=== PATIENT | male | born 1940 | race Caucasian/White ===

== ENCOUNTER 2017-12-04 10:30 | Inpatient (IN) | payer OTHER, MEDICARE ==
[~2017-12-04] VITALS: Ht 182.9 cm; Wt 80.5 kg
[2017-12-04 12:00] VITALS: BP 159/71; PULSE 53; RESP 19; TEMP 97.6; O2SAT 100
[2017-12-04] MEDS ORDERED: NITR1SUB3 SL (14:50)
[2017-12-04] MEDS ORDERED: FOLI1TAB6 (14:50)
[2017-12-04] MEDS ORDERED: RANI150T PO (14:50)
[2017-12-04] MEDS ORDERED: METO50TA PO (14:50)
[2017-12-04] MEDS ORDERED: TERA10CA3 PO (14:50)
[2017-12-04] MEDS ORDERED: POME1CAP (14:50)
[2017-12-04] MEDS ORDERED: LISI40TA PO (14:50)
[2017-12-04] MEDS ORDERED: ASPI-183 PO (14:50)
[2017-12-04] MEDS ORDERED: NALOXONE HCL 0.4 MG/ML AMP IV PUSH PRN (15:00)
[2017-12-04] MEDS ORDERED: Post-op Orders (for Pharmacy) XX ONE (15:00)
[2017-12-04] MEDS ORDERED: SODIUM CHLORIDE 0.9% FLUSH 10 ML FLUSH IV FLUSH PRN (15:00)
[2017-12-04 16:00] VITALS: BP 141/65; PULSE 54; RESP 18; TEMP 97.4; O2SAT 100
[2017-12-04] MEDS: SODIUM CHLOR 0.9% 1000 ML INJ 1,000 ML IV SCH (17:11)
[2017-12-04] MEDS: PANTOPRAZOLE SOD 40 MG DELAYED RELEASE TAB PO SCH (17:11)
--- NOTE | 2017-12-04 17:12 | RADRPT ---
EXAM DATE/TIME: 12/04/2017 15:24 [facility] COMPARISON: No previous studies available for comparison. INDICATIONS : Evaluate for pneumonia, pneumothorax, or communicable disease. MEDICAL HISTORY : None. SURGICAL HISTORY : None. ENCOUNTER: Initial ACUITY: 1 day PAIN SCORE: 0/10 LOCATION: Bilateral chest FINDINGS: Mild elevation of the left hemidiaphragm. Minimal bibasilar interstitial and linear parenchymal opaci ty at the right lung base. Cardiomediastinal contours are within normal limits. Bony thorax is intact . CONCLUSION: 1. Minimal bibasilar scarring/atelectasis. 1. Saúl Casanova MD on December 04, 2017 at 17:00 Board Certified Radiologist. This report was verified electronically.
--- NOTE | 2017-12-04 17:54 | ECHRPT ---
Indication: PRE OP AORTO BIFEM CONCLUSIONS Mildly dilated left ventricle. Wall thickness is normal. The left ventricular systolic function is mildly reduced with an estimated ejection fraction in the range of 45- 50%. Trace mitral valve regurgitation. Trivial pulmonary valve regurgitation. BP: / HR: Rhythm: MEASUREMENTS (Male / Female) Normal Values Technical Quality: 2D ECHO LV Diastolic Diameter PLAX 5.0 cm 4.2 - 5.9 / 3.9 - 5.3 cm LV Systolic Diameter PLAX 4.1 cm IVS Diastolic Thickness 1.1 cm 0.6 - 1.0 / 0.6 - 0.9 cm LVPW Diastolic Thickness 0.7 cm 0.6 - 1.0 / 0.6 - 0.9 cm LV Relative Wall Thickness 0.4 RV Internal Dim ED PLAX 2.1 cm LA Systolic Diameter LX 3.5 cm 3.0 - 4.0 / 2.7 - 3.8 cm M-MODE Aortic Root Diameter MM 3.8 cm AV Cusp Separation MM 2.3 cm DOPPLER Mitral E Point Velocity 102.0 cm/s Mitral A Point Velocity 66.1 cm/s Mitral E to A Ratio 1.5 TR Peak Velocity 236.0 cm/s TR Peak Gradient 22.3 mmHg FINDINGS LEFT VENTRICLE Mildly dilated left ventricle. Wall thickness is normal. The left ventricular systolic function is mildly reduced with an estimated ejection fraction in the range of 45- 50%. Regional wall motion abnormalities. RIGHT VENTRICLE Normal right ventricular size and systolic function. LEFT ATRIUM The left atrial size is normal. RIGHT ATRIUM The right atrial size is normal. ATRIAL SEPTUM Normal atrial septal thickness without atrial level shunting by limited color doppler interrogation. AORTA The aortic root and proximal ascending aorta are normal in size on limited imaging. MITRAL VALVE Trace mitral valve regurgitation. AORTIC VALVE Trileaflet aortic valve. No aortic valve stenosis or regurgitation. TRICUSPID VALVE Structurally normal tricuspid valve. No tricuspid valve stenosis or regurgitation. PULMONARY VALVE Trivial pulmonary valve regurgitation. VESSELS The inferior vena cava is normal in size. PERICARDIUM No pericardial effusion. Aquiles Ayers MD, FACC, [facility] (Electronically Signed) Final Date:04 December 2017 17:53
--- NOTE | 2017-12-04 18:21 | MH ---
cc: Madi Anna MD DATE OF ADMISSION: 12/04/2017 HISTORY OF PRESENT ILLNESS: This 77-year-old pleasant gentleman was referred to my office. The patient has severe claudication and rest pain and was evaluated at [facility]. The patient at this point cannot walk more than about 30 feet and at that point has severe pain in both hips and both legs. He also has rest pain when hanging legs down. PAST MEDICAL HISTORY: Coronary artery disease, hypertension, hyperlipidemia, gastroesophageal reflux, osteoarthritis, benign prostatic hypertrophy. PAST SURGICAL HISTORY: The patient says he had some sort of a stent done and recent SPECT scan was negative. Myocardial infarction in 2002 with percutaneous angioplasty and stents in LAD and diagonal. MEDICATIONS: Include: 1. Atorvastatin. 2. Folic acid. 3. Lisinopril. 4. Metoprolol. 5. Zantac. 6. Terazosin. 7. Aspirin. PHYSICAL EXAMINATION: GENERAL: Shows pleasant 77-year-old gentleman in no acute distress. HEENT: Normocephalic. No trauma to the head. Pupils equal, reactive. Extraocular muscles intact. NECK: Supple. Bilateral carotid pulses and faint left-sided bruit. CHEST: Clear, bilateral breath sounds, decreased somewhat over both lung ramon consistent with some degree of chronic obstructive pulmonary disease. HEART: Regular rhythm. The patient has ictus cordis faint murmur consistent with some degree of mitral insufficiency. ABDOMEN: Soft. No rebound, no guarding, no masses. EXTREMITIES: The patient has very faint femoral pulses, barely palpable on the right and none on the left. They are both dopplerable. The popliteal pulses are weak and dopplerable and dorsalis pedis and posterior tibial are bilateral and weak and dopplerable. Feet are warm, but display severe dependent rubor and elevation pallor. No ulcerations noted. When hanging down, the patient has pain in both legs. NEUROLOGIC: The patient is intact. ASSESSMENT AND PLAN: The patient had several studies that were done at the [facility] recently. The patient has regadenoson pharmacologic stress test that apparently revealed a fixed defect, anterior wall of the left ventricle. The patient had no symptoms. Other than that was nondiagnostic, according to the cardiology. This patient has multiple problems. Severe peripheral vascular disease with ischemic pain at rest is associated with high-degree of limb loss. I have explained this to the patient. CTA with runoff reveals right-sided complete occlusion of the external iliac artery, severe stenosis of the common iliac artery. On the left side, the patient has occlusion of the common iliac artery and stenosis of the external iliac. Both groins shows severe stenosis of the common femoral arteries and both superficial femoral arteries are occluded distally with severe stenosis proximally with reconstitution of popliteal arteries. At this point, the patient will need aortobifemoral bypass with a possible distal bypass to follow depending on the intraoperative findings. I do not believe that any other procedure except maybe axillobifemoral bypass will be adequate. Considering the patient's age, I believe aortobifemoral bypass is the best option and considering his cardiac workup, I believe the same. The patient will be now admitted and have the surgery after basic workup. MD SAMIA Perez/KARENA , 05:39 PM , 06:20 PM
[2017-12-04 18:25] LABS: AUTOMATED NEUTROPHIL # 2.6 TH/MM3 (1.8-7.7); BASOPHIL % 0.9 % (0.0-2.0); EOSINOPHIL # 0.1 TH/MM3 (0-0.4); EOSINOPHIL % 1.8 % (0.0-4.0); HEMATOCRIT 38.8 % (39.0-51.0); HEMOGLOBIN 13.3 GM/DL (13.0-17.0); LYMPH % 28.1 % (9.0-44.0); LYMPHOCYTE # 1.4 TH/MM3 (1.0-4.8); MEAN CELL VOLUME 105.5 FL (80.0-100.0); MEAN CORPUSCULAR HEMOGLOBIN 36.1 PG (27.0-34.0); MEAN CORPUSCULAR HGB CONC 34.2 % (32.0-36.0); MEAN PLATELET VOLUME 9.5 FL (7.0-11.0); MONO % 16.8 % (0.0-8.0); MONOCYTE # 0.8 TH/MM3 (0-0.9); NEUT % 52.4 % (16.0-70.0); PLATELET COUNT 178 TH/MM3 (150-450); RED BLOOD COUNT 3.68 MIL/MM3 (4.50-5.90); RED CELL DISTRIBUTION WIDTH 12.8 % (11.6-17.2); WHITE BLOOD COUNT 4.9 TH/MM3 (4.0-11.0)
[2017-12-04 18:32] LABS: INTERNATIONAL NORMALIZED RATIO 1.1 RATIO; PROTHROMBIN TIME - PATIENT 11.2 SEC (9.8-11.6)
[2017-12-04 18:40] LABS: ALBUMIN 3.9 GM/DL (3.4-5.0); BICARBONATE 27.5 MEQ/L (21.0-32.0); CALCIUM 8.6 MG/DL (8.5-10.1); CREATININE 1.06 MG/DL (0.60-1.30); DIRECT BILIRUBIN ADULT 0.2 MG/DL (0.0-0.2)
[2017-12-04 18:42] LABS: INDIRECT BILIRUBIN 0.5 MG/DL (0.0-0.8); TOTAL BILIRUBIN ADULT 0.7 MG/DL (0.2-1.0); TOTAL PROTEIN 8.1 GM/DL (6.4-8.2)
[2017-12-04] MEDS ORDERED: IOHEXOL 350 MG/ML 10 ML VIAL (for RAD DIAG) IVCONTRAST ONE (20:25)
[2017-12-04 20:52] VITALS: BP 175/73; PULSE 69; RESP 18; TEMP 97.9; O2SAT 98
[2017-12-04] MEDS: METOPROLOL TARTRATE 50 MG TAB PO SCH (20:54)
[2017-12-04] MEDS: DOCUSATE SODIUM 100 MG CAP PO SCH (20:54)
[2017-12-04] MEDS: SODIUM CHLORIDE 0.9% FLUSH 10 ML FLUSH IV FLUSH SCH (20:55)
--- NOTE | 2017-12-04 21:51 | RADRPT ---
EXAM DATE/TIME: 12/04/2017 20:18 [facility] COMPARISON: No previous studies available for comparison. INDICATIONS : Left lower extremity occlusion. IV CONTRAST: 100 cc Omnipaque 350 (iohexol) IV RADIATION DOSE: 2.31 CTDIvol (mGy) MEDICAL HISTORY : Cardiovascular disease. Hypertension. SURGICAL HISTORY : None. ENCOUNTER: Initial ACUITY: 1 day PAIN SCALE: 0/10 LOCATION: Left leg TECHNIQUE: Volumetric scanning was performed using a multi-row detector CT scanner. The data was post processed with a variety of visualization algorithms including full volume maximum intensity pr ojection, multi-planar sliding thin slab reformation, curved planar reformation, and surface renderin g techniques. Using automated exposure control and adjustment of the mA and/or kV according to patie nt size, radiation dose was kept as low as reasonably achievable to obtain optimal diagnostic quality images. DICOM format image data is available electronically for review and comparison. FINDINGS: ABDOMINAL AORTA: Moderate atherosclerotic vascular calcifications are present in nondilated abdominal aorta. Calcified plaque is seen at the origin of the celiac and SMA. SMA stenosis is borderline si gnificant. Calcified plaque is seen at the origin of the left renal not felt to be significant. Vaughn nosis on the right renal is borderline significant. . RIGHT LEG: Extensive iliac and aortoiliac disease is present with a large amount of plaque at the origin of the right common iliac extending into the right common femoral a cross the entire l ength of the iliac this is probably significant. Large amount of calcific plaque is seen at the origin of the right common femoral and is scattered throughout a small SFA. The profunda disappears in the thigh. Large amount calcification is present in the tibial peroneal trunk calcified anterior tibial, pe roneal and posterior tibial vessels identified. Very little runoff to the foot from 8 to lateralize dorsalis pedis. The posterior tibial is the worst vessel in the calf. LEFT LEG: Similar aortoiliac disease is present at the origin of the left common il iac extending into the external and common femoral. Short segment occlusion is seen in the common f emoral with large inferior epigastric collaterals. Extensively calcified superficial femoral artery is present providing very poor runoff to the popliteal artery. The profunda is severely compromised by a large amount of plaque and is very small and diminutive. Large amount calcification is seen in the popliteal artery extending into the trifurcation The anterior tibial artery provides most of t he runoff to the foot . The peroneal artery and anterior tibial artery do not provide use of coronal to foot. ANCILLARY FINDINGS: Calcified pericardium is noted. Liver is small. Densely calcified mesenteric vessels are evident. There is no pancreatic mass. There is no renal mass. There is no adenopathy. Multiple diverticuli in the sigmoid colon without diverticulitis. CONCLUSION: Significant aortoiliac disease with inflow stenosis compromising inflow. Poor SFA runoff to the foot on the right. Short segment common femoral occlusion on the left with poor SFA runoff to the foot. Danny Holley MD FACR on December 04, 2017 at 21:36 Board Certified Radiologist. This report was verified electronically.
[2017-12-04] MEDS: TERAZOSIN HCL 5 MG CAP PO SCH (22:12)
[2017-12-05] VITALS: BP 122/60; PULSE 54; RESP 20; TEMP 97.8; O2SAT 99
[2017-12-05] MEDS: SODIUM CHLOR 0.9% 1000 ML INJ 1,000 ML IV SCH ×2 (04:08→14:57)
[2017-12-05 06:47] LABS: BASOPHIL % 0.9 % (0.0-2.0); EOSINOPHIL # 0.2 TH/MM3 (0-0.4); HEMATOCRIT 36.4 % (39.0-51.0); HEMOGLOBIN 12.8 GM/DL (13.0-17.0); LYMPH % 28.1 % (9.0-44.0); LYMPHOCYTE # 1.1 TH/MM3 (1.0-4.8); MEAN CELL VOLUME 103.5 FL (80.0-100.0); MEAN CORPUSCULAR HEMOGLOBIN 36.3 PG (27.0-34.0); MEAN CORPUSCULAR HGB CONC 35.1 % (32.0-36.0); MEAN PLATELET VOLUME 9.4 FL (7.0-11.0); MONO % 14.5 % (0.0-8.0); MONOCYTE # 0.6 TH/MM3 (0-0.9); NEUT % 52.5 % (16.0-70.0); PLATELET COUNT 151 TH/MM3 (150-450); RED BLOOD COUNT 3.52 MIL/MM3 (4.50-5.90); RED CELL DISTRIBUTION WIDTH 12.8 % (11.6-17.2); WHITE BLOOD COUNT 3.9 TH/MM3 (4.0-11.0)
[2017-12-05 06:53] LABS: INTERNATIONAL NORMALIZED RATIO 1.1 RATIO; PROTHROMBIN TIME - PATIENT 11.5 SEC (9.8-11.6)
[2017-12-05 07:07] LABS: ALBUMIN 3.2 GM/DL (3.4-5.0); BICARBONATE 24.9 MEQ/L (21.0-32.0); CALCIUM 8.2 MG/DL (8.5-10.1); CREATININE 0.95 MG/DL (0.60-1.30); DIRECT BILIRUBIN ADULT 0.2 MG/DL (0.0-0.2)
[2017-12-05 07:10] LABS: INDIRECT BILIRUBIN 0.5 MG/DL (0.0-0.8); TOTAL BILIRUBIN ADULT 0.7 MG/DL (0.2-1.0); TOTAL PROTEIN 6.9 GM/DL (6.4-8.2)
[2017-12-05 08:00] VITALS: BP 122/72; PULSE 63; RESP 17; TEMP 98.2; O2SAT 99
--- NOTE | 2017-12-05 08:39 | PD.CONS ---
HPI Service [facility] Consult Requested By Reason for Consult medical management [facility]: History of Present Illness patient is a 77 y/o male with history of CAD, hypertension, who's been complaining of claudication for a while. he says that now he can walk just less than a block and each time he has to rest a bit to get some relief from the leg pain.he was found to have PVD for which he's been admitted to the hospital and will undergo aortobifemoral bypass per vascular surgery. he denies any chest pain, sob at this time. he says that he's had some hoarseness that has been going on for a month but he says that he had full work-up including laryngoscopy which was normal. Review of Systems Constitutional: DENIES: Fever, Weight loss, Chills, Night Sweats Eyes: DENIES: Blurred vision, Diplopia, Vision loss, Double Vision Ears, nose, mouth, throat: DENIES: Tinnitus, Vertigo, Throat pain, Epistaxis Respiratory: DENIES: Apneas, Cough, Snoring, Wheezing, Hemoptysis, Sputum production, Shortness of breath Cardiovascular: DENIES: Chest pain, Palpitations, Syncope, Dyspnea on Exertion , PND, Lower Extremity Edema, Orthopnea, Claudication Gastrointestinal: DENIES: Abdominal pain, Black stools, Bloody stools, Constipation, Diarrhea, Nausea, Vomiting, Difficulty Swallowing, Anorexia Genitourinary: DENIES: Urinary frequency, Urgency, Hematuria, Dysuria Musculoskeletal: DENIES: Joint pain, Muscle aches, Stiffness, Joint Swelling Integumentary: DENIES: Rash Neurologic: DENIES: Abnormal gait, Headache, Localized weakness, Paresthesias, Seizures, Speech Problems, Tremor, Poor Balance Psychiatric: DENIES: Anxiety, Confusion, Mood changes, Depression, Hallucinations, Agitation, Suicidal Ideation, Homicidal Ideation, Delusions claudication/ hoarseness. Past Family Social History Allergies: Coded Allergies: No Known Allergies (Unverified , 12/04/17) Past Medical History CAD/ hypertension Past Surgical History foot surgery/vasectomy. Reported Medications aspirin/ lisinopril/ metoprolol. Active Ordered Medications Inpatient Medications Acetaminophen/ Hydrocodone Bitart (Alexander 5-325 Mg) 1 tab Q4H PRN PO PAIN SCALE 3 TO 5; Start 12/04/17 at 15:00 Aspirin (Aspirin) 325 mg DAILY PO ; Start 12/05/17 at 09:00 Docusate Sodium (Colace) 100 mg BID PO ; Start 12/04/17 at 21:00 Enoxaparin Sodium (Lovenox Inj) 40 mg Q24H SQ ; Start 12/04/17 at 15:00; Status UNV Lisinopril (Prinivil) 40 mg DAILY PO ; Start 12/05/17 at 09:00 Metoprolol Tartrate (Lopressor) 50 mg BID PO Last administered on 12/04/17at 20: 54; Start 12/04/17 at 21:00 Miscellaneous Information (Post-op Orders (for Pharmacy)) STAT ONCE XX ; Start 12/04/17 at 15:00; Stop 12/04/17 at 15:01; Status UNV Naloxone HCl (Narcan Inj) 0.4 mg UNSCH PRN IV PUSH SEE LABEL COMMENTS; Start at 15:00 Ondansetron HCl (Zofran Inj) 4 mg Q6H PRN IV PUSH NAUSEA OR VOMITING; Start 12/04/17 at 15:00 Pantoprazole Sodium (Protonix) 40 mg Q24H PO Last administered on 12/04/17at 17: 11; Start 12/04/17 at 15:00 Sodium Chloride (NS Flush) 2 ml BID IV FLUSH Last administered on 12/04/17at 20: 55; Start 12/04/17 at 21:00 Terazosin HCl (Hytrin) 20 mg HS PO Last administered on 12/04/17at 22:12; Start 12/04/17 at 21:00 Family History not significant. Social History quit smoking years ago- drinks occasionally. Physical Exam Vital Signs Vital Signs Date Time Temp Pulse Resp B/P (MAP) Pulse Ox O2 Delivery O2 Flow Rate FiO2 12/05/17 00:00 97.8 54 20 122/60 (80) 99 12/04/17 20:52 97.9 69 18 175/73 (107) 98 12/04/17 16:00 97.4 54 18 141/65 (90) 100 12/04/17 12:00 97.6 53 19 159/71 (100) 100 Physical Exam GENERAL: This is a well-nourished, well-developed patient, in no apparent distress. SKIN: No rashes, ecchymoses or lesions. Cool and dry. HEAD: Atraumatic. Normocephalic. No temporal or scalp tenderness. EYES: Pupils equal round and reactive. Extraocular motions intact. No scleral icterus. No injection or drainage. ENT: Nose without bleeding, purulent drainage or septal hematoma. Throat without erythema, tonsillar hypertrophy or exudate. Uvula midline. Airway patent. NECK: Trachea midline. No JVD or lymphadenopathy. Supple, nontender, no meningeal signs. CARDIOVASCULAR: Regular rate and rhythm without murmurs, gallops, or rubs. RESPIRATORY: Clear to auscultation. Breath sounds equal bilaterally. No wheezes , rales, or rhonchi. GASTROINTESTINAL: Abdomen soft, non-tender, nondistended. No hepato-splenomegaly , or palpable masses. No guarding. MUSCULOSKELETAL: Extremities without clubbing, cyanosis, or edema. No joint tenderness, effusion, or edema noted. No calf tenderness. Negative Homans sign bilaterally. NEUROLOGICAL: Awake and alert. Cranial nerves II through XII intact. Motor and sensory grossly within normal limits. Five out of 5 muscle strength in all muscle groups. Normal speech. Laboratory Laboratory Tests Test 12/04/17 17:35 12/05/17 05:35 White Blood Count 4.9 3.9 Red Blood Count 3.68 3.52 Hemoglobin 13.3 12.8 Hematocrit 38.8 36.4 Mean Corpuscular Volume 105.5 103.5 Mean Corpuscular Hemoglobin 36.1 36.3 Mean Corpuscular Hemoglobin Concent 34.2 35.1 Red Cell Distribution Width 12.8 12.8 Platelet Count 178 151 Mean Platelet Volume 9.5 9.4 Neutrophils (%) (Auto) 52.4 52.5 Lymphocytes (%) (Auto) 28.1 28.1 Monocytes (%) (Auto) 16.8 14.5 Eosinophils (%) (Auto) 1.8 4.0 Basophils (%) (Auto) 0.9 0.9 Neutrophils # (Auto) 2.6 2.0 Lymphocytes # (Auto) 1.4 1.1 Monocytes # (Auto) 0.8 0.6 Eosinophils # (Auto) 0.1 0.2 Basophils # (Auto) 0.0 0.0 CBC Comment DIFF FINAL DIFF FINAL Differential Comment Prothrombin Time 11.2 11.5 Prothromb Time International Ratio 1.1 1.1 Blood Urea Nitrogen 8 7 Creatinine 1.06 0.95 Random Glucose 98 86 Total Protein 8.1 6.9 Albumin 3.9 3.2 Calcium Level 8.6 8.2 Alkaline Phosphatase 98 84 Aspartate Amino Transf (AST/SGOT) 25 22 Alanine Aminotransferase (ALT/SGPT) 22 18 Total Bilirubin 0.7 0.7 Direct Bilirubin 0.2 0.2 Sodium Level 134 137 Potassium Level 3.9 3.8 Chloride Level 100 105 Carbon Dioxide Level 27.5 24.9 Anion Gap 7 7 Estimat Glomerular Filtration Rate 68 77 Indirect Bilirubin 0.5 0.5 Result Diagram: 12/05/17 0535 12/05/17 0535 Imaging Last Impressions Chest X-Ray 12/04/17 0000 Signed Impressions: Service Date/Time: Monday, December 04, 2017 15:24 - CONCLUSION: 1. Minimal bibasilar scarring/atelectasis. 1. Saúl Casanova MD Aorta w/Runoff CTA 12/04/17 0000 Signed Impressions: Service Date/Time: Monday, December 04, 2017 20:18 - CONCLUSION: Significant aortoiliac disease with inflow stenosis compromising inflow. Poor SFA runoff to the foot on the right. Short segment common femoral occlusion on the left with poor SFA runoff to the foot. Danny Holley MD FACR Assessment and Plan Assessment and Plan A/P - PVD CTA runoff ; Significant aortoiliac disease with inflow stenosis compromising inflow. Poor SFA runoff to the foot on the right. Short segment common femoral occlusion on the left with poor SFA runoff to the foot. plan for aortobifemoral bypass- per vascular surgery -CAD- s/p stent placement; continue aspirin and metoprolol/ echo with EF 45% -hypertension; resumed home meds -DVT prophylaxis with subq Lovenox. thank you for the consult. Discussed Condition With the patient. Kiah Alicia MD Dec 05, 2017 08:39
[2017-12-05] MEDS: DOCUSATE SODIUM 100 MG CAP PO SCH ×2 (09:00→21:00)
[2017-12-05] MEDS: SODIUM CHLORIDE 0.9% FLUSH 10 ML FLUSH IV FLUSH SCH ×2 (09:00→21:00)
[2017-12-05] MEDS: LISINOPRIL 20 MG TAB PO SCH (09:10)
[2017-12-05] MEDS: ASPIRIN 325 MG TAB PO SCH (09:11)
[2017-12-05] MEDS: METOPROLOL TARTRATE 50 MG TAB PO SCH ×2 (09:11→21:59)
[2017-12-05 12:00] VITALS: BP 132/62; PULSE 53; RESP 17; TEMP 97.6; O2SAT 99
--- NOTE | 2017-12-05 13:18 | PD.CAR.PN ---
CVT Progress Note Subjective/Hospital Course: 12/05/2017 As above noted in the H&P this patient has severe diffuse peripheral vascular disease with claudication at rest Patient has near total occlusion of common iliac arteries and then occlusion of the external iliac artery more distally with severe common femoral near occlusive disease and multilevel stenosis of both SFAs in the range of 90% Proximal popliteal arteries are equally diseased and trifurcations are stenosed in both legs Dominant vessel to left and right foot is anterior tibial artery and rest of the vessels are bits and pieces segmented throughout Patient needs aortobifemoral bypass and essentially bilateral femoral-popliteal bypass but his left leg is more symptomatic even at rest Patient will undergo aortobifemoral bypass and possibly left femoral-popliteal bypass tomorrow There is a small chance that aorta will be so calcified that it would be hard to enter. At that point we would convert to axillobifemoral bypass Discussed with patient at length the benefits and the risks of the procedure Objective: Vital Signs Date Time Temp Pulse Resp B/P (MAP) Pulse Ox O2 Delivery O2 Flow Rate FiO2 12/05/17 12:00 97.6 53 17 132/62 (85) 99 12/05/17 08:00 98.2 63 17 122/72 (89) 99 12/05/17 00:00 97.8 54 20 122/60 (80) 99 12/04/17 20:52 97.9 69 18 175/73 (107) 98 12/04/17 16:00 97.4 54 18 141/65 (90) 100 Labs: Laboratory Tests Test 12/05/17 05:35 White Blood Count 3.9 TH/MM3 (4.0-11.0) Red Blood Count 3.52 MIL/MM3 (4.50-5.90) Hemoglobin 12.8 GM/DL (13.0-17.0) Hematocrit 36.4 % (39.0-51.0) Mean Corpuscular Volume 103.5 FL (80.0-100.0) Mean Corpuscular Hemoglobin 36.3 PG (27.0-34.0) Mean Corpuscular Hemoglobin Concent 35.1 % (32.0-36.0) Red Cell Distribution Width 12.8 % (11.6-17.2) Platelet Count 151 TH/MM3 (150-450) Mean Platelet Volume 9.4 FL (7.0-11.0) Neutrophils (%) (Auto) 52.5 % (16.0-70.0) Lymphocytes (%) (Auto) 28.1 % (9.0-44.0) Monocytes (%) (Auto) 14.5 % (0.0-8.0) Eosinophils (%) (Auto) 4.0 % (0.0-4.0) Basophils (%) (Auto) 0.9 % (0.0-2.0) Neutrophils # (Auto) 2.0 TH/MM3 (1.8-7.7) Lymphocytes # (Auto) 1.1 TH/MM3 (1.0-4.8) Monocytes # (Auto) 0.6 TH/MM3 (0-0.9) Eosinophils # (Auto) 0.2 TH/MM3 (0-0.4) Basophils # (Auto) 0.0 TH/MM3 (0-0.2) CBC Comment DIFF FINAL Differential Comment Prothrombin Time 11.5 SEC (9.8-11.6) Prothromb Time International Ratio 1.1 RATIO Blood Urea Nitrogen 7 MG/DL (7-18) Creatinine 0.95 MG/DL (0.60-1.30) Random Glucose 86 MG/DL (74-106) Total Protein 6.9 GM/DL (6.4-8.2) Albumin 3.2 GM/DL (3.4-5.0) Calcium Level 8.2 MG/DL (8.5-10.1) Alkaline Phosphatase 84 U/L (45-117) Aspartate Amino Transf (AST/SGOT) 22 U/L (15-37) Alanine Aminotransferase (ALT/SGPT) 18 U/L (12-78) Total Bilirubin 0.7 MG/DL (0.2-1.0) Direct Bilirubin 0.2 MG/DL (0.0-0.2) Sodium Level 137 MEQ/L (136-145) Potassium Level 3.8 MEQ/L (3.5-5.1) Chloride Level 105 MEQ/L (98-107) Carbon Dioxide Level 24.9 MEQ/L (21.0-32.0) Anion Gap 7 MEQ/L (5-15) Estimat Glomerular Filtration Rate 77 ML/MIN (>89) Indirect Bilirubin 0.5 MG/DL (0.0-0.8) Result Diagram: 12/05/17 0535 12/05/17 0535 Madi Anna MD Dec 05, 2017 13:18
[2017-12-05] MEDS ORDERED: CEFAZOLIN INJ 2,000 MG in SODIUM CHLORIDE 0.9% INJ 100 ML IV SCH (13:30)
--- NOTE | 2017-12-05 13:40 | EKG ---
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
[2017-12-05] MEDS: PANTOPRAZOLE SOD 40 MG DELAYED RELEASE TAB PO SCH (14:57)
[2017-12-05] MEDS: ENOXAPARIN SODIUM 40 MG/0.4 ML SYRINGE SQ SCH (14:58)
[2017-12-05 16:00] VITALS: BP 132/45; PULSE 59; RESP 18; TEMP 97.9; O2SAT 100
[2017-12-05 20:00] VITALS: BP 149/72; PULSE 60; RESP 18; TEMP 97.7; O2SAT 98
[2017-12-05] MEDS: TERAZOSIN HCL 5 MG CAP PO SCH (21:59)
[2017-12-06] VITALS: BP 152/67; PULSE 69; RESP 18; O2SAT 97
[2017-12-06] MEDS: SODIUM CHLOR 0.9% 1000 ML INJ 1,000 ML IV SCH ×2 (03:08→19:45)
[2017-12-06] MEDS ORDERED: SODIUM CHLORID 0.9% 500 ML IV PRN (03:30)
[2017-12-06] MEDS ORDERED: POVIDONE IODINE 5% (ANTISEPSIS KIT) 4 APPLICATIONS EACH NARE PRN (03:30)
[2017-12-06] MEDS ORDERED: LACTATED RINGER'S 1000 ML IV PRN (03:30)
[2017-12-06] MEDS ORDERED: CHLORHEXIDINE GLUCONATE 2 % 1 PACK (2 CLOTHS) TOPICAL PRN (03:30)
[2017-12-06 04:00] VITALS: BP 140/65; PULSE 65; RESP 18; TEMP 97.7; O2SAT 97
[2017-12-06 08:00] VITALS: BP 148/63; PULSE 67; RESP 16; TEMP 98.2; O2SAT 97
[2017-12-06] MEDS ORDERED: PROTAMINE SULFATE 50 MG/5 ML VIAL ONE (08:15)
[2017-12-06] MEDS ORDERED: HEPARIN SODIUM - IV 10,000 UNITS/10 ML VIAL ONE (08:15)
[2017-12-06] MEDS ORDERED: HEPARIN SODIUM - SQ 10,000 UNITS/ML VIAL ONE ×3 (08:15→16:55)
[2017-12-06] MEDS ORDERED: BUPIVACAINE/EPINEPHRINE 0.25% 50 ML VIAL ONE (08:15)
[2017-12-06] MEDS ORDERED: THROMBIN (TOPICAL) 5,000 UNIT VIAL ONE (08:16)
[2017-12-06] MEDS ORDERED: GELFOAM SIZE 100 ONE (08:16)
[2017-12-06] MEDS ORDERED: ACETAMINOPHEN 1000 MG/100 ML 100 ML IV ONE (08:55)
[2017-12-06] MEDS ORDERED: MIDAZOLAM HCL 2 MG/2 ML VIAL ONE (08:55)
[2017-12-06] MEDS ORDERED: fentaNYL CITRATE 250 MCG/5 ML AMP ONE ×2 (08:56→14:01)
[2017-12-06] MEDS: SODIUM CHLORIDE 0.9% FLUSH 10 ML FLUSH IV FLUSH SCH ×2 (09:00→21:00)
[2017-12-06] MEDS: ASPIRIN 325 MG TAB PO SCH (09:00)
[2017-12-06] MEDS: DOCUSATE SODIUM 100 MG CAP PO SCH ×2 (09:00→21:00)
[2017-12-06] MEDS: METOPROLOL TARTRATE 50 MG TAB PO SCH ×2 (09:08→21:00)
[2017-12-06] MEDS: LISINOPRIL 20 MG TAB PO SCH (09:08)
--- NOTE | 2017-12-06 09:51 | HHI.PR ---
Subjective Remarks in no acute distress. looks comfortable. awaiting surgical intervention. no new complaints. Objective Vitals Vital Signs Date Time Temp Pulse Resp B/P (MAP) Pulse Ox O2 Delivery O2 Flow Rate FiO2 12/06/17 08:00 98.2 67 16 148/63 (91) 97 12/06/17 04:00 97.7 65 18 140/65 (90) 97 12/06/17 00:00 69 18 152/67 (95) 97 12/05/17 20:00 97.7 60 18 149/72 (97) 98 12/05/17 16:00 97.9 59 18 132/45 (74) 100 12/05/17 12:00 97.6 53 17 132/62 (85) 99 I/O 12/05/17 12/05/17 12/05/17 12/06/17 12/06/17 12/06/17 07:00 15:00 23:00 07:00 15:00 23:00 Intake Total 1000 ml 980 ml 960 ml 0 ml Balance 1000 ml 980 ml 960 ml 0 ml Intake Oral 960 ml 0 ml IV Total 1000 ml 980 ml # Voids 3 7 1 # Bowel Movements 7 0 Result Diagram: 12/05/17 0535 12/05/17 0535 Imaging Last Impressions Chest X-Ray 12/04/17 0000 Signed Impressions: Service Date/Time: Monday, December 04, 2017 15:24 - CONCLUSION: 1. Minimal bibasilar scarring/atelectasis. 1. Saúl Casanova MD Aorta w/Runoff CTA 12/04/17 0000 Signed Impressions: Service Date/Time: Monday, December 04, 2017 20:18 - CONCLUSION: Significant aortoiliac disease with inflow stenosis compromising inflow. Poor SFA runoff to the foot on the right. Short segment common femoral occlusion on the left with poor SFA runoff to the foot. Danny Holley MD FACR Objective Remarks GENERAL: This is a well-nourished, well-developed patient, in no apparent distress. CARDIOVASCULAR: Regular rate and regular rhythm without murmurs, gallops, or rubs. RESPIRATORY: Clear to auscultation. Breath sounds equal bilaterally. No wheezes , rales, or rhonchi. GASTROINTESTINAL: Abdomen soft, non-tender, nondistended. Normal, active bowel sounds MUSCULOSKELETAL: Extremities without clubbing, cyanosis, or edema. NEURO: Alert & Oriented x4 to person, place, time, situation. Moves all ext x4 Medications and IVs Inpatient Medications Acetaminophen/ Hydrocodone Bitart ([place] 5-325 Mg) 1 tab Q4H PRN PO PAIN SCALE 3 TO 5; Start 12/04/17 at 15:00 Aspirin (Aspirin) 325 mg DAILY PO Last administered on 12/05/17at 09:11; Start at 09:00 Cefazolin Sodium 2000 mg/Sodium Chloride 120 ml @ 240 mls/hr WARDROBE COORDINATOR IV ; Start 12/05/17 at 13:30; Stop 12/08/17 at 13:29 Chlorhexidine Gluconate (Chlorhexidine 2% Cloth) 3 pack WARDROBE COORDINATOR PRN TOPICAL SEE LABEL COMMENTS; Start 12/06/17 at 03:30; Stop 12/09/17 at 03:29 Docusate Sodium (Colace) 100 mg BID PO ; Start 12/04/17 at 21:00 Enoxaparin Sodium (Lovenox Inj) 40 mg Q24H SQ Last administered on 12/05/17at 14: 58; Start 12/05/17 at 13:00 Lactated Ringer's 1,000 ml @ 30 mls/hr Q24H PRN IV SEE LABEL COMMENTS; Start at 03:30; Stop 12/09/17 at 03:29 Lisinopril (Prinivil) 40 mg DAILY PO Last administered on 12/06/17at 09:08; Start 12/05/17 at 09:00 Metoprolol Tartrate (Lopressor) 50 mg BID PO Last administered on 12/06/17at 09: 08; Start 12/04/17 at 21:00 Miscellaneous Information (Post-op Orders (for Pharmacy)) STAT ONCE XX ; Start 12/04/17 at 15:00; Stop 12/05/17 at 12:32; Status DC Naloxone HCl (Narcan Inj) 0.4 mg UNSCH PRN IV PUSH SEE LABEL COMMENTS; Start at 15:00 Ondansetron HCl (Zofran Inj) 4 mg Q6H PRN IV PUSH NAUSEA OR VOMITING; Start 12/04/17 at 15:00 Pantoprazole Sodium (Protonix) 40 mg Q24H PO Last administered on 12/04/17at 17: 11; Start 12/04/17 at 15:00 Povidone Iodine (Betadine 5% Antisepsis Kit) 1 applic WARDROBE COORDINATOR PRN EACH NARE SEE LABEL COMMENTS; Start 12/06/17 at 03:30; Stop 12/09/17 at 03:29 Sodium Chloride 500 ml @ 30 mls/hr [id number] PRN IV SEE LABEL COMMENTS; Start 12/06/17 at 03:30; Stop 12/09/17 at 03:29 Sodium Chloride (NS Flush) 2 ml BID IV FLUSH Last administered on 12/04/17at 20: 55; Start 12/04/17 at 21:00 Terazosin HCl (Hytrin) 20 mg HS PO Last administered on 12/05/17at 21:59; Start 12/04/17 at 21:00 A/P Assessment and Plan A/P - PVD CTA runoff ; Significant aortoiliac disease with inflow stenosis compromising inflow. Poor SFA runoff to the foot on the right. Short segment common femoral occlusion on the left with poor SFA runoff to the foot. plan for aortobifemoral bypass today- per vascular surgery -CAD- s/p stent placement; continue aspirin and metoprolol/ echo with EF 45% -hypertension; resumed home meds -DVT prophylaxis with subq Lovenox. Discharge Planning for surgical intervention today. Kiah Alicia MD Dec 06, 2017 09:51
[2017-12-06] MEDS ORDERED: SODIUM CHLORIDE 0.9% 10 ML VIAL IV FLUSH ONE (12:00)
[2017-12-06] MEDS ORDERED: ePHEDrine/NS 25 MG/5 ML SYRINGE IV ONE (12:00)
[2017-12-06] MEDS ORDERED: LIDOCAINE HCL 1% PF 5 ML SYRINGE OTHER ONE (12:00)
[2017-12-06] MEDS ORDERED: NORMOSOL R INJ 4,000 ML IV ONE (12:00)
[2017-12-06] MEDS ORDERED: PROPOFOL 200 MG/20 ML AMP IV ONE (12:00)
[2017-12-06] MEDS ORDERED: ceFAZolin INJ 1,000 MG VIAL IV ONE (12:00)
[2017-12-06] MEDS ORDERED: VECURONIUM BROMIDE 20 MG VIAL IV ONE (12:00)
[2017-12-06] MEDS ORDERED: ONDANSETRON HCL 4 MG/2 ML VIAL IV ONE (12:00)
[2017-12-06] MEDS ORDERED: SODIUM CHLORID 0.9% 500 ML INJ 500 ML IV ONE (12:00)
[2017-12-06] MEDS ORDERED: PHENYLEPHRINE HCL 10 MG/ML VIAL IV ONE (12:00)
[2017-12-06] MEDS ORDERED: ROCURONIUM INJ 50 MG/5 ML SYRINGE IV PUSH ONE (12:00)
[2017-12-06] MEDS ORDERED: LACTATED RINGER'S 1000 ML INJ 2,000 ML IV ONE (12:00)
[2017-12-06] MEDS ORDERED: DEXAMETHASONE SOD PHOS 4 MG/ML VIAL IV ONE (12:00)
[2017-12-06] MEDS ORDERED: PHENYLEPH/NS 1000 MCG/10 ML SYR IV ONE (12:00)
[2017-12-06] MEDS: ENOXAPARIN SODIUM 40 MG/0.4 ML SYRINGE SQ SCH (13:00)
[2017-12-06] MEDS ORDERED: ceFAZolin INJ 1,000 MG VIAL ONE (16:32)
[2017-12-06 17:04] LABS: HEMATOCRIT 30.9 % (39.0-51.0); HEMOGLOBIN 10.6 GM/DL (13.0-17.0)
[2017-12-06] MEDS ORDERED: SUGAMMADEX SODIUM 200 MG/2 ML VIAL IV PUSH ONE (17:42)
[2017-12-06] MEDS ORDERED: PIPERACIL-TAZO 4.5 GM PREMIX 100 ML IV ONE (18:00)
[2017-12-06] MEDS ORDERED: VASOPRESSIN 20 UNITS/ML VIAL ONE (18:27)
--- NOTE | 2017-12-06 18:40 | RADRPT ---
EXAM DATE/TIME: 12/06/2017 19:07 [facility] COMPARISON: No previous studies available for comparison. INDICATIONS : Miss needle count. MEDICAL HISTORY : None. SURGICAL HISTORY : None. ENCOUNTER: Subsequent ACUITY: 2 days PAIN SCORE: Non-responsive. LOCATION: [place] FINDINGS: Supine view of the abdomen was performed. The abdominal bowel gas pattern is normal. No abnormal ma sses, calcifications, or organomegaly is seen. The osseous structures are unremarkable. CONCLUSION: Surgical clips, no radiopaque surgical clip or needle. Danny Holley MD FACR on December 06, 2017 at 18:37 Board Certified Radiologist. This report was verified electronically.
[2017-12-06] MEDS: PHENYLEPHRINE 40 MG in D5W 500 ML IV PRN (19:15)
[2017-12-06] MEDS ORDERED: PHENYLEPHRINE HCL 10 MG/ML VIAL ONE (19:26)
[2017-12-06] MEDS: LACTATED RINGER'S 1000 ML INJ 1,000 ML IV SCH (20:05)
--- NOTE | 2017-12-06 20:07 | RADRPT ---
EXAM DATE/TIME: 12/06/2017 20:40 [facility] COMPARISON: CHEST SINGLE AP, December 04, 2017, 15:24. INDICATIONS : Central line placement. MEDICAL HISTORY : None. SURGICAL HISTORY : None. ENCOUNTER: Initial ACUITY: 1 day PAIN SCORE: Non-responsive. LOCATION: Bilateral chest FINDINGS: Nasogastric tube midesophagus. Central line in the superior vena cava. Minimal parenchymal changes left base. CONCLUSION: Central line tip superior vena cava.. Danny Holley MD FACR on December 06, 2017 at 20:01 Board Certified Radiologist. This report was verified electronically.
[2017-12-06] MEDS ORDERED: SODIUM CHLORIDE 0.9% FLUSH 10 ML FLUSH IV FLUSH PRN (20:15)
[2017-12-06] MEDS ORDERED: DO NOT ADM ANY ANTICOAGULANT DRUGS PRN (20:15)
[2017-12-06] MEDS ORDERED: Post-op Orders (for Pharmacy) XX ONE (20:15)
[2017-12-06] MEDS ORDERED: NALOXONE HCL 0.4 MG/ML AMP IV PUSH PRN (20:15)
[2017-12-06] MEDS ORDERED: TERBUTALINE INJ 1 MG/ML AMP SQ PRN (20:30)
--- NOTE | 2017-12-06 20:54 | RADRPT ---
EXAM DATE/TIME: 12/06/2017 20:12 [facility] COMPARISON: CHEST SINGLE AP, December 04, 2017, 15:24. INDICATIONS : Central line placement. MEDICAL HISTORY : None. SURGICAL HISTORY : None. ENCOUNTER: Initial ACUITY: 2 days PAIN SCORE: 0/10 LOCATION: Bilateral chest FINDINGS: Line in good position. Nasogastric tube in esophagus. Pericardial calcifications on the right. Mil d complicated cardiomegaly. CONCLUSION: Mild compensated cardiomegaly Central line in good position. Nasogastric tube midesophagus Danny Holley MD FACR on December 06, 2017 at 20:50 Board Certified Radiologist. This report was verified electronically.
[2017-12-06] MEDS: PANTOPRAZOLE SODIUM 40 MG VIAL IV PUSH SCH (21:00)
[2017-12-06] MEDS: metroNIDAZOLE 500 MG INJ 100 ML IV SCH (21:00)
[2017-12-06] MEDS: TERAZOSIN HCL 5 MG CAP PO SCH (21:00)
[2017-12-06 22:58] VITALS: O2SAT 99
[2017-12-06] MEDS ORDERED: DILTIAZEM HCL 25 MG/5 ML VIAL ONE (22:59)
[2017-12-06 23:00] VITALS: BP_SYST 102; BP_SYST 106; BP_DIAS 45; BP_DIAS 54; PULSE 76; RESP 18; TEMP 98.5; O2SAT 100
[2017-12-07] VITALS (9 sets, daily range): BP systolic 97–147; BP diastolic 37–58; PULSE 72–114; RESP 16–20; TEMP 97.9–98.5; O2SAT 91–99
[2017-12-07] MEDS: LACTATED RINGER'S 1000 ML INJ 1,000 ML IV SCH ×4 (01:05→17:57)
[2017-12-07] MEDS: metroNIDAZOLE 500 MG INJ 100 ML IV SCH ×2 (04:36→12:00)
[2017-12-07 05:02] LABS: AUTOMATED NEUTROPHIL # 9.4 TH/MM3 (1.8-7.7); BASOPHIL % 0.3 % (0.0-2.0); HEMATOCRIT 26.5 % (39.0-51.0); HEMOGLOBIN 9.1 GM/DL (13.0-17.0); LYMPH % 4.4 % (9.0-44.0); LYMPHOCYTE # 0.5 TH/MM3 (1.0-4.8); MEAN CELL VOLUME 104.2 FL (80.0-100.0); MEAN CORPUSCULAR HEMOGLOBIN 35.8 PG (27.0-34.0); MEAN CORPUSCULAR HGB CONC 34.4 % (32.0-36.0); MEAN PLATELET VOLUME 9.6 FL (7.0-11.0); MONO % 7.9 % (0.0-8.0); MONOCYTE # 0.9 TH/MM3 (0-0.9); NEUT % 87.4 % (16.0-70.0); PLATELET COUNT 114 TH/MM3 (150-450); RED BLOOD COUNT 2.55 MIL/MM3 (4.50-5.90); RED CELL DISTRIBUTION WIDTH 12.9 % (11.6-17.2); WHITE BLOOD COUNT 10.8 TH/MM3 (4.0-11.0)
[2017-12-07 05:26] LABS: BICARBONATE 20.8 MEQ/L (21.0-32.0); CALCIUM 6.4 MG/DL (8.5-10.1)
[2017-12-07 05:30] LABS: INTERNATIONAL NORMALIZED RATIO 1.2 RATIO
[2017-12-07 05:40] LABS: CALCIUM-PROTEIN CORRECTED 7.7 MG/DL (8.5-10.1); TOTAL PROTEIN 4.5 GM/DL (6.4-8.2)
--- NOTE | 2017-12-07 06:16 | PD.CONS ---
[facility] Service Critical Care Medicine Consult Requested By Dr. Anna Reason for Consult Critical care management post op following aortobifemoral bypass [facility] of Present Illness 77 yo WM with PMH HTN, PAD who was experiencing rest claudication due to severe stenosis bilateral common femoral artery stenosis. He underwent aortobifemoral bypass and left femoral popliteal bypass by Dr. Anna. He had postoperative hypotension and was placed on aggressive IVF resuscitation and neosynephrine. Despite fluid resuscitation, nurse has not been able to wean neosynephrine below 60 mcg/min. He denies chest pain or SOB. Intraoperatively patient received 5300 crystalloid, EBL was 1200, urine output 650. Preoperative hemoglobin was 13.3. Hemoglobin is now 9.1 Review of Systems Constitutional: DENIES: Fever Endocrine: DENIES: Heat/cold intolerance Ears, nose, mouth, throat: COMPLAINS OF: Hoarseness (constant for several months. ) Respiratory: DENIES: Shortness of breath Cardiovascular: DENIES: Chest pain Gastrointestinal: DENIES: Abdominal pain, Nausea, Vomiting Integumentary: DENIES: Rash Neurologic: DENIES: Headache Psychiatric: DENIES: Confusion Past Family Social History Allergies: Coded Allergies: No Known Allergies (Unverified , 12/04/17) Past Medical History Coronary artery disease with prior myocardial infarction 2002 with stents Hypertension Hyperlipidemia BPH Peripheral arterial disease Past Surgical History Toe surgery Reported Medications Atorvastatin Folic acid Lisinopril Metoprolol Neck Giang in Aspirin Family History Patient denies significant medical history Social History Quit smoking "years ago". States he smoked a pack of cigarettes per day for 30 years States he occasionally has a drink in the evening Denies illicit drug use Physical Exam Vital Signs Vital Signs Date Time Temp Pulse Resp B/P (MAP) Pulse Ox O2 Delivery O2 Flow Rate FiO2 12/07/17 03:00 97.9 72 20 104/54 (71) 99 104/37 (59) 12/07/17 03:00 74 103/39 12/07/17 00:00 66 104/44 12/06/17 23:00 98.5 76 18 102/54 (70) 100 106/45 (65) 12/06/17 23:00 76 106/45 12/06/17 22:58 99 Nasal Cannula 3.00 12/06/17 22:30 66 20 103/55 (71) 100 Nasal Cannula 2 99/48 (65) 12/06/17 21:30 66 20 102/56 (71) 100 Nasal Cannula 2 99/48 (65) 12/06/17 21:15 68 20 90/54 (66) 100 Nasal Cannula 2 92/48 (63) 12/06/17 21:00 74 20 93/61 (72) 100 89/56 (67) 12/06/17 20:45 74 20 93/53 (66) 100 90/40 (57) 12/06/17 20:30 70 20 101/52 (68) 100 97/41 (59) 12/06/17 20:15 64 20 107/52 (70) 100 94/40 (58) 12/06/17 20:00 70 20 83/50 (61) 96 80/45 (57) 12/06/17 19:45 72 20 92/53 (66) 98 86/53 (64) 12/06/17 19:30 65 20 84/50 (61) 95 73/40 (51) 12/06/17 19:26 67 78/40 12/06/17 19:15 79 20 116/56 (76) 98 97/44 (61) 12/06/17 19:15 79 97/44 12/06/17 19:00 97.6 65 20 112/54 (73) 97 Nasal Cannula 4 105/50 (68) Automatic Cuff 12/06/17 08:00 98.2 67 16 148/63 (91) 97 Physical Exam GENERAL: Well-nourished, well-developed patient who is alert and interactive sitting up into the ICU bed on nasal cannula. SKIN: Warm and dry, well perfused. HEAD: Atraumatic. Normocephalic. EYES: Pupils equal and round. No scleral icterus. No injection or drainage. ENT: No nasal bleeding or discharge. Mucous membranes pink and moist. Patient' s voice is hoarse which she states is chronic following prior intubation. NECK: Trachea midline. No JVD. CARDIOVASCULAR: Regular rate and rhythm. No murmurs rubs or gallops. RESPIRATORY: No accessory muscle use. Clear to auscultation. Breath sounds equal bilaterally. On nasal cannula. GASTROINTESTINAL: Abdomen soft, non-tender, nondistended. Midline dressing is in place with slight blood staining. Dressing is in place and bilateral quadrants with no significant palpable hematoma and no blood staining. : Parikh in place with yellow urine output. MUSCULOSKELETAL: Extremities without clubbing, cyanosis, or edema. No obvious deformities. DP palpable bilaterally, feet are warm. GRANTS DIRECTOR dopplerable bilaterally. NEUROLOGICAL: Awake and alert. No obvious cranial nerve deficits. Motor grossly within normal limits.Normal speech. Laboratory Laboratory Tests Test 12/06/17 16:00 12/06/17 16:46 12/07/17 04:30 Blood Gas Puncture Site DRAWN IN OR Blood Gas Patient Temperature 98.6 Blood Gas HCO3 21 Blood Gas Base Excess -4.1 Blood Gas Oxygen Saturation 97 Arterial Blood pH 7.30 Arterial Blood Partial Pressure CO2 45 Arterial Blood Partial Pressure O2 256 Arterial Blood Oxygen Content 15.0 Arterial Blood Carboxyhemoglobin 0.9 Arterial Blood Methemoglobin 1.2 Blood Gas Hemoglobin 10.5 Oxygen Delivery Device OR Blood Gas Ventilator Setting OR Blood Gas Inspired Oxygen 60 Hemoglobin 10.6 9.1 Hematocrit 30.9 26.5 White Blood Count 10.8 Red Blood Count 2.55 Mean Corpuscular Volume 104.2 Mean Corpuscular Hemoglobin 35.8 Mean Corpuscular Hemoglobin Concent 34.4 Red Cell Distribution Width 12.9 Platelet Count 114 Mean Platelet Volume 9.6 Neutrophils (%) (Auto) 87.4 Lymphocytes (%) (Auto) 4.4 Monocytes (%) (Auto) 7.9 Eosinophils (%) (Auto) 0.0 Basophils (%) (Auto) 0.3 Neutrophils # (Auto) 9.4 Lymphocytes # (Auto) 0.5 Monocytes # (Auto) 0.9 Eosinophils # (Auto) 0.0 Basophils # (Auto) 0.0 CBC Comment DIFF FINAL Differential Comment Prothrombin Time 12.0 Prothromb Time International Ratio 1.2 Blood Urea Nitrogen 9 Creatinine 1.00 Random Glucose 145 Total Protein 4.5 Calcium Level 6.4 Sodium Level 141 Potassium Level 4.3 Chloride Level 110 Carbon Dioxide Level 20.8 Anion Gap 10 Estimat Glomerular Filtration Rate 73 Protein Corrected Calcium 7.7 Result Diagram: 12/07/1742912/07/17429 Assessment and Plan Problem List: (1) PAD (peripheral artery disease) ICD Code: I73.9 - Peripheral vascular disease, unspecified Status: Chronic (2) HTN (hypertension) ICD Code: I10 - Essential (primary) hypertension Status: Chronic (3) CAD S/P percutaneous coronary angioplasty ICD Code: I25.10 - Atherosclerotic heart disease of [place] coronary artery without angina pectoris; Z98.61 - Coronary angioplasty status Status: Chronic (4) HLD (hyperlipidemia) ICD Code: E78.5 - Hyperlipidemia, unspecified Status: Chronic (5) History of tobacco abuse ICD Code: Z87.891 - Personal history of nicotine dependence Status: Chronic (6) BPH (benign prostatic hyperplasia) ICD Code: N40.0 - Benign prostatic hyperplasia without lower urinary tract symptoms Status: Chronic (7) Hypocalcemia ICD Code: E83.51 - Hypocalcemia Status: Acute (8) Acute blood loss anemia ICD Code: D62 - Acute posthemorrhagic anemia Status: Acute (9) Claudication ICD Code: I73.9 - Peripheral vascular disease, unspecified Status: Chronic Permanent Comment: with acute rest pain Last Edited By: Junie Montiel on Dec 03:52 (10) S/P femoral-popliteal bypass surgery ICD Code: Z95.828 - Presence of other vascular implants and grafts Status: Acute (11) Postoperative hypotension ICD Code: I95.89 - Other hypotension Status: Acute Assessment and Plan NEURO: Lortab as needed for pain RESP: Prior history of tobacco abuse NC Wean as tolerated.Incentive spirometry. CV: Coronary artery disease with prior stents 2002 Hypertension Hyperlipidemia Peripheral arterial disease Rest claudication, now status post aortobifemoral bypass 12/[address] Anna. Postoperative hypotension - secondary to hypovolemia Patient did have significant intraoperative blood loss and now has received fluid resuscitation with 5300 intraoperatively and LR 200/hr overnight. No e/o abdominal compartment syndrome. He remains on neosynephrine. Echo 12/04 with EF 45-50%. Plan to perform bedside cardiac ultrasound to assist with evaluating volume status and consider transition to levophed if there is evidence of neosynephrine worsening afterload and perpetuating hypotension. Replace calcium as per below. Trend cardiac markers. Aspirin 325 mg by mouth daily Hold lisinopril 40 mg by mouth daily and metoprolol 50 mg by mouth twice a day due to hypotension. Hold terazosin 20 mg by mouth daily at bedtime GI: NG tube in place with diet advancement per surgery. FEN/RENAL: Hypocalcemia BPH Parikh in place. Urine output is adequate. Monitor intake and output. Monitor lites lites and replace as indicated. Replace calcium Hold Giang in as per above ID: Perioperative cefazolin and Flagyl per Dr. Anna. HEME: Acute blood loss anemia Monitor hemoglobin and transfuse as needed for hemoglobin less than 8 ENDO: Mild stress hyperglycemia. Monitor and initiate low-dose insulin sliding scale as indicated. PROPH: Lovenox 40 mg subcutaneous for DVT prophylaxis. Protonix for stress ulcer prophylaxis. ACCESS: Right IJ introducer and central venous line placed in OR 12/06/17 #[address] Anna, patient and bedside RN. Discussed with Dr. Alejandro who will followup patient during day shift 12/07. Level III consult Junie Montiel MD Dec 07, 2017 06:16
[2017-12-07] MEDS ORDERED: CALCIUM GLUCONATE INJ 3 GM in SODIUM CHLORIDE 0.9% INJ 100 ML IV ONE (09:00)
[2017-12-07] MEDS: DOCUSATE SODIUM 100 MG CAP PO SCH ×2 (09:10→21:22)
[2017-12-07] MEDS: ASPIRIN 325 MG TAB PO SCH (09:10)
[2017-12-07] MEDS: PHENYLEPHRINE 40 MG in D5W 500 ML IV PRN (09:12)
[2017-12-07 09:36] LABS: TROPONIN I 0.03 NG/ML (0.02-0.05)
[2017-12-07] MEDS ORDERED: ALBUMIN 5% INJ 500 ML IV ONE (11:00)
[2017-12-07] MEDS ORDERED: TERBUTALINE INJ 1 MG/ML AMP SQ PRN (11:15)
[2017-12-07] MEDS: SODIUM CHLORIDE 0.9% FLUSH 10 ML FLUSH IV FLUSH SCH ×2 (11:25→21:22)
[2017-12-07] MEDS: CLOPIDOGREL 75 MG TAB PO SCH (12:00)
[2017-12-07] MEDS: ENOXAPARIN SODIUM 40 MG/0.4 ML SYRINGE SQ SCH (12:00)
[2017-12-07] MEDS: NOREPINEPHRINE INJ 4 MG in SODIUM CHLOR 0.9% 250 ML INJ 246 ML IV PRN (12:58)
[2017-12-07] MEDS: ONDANSETRON HCL 4 MG/2 ML VIAL IV PUSH PRN ×2 (13:21→21:31)
[2017-12-07] MEDS: fentaNYL 25 MCG/HR PATCH T-DERMAL SCH (13:25)
[2017-12-07 14:14] LABS: TROPONIN I 0.02 NG/ML (0.02-0.05)
--- NOTE | 2017-12-07 14:55 | PD.CAR.PN ---
CVT Progress Note Subjective/Hospital Course: 12/05/2017 As above noted in the H&P this patient has severe diffuse peripheral vascular disease with claudication at rest Patient has near total occlusion of common iliac arteries and then occlusion of the external iliac artery more distally with severe common femoral near occlusive disease and multilevel stenosis of both SFAs in the range of 90% Proximal popliteal arteries are equally diseased and trifurcations are stenosed in both legs Dominant vessel to left and right foot is anterior tibial artery and rest of the vessels are bits and pieces segmented throughout Patient needs aortobifemoral bypass and essentially bilateral femoral-popliteal bypass but his left leg is more symptomatic even at rest Patient will undergo aortobifemoral bypass and possibly left femoral-popliteal bypass tomorrow There is a small chance that aorta will be so calcified that it would be hard to enter. At that point we would convert to axillobifemoral bypass Discussed with patient at length the benefits and the risks of the procedure 12/07/2017 Patient is status post aortobifemoral bypass and left femoral-popliteal bypass with endarterectomy of the aorta and external iliac/common femoral arteries Patient is extubated since yesterday awake alert and oriented Pain appears to be well controlled Hemodynamically patient is stable requiring small amount of Levophed Abdomen soft few bowel sounds incision is clean and dry Groins are clean dry patient has excellent distal dopplerable pulses in feet are warm We will continue IV hydration n.p.o. status except for medication and general support Would keep patient on bedrest for at least another day considering the extent of surgery his age and comorbidities Doing very well at this time Glove Wrapper help greatly appreciated Objective: Vital Signs Date Time Temp Pulse Resp B/P (MAP) Pulse Ox O2 Delivery O2 Flow Rate FiO2 12/07/17 12:58 99 114/45 12/07/17 11:00 99 Nasal Cannula 3.00 12/07/17 11:00 97.9 89 20 112/53 (72) 99 97/53 (68) 12/07/17 09:12 83 116/47 12/07/17 08:14 91 Nasal Cannula 3.00 12/07/17 07:00 99 Nasal Cannula 3.00 12/07/17 07:00 97.9 90 18 140/56 (84) 99 126/49 (74) 12/07/17 03:00 97.9 72 20 104/54 (71) 99 104/37 (59) 12/07/17 03:00 74 103/39 12/07/17 00:00 66 104/44 12/06/17 23:00 98.5 76 18 102/54 (70) 100 106/45 (65) 12/06/17 23:00 76 106/45 12/06/17 22:58 99 Nasal Cannula 3.00 12/06/17 22:30 66 20 103/55 (71) 100 Nasal Cannula 2 99/48 (65) 12/06/17 21:30 66 20 102/56 (71) 100 Nasal Cannula 2 99/48 (65) 12/06/17 21:15 68 20 90/54 (66) 100 Nasal Cannula 2 92/48 (63) 12/06/17 21:00 74 20 93/61 (72) 100 89/56 (67) 12/06/17 20:45 74 20 93/53 (66) 100 90/40 (57) 12/06/17 20:30 70 20 101/52 (68) 100 97/41 (59) 12/06/17 20:15 64 20 107/52 (70) 100 94/40 (58) 12/06/17 20:00 70 20 83/50 (61) 96 80/45 (57) 12/06/17 19:45 72 20 92/53 (66) 98 86/53 (64) 12/06/17 19:30 65 20 84/50 (61) 95 73/40 (51) 12/06/17 19:26 67 78/40 12/06/17 19:15 79 20 116/56 (76) 98 97/44 (61) 12/06/17 19:15 79 97/44 12/06/17 19:00 97.6 65 20 112/54 (73) 97 Nasal Cannula 4 105/50 (68) Automatic Cuff Labs: Laboratory Tests Test 12/07/17 04:30 12/07/17 08:32 12/07/17 13:30 White Blood Count 10.8 TH/MM3 (4.0-11.0) Red Blood Count 2.55 MIL/MM3 (4.50-5.90) Hemoglobin 9.1 GM/DL (13.0-17.0) Hematocrit 26.5 % (39.0-51.0) Mean Corpuscular Volume 104.2 FL (80.0-100.0) Mean Corpuscular Hemoglobin 35.8 PG (27.0-34.0) Mean Corpuscular Hemoglobin Concent 34.4 % (32.0-36.0) Red Cell Distribution Width 12.9 % (11.6-17.2) Platelet Count 114 TH/MM3 (150-450) Mean Platelet Volume 9.6 FL (7.0-11.0) Neutrophils (%) (Auto) 87.4 % (16.0-70.0) Lymphocytes (%) (Auto) 4.4 % (9.0-44.0) Monocytes (%) (Auto) 7.9 % (0.0-8.0) Eosinophils (%) (Auto) 0.0 % (0.0-4.0) Basophils (%) (Auto) 0.3 % (0.0-2.0) Neutrophils # (Auto) 9.4 TH/MM3 (1.8-7.7) Lymphocytes # (Auto) 0.5 TH/MM3 (1.0-4.8) Monocytes # (Auto) 0.9 TH/MM3 (0-0.9) Eosinophils # (Auto) 0.0 TH/MM3 (0-0.4) Basophils # (Auto) 0.0 TH/MM3 (0-0.2) CBC Comment DIFF FINAL Differential Comment Prothrombin Time 12.0 SEC (9.8-11.6) Prothromb Time International Ratio 1.2 RATIO Blood Urea Nitrogen 9 MG/DL (7-18) Creatinine 1.00 MG/DL (0.60-1.30) Random Glucose 145 MG/DL (74-106) Total Protein 4.5 GM/DL (6.4-8.2) Calcium Level 6.4 MG/DL (8.5-10.1) Sodium Level 141 MEQ/L (136-145) Potassium Level 4.3 MEQ/L (3.5-5.1) Chloride Level 110 MEQ/L (98-107) Carbon Dioxide Level 20.8 MEQ/L (21.0-32.0) Anion Gap 10 MEQ/L (5-15) Estimat Glomerular Filtration Rate 73 ML/MIN (>89) Protein Corrected Calcium 7.7 MG/DL (8.5-10.1) Total Creatine Kinase 149 U/L (39-308) 163 U/L (39-308) Creatine Kinase MB 3.2 NG/ML (0.5-3.6) 3.8 NG/ML (0.5-3.6) Troponin I 0.03 NG/ML (0.02-0.05) 0.02 NG/ML (0.02-0.05) Random Cortisol 17.0 MCG/DL Result Diagram: 12/07/17 0430 12/07/17 0430 Madi Anna MD Dec 07, 2017 14:55
--- NOTE | 2017-12-07 17:30 | EKG ---
Date Performed: 12/06/2017 Time Performed: 19:57:11 PTAGE: 77 years EKG: Sinus rhythm LOW QRS VOLTAGE IN EXTREMITY LEADS POSSIBLE RIGHT VENTRICULAR CONDUCTION DELAY LATERAL MYOCARDIAL IN FARCTION , PROBABLY OLD INFERIOR MYOCARDIAL INFARCTION , OF INDETERMINATE AGE WITH POSTERIOR EXTENSIO N Since the previous tracing, no significant change noted ABNORMAL ECG PREVIOUS TRACING : 12/04/2017 16.17 DOCTOR: Gene Cárdenas Interpretating Date/Time 12/07/2017 17:28:32
--- NOTE | 2017-12-07 17:43 | MP ---
cc: Madi Anna MD DATE OF OPERATION: 12/06/2017 DATE OF SURGERY: 12/06/2017 PREOPERATIVE DIAGNOSES: Aortoiliac occlusion, bilateral superficial femoral artery occlusions and ischemia of both legs, left more than right; coronary artery disease, congestive heart failure, chronic obstructive pulmonary disease and hypertension. POSTOPERATIVE DIAGNOSES: Aortoiliac occlusion, bilateral superficial femoral artery occlusions and ischemia of both legs, left more than right; coronary artery disease, congestive heart failure, chronic obstructive pulmonary disease and hypertension. PROCEDURE PERFORMED: Aortobifemoral bypass, aortic endarterectomy, bilateral external iliac and common femoral endarterectomy and left femoro-popliteal bypass with PTFE graft. SURGEON: Madi Anna MD ANESTHESIA: General. ESTIMATED BLOOD LOSS: About 1000 mL with Cell Saver. No transfusion of PRBCs, other than cell saved blood. DESCRIPTION OF PROCEDURE: The patient was prepped and draped in usual fashion. The right and left groins are opened. Common femoral, deep femoral and superficial femoral arteries are isolated and vessel loops placed around each. The patient has massively calcified vessels. They feel like lead pipes and there is barely any flow in many of these vessels, but obviously the patient is perfusing the legs. The abdomen is now opened through a midline incision and entered, explored in quadrants. The ascending colon, transverse and descending colon are normal. Sigmoid colon reveals diverticular disease, but no diverticulitis. Small bowel appears to be normal. The liver and spleen are intact. NG tube is in the stomach. Bookwalter retractor is now positioned and small bowel was swept into the right upper quadrant and the abdomen packed off. Incision was made over the peritoneum of the abdominal aorta just from the bifurcation up in the midline, carefully preserving the tissue around it and near it. Several 2-0 Vicryl stick ties were placed to control the oozing of blood as well as lymphatic drainage in the area, which is abundant. The incision was carried upward and at this point I had about 6 inches of the aorta freed up. The entire aorta feels like a rock, very firm and there is one area that has a little less calcifications and this one is chosen to apply the Root clamp on. This part of the aorta is dissected and freed up. The inferior mesenteric artery is visualized and preserved. The Root clamp was to be placed a little lower than the inferior mesenteric artery takeoff. The patient is now prepared by tunneling from the groins into the abdomen the tracts to which the limbs of the graft are going to go through. This is done very carefully with a finger tunneling and then under the cecum on the right side and on the sigmoid on the left side, carefully preserving the ureters and bringing the big goat killer clamp through the groin up and red rubber Robinsons are pulled through the tunnels and left in place to identify the tunnels easier later. The patient is now given 7000 units of heparin. A 14 mm bifurcated graft is now chosen and this one is cut to size under an oblique angle. The straight DeBakeys are now applied to the iliac arteries and then a Root clamp up on the aorta. Vessel is now opened longitudinally with Zarate scissors because of course of Pyle scissors are too fine for this. There is massive amount of atherosclerotic calcific plaque. Some of it is peeled off. There was bleeding noted from the posterior lumbar artery and this one is ligated with some 4-0 Prolene on an RB1 needle. Once everything is freed up, the aorta is endarterectomized in the medial plane using a Smackover dissector and a hemostat and all the calcific plaque removed in order to be even able to sew into this vessel. A graft is now brought into the abdomen and then anastomosis between the aorta and the bifurcated graft was created with 3-0 Prolene on the SH needle in a running stitch. When this was completed, the vascular clamps are removed from the iliac arteries and applied to the graft and then the Root clamp is released. There is one area that is still bleeding and this is controlled with some 4-0 Prolene and pledgets. The area is at the distal end of the anastomosis. This completes this part of the procedure. The limbs of the graft are now brought from the abdomen into the groins and then first the right groin is attended. The profunda clamp is applied and then the Satinsky to the distal external iliac artery. The vessels opened longitudinally with Pyle scissors. The entire vessel essentially is filled up with atherosclerotic material that is hard like a bone. This one is dissected free and removed. The right limb of the graft is now resected with a #11 blade alongside the forceps in an oblique fashion, then sewn on with running 5-0 Prolene, creating an end-to-side anastomosis. Blood flow is released in this leg and it is brisk. The left side is now attended. Same is repeated. The vessels are clamped. The graft is cut to size and then anastomosis was created after the external iliac and common femoral arteries are endarterectomized. Anastomosis is performed with 5-0 Prolene and blood flow reestablished. It is now noted that the right leg pinks up nicely, but in the left leg, there is a weak popliteal pulse and weak posterior tibial, but no dorsalis pedis pulse. This is consistent with preop findings and I was afraid that I would have to do a left fem-pop bypass and that came true. Therefore 8 mm PTFE graft is chosen. A median incision was made at the level at the knee and popliteal artery is isolated. The Weitlaners are placed to visualize the vessels. Proximally popliteal artery is firm; however, distally it is nice and soft. Vessel loops were placed around it and then the 8 mm PTFE is brought from proximal to distal using a Adri-Wick tunneling system. The graft is now cut under an oblique angle distally and then popliteal artery is opened longitudinally. A small profunda clamp is placed proximally. Distally, there is a nice backflow and dilators can be passed easily into the popliteal artery. Anastomosis was created with 5-0 Prolene on BV1 needle and then the clamp was removed from the popliteal artery and applied to the graft proximally. The graft is flushed with heparinized saline and then proximal anastomosis is created between the PTFE graft and a Hemashield aortobifemoral left limb. This was done also with 5-0 Prolene and then blood flow is completely reestablished. At this point, the left foot pinks up and dorsalis pedis and posterior tibial pulses become brisk. The area is irrigated with saline. Abdomen now attended. Meticulous hemostasis obtained in the abdomen and then peritoneum closed over the graft with interrupted 0 Vicryl stitches. At this point, was happy with the blood flow, as well with hemostasis, yet there is a number of bleeding needle hole sites and stitch sites and finally I used some BioGlue to control this. Abdomen is irrigated with copious amounts of saline and closed with #1 PDS loop and ander. The groins and left median knee incision are closed with 0 Vicryl and 4-0 Monocryl. At the end of procedure, the patient has excellent distal pulses. MD SAMIA Perez/KARENA , 02:44 PM , 05:42 PM LAURIE
[2017-12-07] MEDS: ACETAMINOPHEN/HYDROcodone 325 MG/5 MG TAB PO PRN ×2 (17:53→21:42)
[2017-12-07 18:50] LABS: HEMOGLOBIN 7.6 GM/DL (13.0-17.0)
[2017-12-07] MEDS ORDERED: SODIUM CHLOR 0.9% 250 ML INJ 250 ML IV ONE (20:15)
[2017-12-07 20:58] LABS: TROPONIN I 0.02 NG/ML (0.02-0.05)
[2017-12-07] MEDS: TERAZOSIN HCL 5 MG CAP PO SCH (21:21)
[2017-12-07] MEDS: PANTOPRAZOLE SODIUM 40 MG VIAL IV PUSH SCH (21:22)
[2017-12-08] VITALS (8 sets, daily range): BP systolic 89–149; BP diastolic 44–62; PULSE 101–121; RESP 12–20; TEMP 98.2–98.9; O2SAT 94–99
[2017-12-08] MEDS: LACTATED RINGER'S 1000 ML INJ 1,000 ML IV SCH ×3 (00:22→23:40)
[2017-12-08] MEDS: ACETAMINOPHEN/HYDROcodone 325 MG/5 MG TAB PO PRN ×2 (02:47→07:57)
[2017-12-08 04:45] LABS: HEMATOCRIT 24.8 % (39.0-51.0); HEMOGLOBIN 8.7 GM/DL (13.0-17.0); MEAN CELL VOLUME 101.9 FL (80.0-100.0); MEAN CORPUSCULAR HEMOGLOBIN 35.6 PG (27.0-34.0); MEAN CORPUSCULAR HGB CONC 34.9 % (32.0-36.0); PLATELET COUNT 91 TH/MM3 (150-450); RED BLOOD COUNT 2.44 MIL/MM3 (4.50-5.90); RED CELL DISTRIBUTION WIDTH 14.3 % (11.6-17.2); WHITE BLOOD COUNT 6.4 TH/MM3 (4.0-11.0)
[2017-12-08 05:14] LABS: BICARBONATE 25.3 MEQ/L (21.0-32.0); BLOOD UREA NITROGEN 8 MG/DL (7-18); CALCIUM 7.1 MG/DL (8.5-10.1); CHLORIDE 109 MEQ/L (98-107); CREATININE 0.66 MG/DL (0.60-1.30); GLOMERULAR FILTRATION RATE 118 ML/MIN (>89); GLUCOSE,RANDOM 111 MG/DL (74-106); SODIUM (NA) 140 MEQ/L (136-145)
[2017-12-08 05:27] LABS: CALCIUM-PROTEIN CORRECTED 8.5 MG/DL (8.5-10.1); TOTAL PROTEIN 4.5 GM/DL (6.4-8.2)
[2017-12-08 05:33] LABS: TROPONIN I 0.03 NG/ML (0.02-0.05)
[2017-12-08] MEDS ORDERED: HYDROmorphone HCL PF 2 MG/ML VIAL IV PRN ×2 (06:00)
[2017-12-08] MEDS: ASPIRIN 325 MG TAB PO SCH (07:57)
[2017-12-08] MEDS: DOCUSATE SODIUM 100 MG CAP PO SCH ×2 (07:57→21:22)
[2017-12-08] MEDS: CLOPIDOGREL 75 MG TAB PO SCH (07:58)
--- NOTE | 2017-12-08 07:59 | HHI.CCPN ---
Subjective Remarks/Hospital Course 77 yo WM with PMH HTN, PAD who was experiencing rest claudication due to severe stenosis bilateral common femoral artery stenosis. He underwent aortobifemoral bypass and left femoral popliteal bypass by Dr. Anna. He had postoperative hypotension and was placed on aggressive IVF resuscitation and neosynephrine. Despite fluid resuscitation, nurse has not been able to wean neosynephrine below 60 mcg/min. He denies chest pain or SOB. Intraoperatively patient received 5300 crystalloid, EBL was 1200, urine output 650. Preoperative hemoglobin was 13.3. Hemoglobin is now 9.1 Subjective 12/08: Remains on norepinephrine drip at 3 mcg/min. 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 NG tube remains in place with somewhat coffee-ground output. Remains on nasal cannula. Objective Vital Signs Date Time Temp Pulse Resp B/P (MAP) Pulse Ox O2 Delivery O2 Flow Rate FiO2 12/08/17 03:00 102 12/08/17 03:00 95 Nasal Cannula 3.00 12/08/17 03:00 98.2 16 121/58 (79) 107/49 (68) Intake and Output 12/08/17 12/08/17 12/09/17 08:00 16:00 00:00 Intake Total 2158 ml Output Total 1065 ml Balance 1093 ml Result Diagram: 12/08/17 0430 12/08/17 0430 Imaging Last Impressions Chest X-Ray 12/06/17 0000 Signed Impressions: Service Date/Time: Wednesday, December 06, 2017 20:12 - CONCLUSION: Mild compensated cardiomegaly Central line in good position. Nasogastric tube midesophagus Danny Holley MD FACR Abdomen X-Ray 12/06/17 0000 Signed Impressions: Service Date/Time: Wednesday, December 06, 2017 19:07 - CONCLUSION: Surgical clips, no radiopaque surgical clip or needle. Danny Holley MD FACR Aorta w/Runoff CTA 12/04/17 0000 Signed Impressions: Service Date/Time: Monday, December 04, 2017 20:18 - CONCLUSION: Significant aortoiliac disease with inflow stenosis compromising inflow. Poor SFA runoff to the foot on the right. Short segment common femoral occlusion on the left with poor SFA runoff to the foot. Danny Holley MD FACR Objective Remarks GENERAL: 77-year-old male currently resting in bed on nasal cannula in no acute distress SKIN: Warm and dry, well perfused. HEAD: Atraumatic. Normocephalic. EYES: Pupils equal and round. No scleral icterus. No injection or drainage. ENT: No nasal bleeding or discharge. Mucous membranes pink and moist. Patient' s voice is hoarse which she states is chronic following prior intubation. Nasogastrically in left nares NECK: Trachea midline. No JVD. CARDIOVASCULAR: Tachycardic, RR. S1, S3 no strip without murmur RESPIRATORY: No accessory muscle use. Clear to auscultation. Breath sounds equal bilaterally. GASTROINTESTINAL: Abdomen soft, non-tender, nondistended. Elicited some pain with palpation to epigastric region noted. Midline dressing is in place currently clean dry and intact per dressing is in place and bilateral quadrants with no significant palpable hematoma : Parikh in place with yellow urine output. No scrotal edema MUSCULOSKELETAL: Extremities without significant peripheral edema. No obvious deformities. PT dopplerable NEUROLOGICAL: Awake and alert. Voice is hoarse otherwise cranial nerves intact grossly. Strength appears equal symmetric. Normal sensation.. Urinary Catheter: Yes Assessment to: Continue Parikh insert reason: Prolonged Immobilization Vascular Central Line Catheter: Yes Assessment to: Continue Date of Insertion: Dec 06, 2017 Line: Central Venous Catheter Side: Right Location: Internal, Jugular A/P Assessment and Plan NEURO/PSYCH: Acetaminophen 650 mg p.o. every 6 hours as needed fever Hydrocodone/acetaminophen 5/325 1 tablet every 4 hours. Pain 1 through 5 Hydrocodone/acetaminophen 5/325 2 tablets every 4 hours as needed pain 6-10 Hydromorphone 0.5 mg IV every 4 hours as needed breakthrough pain Patient is currently on a fentanyl patch at 25 mcg every 72 hour RESP: Acute respiratory insufficiency History of COPD History of tobaccoism Nasal cannula to maintain saturations greater than equal to 92% Incentive spirometry while awake Chest x-ray revealed cardiomegaly, adequate positioning of right IJ cordis Albuterol/ipratropium aerosols every 6 hours with albuterol aerosols every 2 hours s as needed CV: Postop day #2 Aortobifemoral bypass, aortic endarterectomy, bilateral external iliac and common femoral endarterectomy and left femoral popliteal bypass with PTFE graft secondary to aortoiliac occlusion, bilateral superficial femoral artery occlusions and ischemia of both legs, left more than right; coronary artery disease, congestive heart failure, chronic obstructive pulmonary disease and hypertension. Coronary artery disease with prior stents 2002 Essential hypertension by history Hyperlipidemia Peripheral arterial disease Postoperative hypotension Sinus tachycardia Chronic systolic heart failure Patient did have significant intraoperative blood loss and now has received fluid resuscitation with 5300 intraoperatively 12/06 Currently on LR at 150 cc an hour per primary Echo 12/04 with ejection fraction 45-50% with LV dilatation. Slight diminished LV systolic function Recent stress myocardial stress test revealed fixed defect to the anterior wall of the left ventricle. Aspirin 325 mg by mouth daily and clopidogrel 75 mg daily will be continued Hold lisinopril 40 mg by mouth daily and metoprolol 50 mg by mouth twice a day due to hypotension. Hold terazosin 20 mg by mouth daily at bedtime for BPH with hypotension Holding atorvastatin unknown home dosage daily per primary GI: Gastroesophageal reflux disease Hypoalbuminemia NG tube in place with diet advancement per surgery. Currently n.p.o. Pantoprazole 40 mg IV daily for GI prophylaxis. Patient is on ranitidine 150 mg twice daily at home Docusate sodium 100 mg twice daily for bowel regimen Simethicone 80 mg every 6 hours as needed flatulence FEN/RENAL/: BPH History of vasectomy Maintain Parikh catheter Monitor urine output Accurate I's and O's Replace electrolytes as clinically indicated per ICU electrolyte protocol ID: Perioperative cefazolin and metronidazole per Dr. Anna. Monitor for infection HEME: Macrocytic anemia Thrombocytopenia Monitor CBC daily. Follow trend Does not meet transfusion threshold at this time ENDO: Mild stress hyperglycemia. Sliding-scale insulin with Novulin R with Accu-Cheks every 6 hours to maintain euglycemia Cortisol level was 17 MSK: Posture the right Bedrest per Dr. Anna Physical therapy evaluate and treat PROPH: Enoxaparin 40 mg subcutaneous for DVT prophylaxis. Pantoprazole for stress ulcer prophylaxis. ACCESS: Right IJ introducer and central venous line placed in OR 12/06/17 #3 Level 2 follow-up Truman Hall MD Dec 08, 2017 07:59
[2017-12-08] MEDS ORDERED: ACETAMINOPHEN 325 MG TAB PO PRN (08:00)
[2017-12-08] MEDS ORDERED: SIMETHICONE 80 MG CHEWABLE TAB CHEW PRN (08:00)
[2017-12-08] MEDS: SODIUM CHLORIDE 0.9% FLUSH 10 ML FLUSH IV FLUSH SCH ×2 (08:01→21:00)
[2017-12-08] MEDS ORDERED: SODIUM PHOSPHATE INJ 30 MMOL in SODIUM CHLOR 0.9% 250 ML INJ 240 ML IV PRN (08:15)
[2017-12-08] MEDS ORDERED: GLUCAGON 1 MG/ML VIAL OTHER PRN (08:15)
[2017-12-08] MEDS ORDERED: MAGNESIUM SULFATE INJ 4 GM in SODIUM CHLORIDE 0.9% INJ 92 ML IV PRN (08:15)
[2017-12-08] MEDS ORDERED: MAGNESIUM OXIDE 400 MG TAB PO PRN (08:15)
[2017-12-08] MEDS ORDERED: POTASSIUM CHLOR 20 MEQ PREMIX 100 ML IV PRN (08:15)
[2017-12-08] MEDS ORDERED: POTASSIUM PHOSPHATE MONOBASIC 500 MG TAB PO PRN (08:15)
[2017-12-08] MEDS ORDERED: DEXTROSE 50% IN WATER 50 ML VIAL(D50) IV PUSH PRN (08:15)
[2017-12-08] MEDS ORDERED: POTASSIUM CHLORIDE 25 MEQ EFFERVESCENT TAB PO PRN (08:15)
[2017-12-08] MEDS ORDERED: POTASSIUM CHLOR 40 MEQ PREMIX 100 ML IV PRN (08:15)
[2017-12-08] MEDS ORDERED: POTASSIUM PHOSPHATE INJ 30 MMOL in SODIUM CHLOR 0.9% 250 ML INJ 250 ML IV PRN (08:15)
[2017-12-08] MEDS ORDERED: RESP: ALBUTEROL 2.5 MG/3 ML NEB (PRN) NEB (08:15)
[2017-12-08] MEDS ORDERED: POTASSIUM PHOSPHATE MONOBASIC 500 MG TAB PO/TUBE PRN (08:15)
[2017-12-08] MEDS ORDERED: MAGNESIUM SULFATE INJ 2 GM in SODIUM CHLORIDE 0.9% INJ 96 ML IV PRN (08:15)
[2017-12-08] MEDS: HYDROmorphone HCL PF 2 MG/ML VIAL IV PUSH PRN ×2 (09:07→21:21)
[2017-12-08] MEDS: ENOXAPARIN SODIUM 40 MG/0.4 ML SYRINGE SQ SCH (09:08)
[2017-12-08] MEDS: RESP: ALBUTEROL 2.5 MG/IPRATROPIUM 0.5 MG NEB (SCH) NEB ×3 (09:17→20:11)
[2017-12-08] MEDS ORDERED: FUROSEMIDE 20 MG/2 ML VIAL IV PUSH ONE (10:45)
--- NOTE | 2017-12-08 10:52 | PD.CAR.PN ---
CVT Progress Note Subjective/Hospital Course: 12/05/2017 As above noted in the H&P this patient has severe diffuse peripheral vascular disease with claudication at rest Patient has near total occlusion of common iliac arteries and then occlusion of the external iliac artery more distally with severe common femoral near occlusive disease and multilevel stenosis of both SFAs in the range of 90% Proximal popliteal arteries are equally diseased and trifurcations are stenosed in both legs Dominant vessel to left and right foot is anterior tibial artery and rest of the vessels are bits and pieces segmented throughout Patient needs aortobifemoral bypass and essentially bilateral femoral-popliteal bypass but his left leg is more symptomatic even at rest Patient will undergo aortobifemoral bypass and possibly left femoral-popliteal bypass tomorrow There is a small chance that aorta will be so calcified that it would be hard to enter. At that point we would convert to axillobifemoral bypass Discussed with patient at length the benefits and the risks of the procedure 12/07/2017 Patient is status post aortobifemoral bypass and left femoral-popliteal bypass with endarterectomy of the aorta and external iliac/common femoral arteries Patient is extubated since yesterday awake alert and oriented Pain appears to be well controlled Hemodynamically patient is stable requiring small amount of Levophed Abdomen soft few bowel sounds incision is clean and dry Groins are clean dry patient has excellent distal dopplerable pulses in feet are warm We will continue IV hydration n.p.o. status except for medication and general support Would keep patient on bedrest for at least another day considering the extent of surgery his age and comorbidities Doing very well at this time Steeple Jack help greatly appreciated 12/08/2017 Patient doing very well this morning Awake alert and oriented Abdomen soft incision clean and dry, few bowel sounds Excellent distal pulses in both legs. Feet are warm well perfused good capillary refill Out of bed Patient at this point is fluid overloaded and being third day should start mobilizing third space. We will give Lasix to help along and decrease IV rate to maintenance All things equal patient will be able to leave the unit tomorrow Objective: Vital Signs Date Time Temp Pulse Resp B/P (MAP) Pulse Ox O2 Delivery O2 Flow Rate FiO2 12/08/17 09:19 95 Nasal Cannula 3.00 12/08/17 07:00 95 Nasal Cannula 3.00 12/08/17 07:00 116 12/08/17 07:00 98.8 116 12 135/62 (86) 95 111/48 (69) 12/08/17 03:00 102 12/08/17 03:00 95 Nasal Cannula 3.00 12/08/17 03:00 98.2 105 16 121/58 (79) 95 107/49 (68) 12/07/17 23:00 95 Nasal Cannula 3.00 12/07/17 23:00 98.2 100 16 112/51 (71) 95 107/45 (65) 12/07/17 23:00 102 12/07/17 21:45 98.0 97 18 116/45 95 12/07/17 21:17 97.9 101 16 136/48 97 12/07/17 19:00 97 Nasal Cannula 3.00 12/07/17 19:00 107 12/07/17 19:00 97.9 114 18 105/44 (64) 97 124/56 (78) 12/07/17 15:00 97 Nasal Cannula 3.00 12/07/17 15:00 101 12/07/17 15:00 98.5 101 20 147/58 (87) 97 111/45 (67) 12/07/17 12:58 99 114/45 12/07/17 11:00 89 12/07/17 11:00 99 Nasal Cannula 3.00 12/07/17 11:00 97.9 89 20 112/53 (72) 99 97/53 (68) Labs: Laboratory Tests Test 12/08/17 04:30 White Blood Count 6.4 TH/MM3 (4.0-11.0) Red Blood Count 2.44 MIL/MM3 (4.50-5.90) Hemoglobin 8.7 GM/DL (13.0-17.0) Hematocrit 24.8 % (39.0-51.0) Mean Corpuscular Volume 101.9 FL (80.0-100.0) Mean Corpuscular Hemoglobin 35.6 PG (27.0-34.0) Mean Corpuscular Hemoglobin Concent 34.9 % (32.0-36.0) Red Cell Distribution Width 14.3 % (11.6-17.2) Platelet Count 91 TH/MM3 (150-450) Mean Platelet Volume 9.0 FL (7.0-11.0) Blood Urea Nitrogen 8 MG/DL (7-18) Creatinine 0.66 MG/DL (0.60-1.30) Random Glucose 111 MG/DL (74-106) Total Protein 4.5 GM/DL (6.4-8.2) Calcium Level 7.1 MG/DL (8.5-10.1) Sodium Level 140 MEQ/L (136-145) Potassium Level 3.7 MEQ/L (3.5-5.1) Chloride Level 109 MEQ/L (98-107) Carbon Dioxide Level 25.3 MEQ/L (21.0-32.0) Anion Gap 6 MEQ/L (5-15) Estimat Glomerular Filtration Rate 118 ML/MIN (>89) Protein Corrected Calcium 8.5 MG/DL (8.5-10.1) Total Creatine Kinase 187 U/L (39-308) Creatine Kinase MB 3.0 NG/ML (0.5-3.6) Troponin I 0.03 NG/ML (0.02-0.05) Result Diagram: 12/08/17 0430 12/08/17 0430 Madi Anna MD Dec 08, 2017 10:52
[2017-12-08] MEDS: INSULIN NovoLIN REGULAR SUPPLEMENTAL SCALE SQ SCH ×2 (12:00→18:00)
[2017-12-08] MEDS: NOREPINEPHRINE INJ 4 MG in SODIUM CHLOR 0.9% 250 ML INJ 246 ML IV PRN (13:18)
[2017-12-08] MEDS: PANTOPRAZOLE SODIUM 40 MG VIAL IV PUSH SCH (21:22)
[2017-12-09] VITALS (13 sets, daily range): BP systolic 93–151; BP diastolic 45–81; PULSE 104–127; RESP 18–24; TEMP 98.4–99.1; O2SAT 93–99
[2017-12-09] MEDS: RESP: ALBUTEROL 2.5 MG/IPRATROPIUM 0.5 MG NEB (SCH) NEB ×4 (03:37→21:53)
[2017-12-09] MEDS: HYDROmorphone HCL PF 2 MG/ML VIAL IV PUSH PRN ×2 (04:09→21:21)
[2017-12-09] MEDS: ACETAMINOPHEN/HYDROcodone 325 MG/10 MG TAB PO PRN ×2 (04:16→11:10)
[2017-12-09 04:58] LABS: AUTOMATED NEUTROPHIL # 5.1 TH/MM3 (1.8-7.7); BASOPHIL % 0.4 % (0.0-2.0); EOSINOPHIL % 0.4 % (0.0-4.0); HEMATOCRIT 25.9 % (39.0-51.0); HEMOGLOBIN 8.9 GM/DL (13.0-17.0); LYMPH % 8.8 % (9.0-44.0); LYMPHOCYTE # 0.6 TH/MM3 (1.0-4.8); MEAN CELL VOLUME 103.2 FL (80.0-100.0); MEAN CORPUSCULAR HEMOGLOBIN 35.3 PG (27.0-34.0); MEAN CORPUSCULAR HGB CONC 34.2 % (32.0-36.0); MEAN PLATELET VOLUME 9.4 FL (7.0-11.0); MONO % 11.8 % (0.0-8.0); MONOCYTE # 0.8 TH/MM3 (0-0.9); NEUT % 78.6 % (16.0-70.0); PLATELET COUNT 95 TH/MM3 (150-450); RED BLOOD COUNT 2.51 MIL/MM3 (4.50-5.90); RED CELL DISTRIBUTION WIDTH 14.1 % (11.6-17.2); WHITE BLOOD COUNT 6.5 TH/MM3 (4.0-11.0)
--- NOTE | 2017-12-09 05:15 | RADRPT ---
EXAM DATE/TIME: 12/09/2017 04:17 [facility] COMPARISON: CHEST SINGLE AP, December 06, 2017, 20:40. INDICATIONS : Shortness of breath,possible pulmonary disease. MEDICAL HISTORY : None. SURGICAL HISTORY : None. ENCOUNTER: Subsequent ACUITY: 4 - 6 days PAIN SCORE: Non-responsive. LOCATION: Bilateral chest FINDINGS: A single view of the chest demonstrates bibasilar parenchymal densities. Right apical density likely scarring. Nasogastric tube removed. Right jugular central line stable in position. Heart mildly enlar ged. Osseous structures are intact. CONCLUSION: Slight worsening bibasilar densities. Tomer Short MD on December 09, 2017 at 5:12 Board Certified Radiologist. This report was verified electronically.
[2017-12-09 05:22] LABS: ALBUMIN 2.2 GM/DL (3.4-5.0); BICARBONATE 25.2 MEQ/L (21.0-32.0); CALCIUM 7.3 MG/DL (8.5-10.1); CALCIUM-PROTEIN CORRECTED 8.7 MG/DL (8.5-10.1); CREATININE 0.66 MG/DL (0.60-1.30); MAGNESIUM 1.7 MG/DL (1.5-2.5); PHOSPHORUS 1.8 MG/DL (2.5-4.9); TOTAL BILIRUBIN ADULT 0.7 MG/DL (0.2-1.0); TOTAL PROTEIN 4.7 GM/DL (6.4-8.2)
[2017-12-09] MEDS: INSULIN NovoLIN REGULAR SUPPLEMENTAL SCALE SQ SCH ×5 (06:00→20:45)
[2017-12-09 07:41] LABS: BANDS 12 % (0-6); LYMPHOCYTES 6 % (9-44); MONOCYTES 7 % (0-8); NEUTROPHIL # MANUAL DIFF 5.7 TH/MM3 (1.8-7.7); POLYS (SEG NEUTROPHILS) 75 % (16-70)
[2017-12-09] MEDS: SODIUM CHLORIDE 0.9% FLUSH 10 ML FLUSH IV FLUSH SCH ×2 (08:30→20:45)
[2017-12-09] MEDS: DOCUSATE SODIUM 100 MG CAP PO SCH ×3 (08:36→20:45)
[2017-12-09] MEDS: ASPIRIN 325 MG TAB PO SCH (08:36)
[2017-12-09] MEDS: CLOPIDOGREL 75 MG TAB PO SCH (08:36)
--- NOTE | 2017-12-09 08:41 | HHI.CCPN ---
Subjective Remarks/Hospital Course 77 yo WM with PMH HTN, PAD who was experiencing rest claudication due to severe stenosis bilateral common femoral artery stenosis. He underwent aortobifemoral bypass and left femoral popliteal bypass by Dr. Anna. He had postoperative hypotension and was placed on aggressive IVF resuscitation and neosynephrine. Despite fluid resuscitation, nurse has not been able to wean neosynephrine below 60 mcg/min. He denies chest pain or SOB. Intraoperatively patient received 5300 crystalloid, EBL was 1200, urine output 650. Preoperative hemoglobin was 13.3. Hemoglobin is now 9.1 12/08: Remains on norepinephrine drip at 3 mcg/min. Complaining of epigastric pain overnight/not chest pain or pressure per patient and received hydromorphone per overnight project safety manager. NG tube remains in place with somewhat coffee-ground output. Remains on nasal cannula. Subjective 12/09: Off all vasopressors. Afebrile. Pain is better controlled. Replacing potassium, phosphorus and magnesium this a.m. Continues with dopplerable pulses /extremities are warm. Objective Vital Signs Date Time Temp Pulse Resp B/P (MAP) Pulse Ox O2 Delivery O2 Flow Rate FiO2 12/09/17 07:00 123 12/09/17 07:00 99.1 18 109/56 (73) 99 93/45 (61) 12/09/17 07:00 Nasal Cannula 2.00 Intake and Output 12/09/17 12/09/17 12/10/17 08:00 16:00 00:00 Intake Total 687 ml Output Total 650 ml Balance 37 ml Result Diagram: 12/09/17 0430 12/09/17 0430 Imaging Last Impressions Chest X-Ray 12/09/17 0600 Signed Impressions: Service Date/Time: Saturday, December 09, 2017 04:17 - CONCLUSION: Slight worsening bibasilar densities. Tomer Short MD Abdomen X-Ray 12/06/17 0000 Signed Impressions: Service Date/Time: Wednesday, December 06, 2017 19:07 - CONCLUSION: Surgical clips, no radiopaque surgical clip or needle. Danny Holley MD FACR Aorta w/Runoff CTA 12/04/17 0000 Signed Impressions: Service Date/Time: Monday, December 04, 2017 20:18 - CONCLUSION: Significant aortoiliac disease with inflow stenosis compromising inflow. Poor SFA runoff to the foot on the right. Short segment common femoral occlusion on the left with poor SFA runoff to the foot. Danny Holley MD FACR Objective Remarks GENERAL: 77-year-old male currently resting in bed on nasal cannula in no acute distress SKIN: Warm and dry, well perfused. HEAD: Atraumatic. Normocephalic. EYES: Pupils equal and round. No scleral icterus. No injection or drainage. ENT: No nasal bleeding or discharge. Mucous membranes pink and moist. Patient' s voice is hoarse which she states is chronic following prior intubation. Nasogastrically in left nares NECK: Trachea midline. No JVD. CARDIOVASCULAR: Tachycardic, RR. S1, S3 no strip without murmur RESPIRATORY: No accessory muscle use. Clear to auscultation. Breath sounds equal bilaterally. GASTROINTESTINAL: Abdomen soft, non-tender, nondistended. Elicited some pain with palpation to epigastric region noted. Midline dressing is in place currently clean dry and intact per dressing is in place and bilateral quadrants with no significant palpable hematoma : Parikh in place with yellow urine output. No scrotal edema MUSCULOSKELETAL: Extremities without significant peripheral edema. No obvious deformities. PT dopplerable NEUROLOGICAL: Awake and alert. Voice is hoarse otherwise cranial nerves intact grossly. Strength appears equal symmetric. Normal sensation.. Urinary Catheter: No Assessment to: Continue Vascular Central Line Catheter: Yes Assessment to: Continue Date of Insertion: Dec 06, 2017 Line: Central Venous Catheter Side: Right Location: Internal, Jugular A/P Assessment and Plan NEURO/PSYCH: Acetaminophen 650 mg p.o. every 6 hours as needed fever Hydrocodone/acetaminophen 5/325 1 tablet every 4 hours. Pain 1 through 5 Hydrocodone/acetaminophen 10/325 1 tablet every 4 hours as needed pain 6-10 Hydromorphone 0.5 mg IV every 4 hours as needed breakthrough pain Patient is currently on a fentanyl patch at 25 mcg every 72 hour RESP: Acute respiratory insufficiency History of COPD History of tobaccoism Nasal cannula to maintain saturations greater than equal to 92% Incentive spirometry while awake Chest x-ray revealed cardiomegaly, adequate positioning of right IJ cordis Albuterol/ipratropium aerosols every 6 hours with albuterol aerosols every 2 hours s as needed CV: Postop day #3 Aortobifemoral bypass, aortic endarterectomy, bilateral external iliac and common femoral endarterectomy and left femoral popliteal bypass with PTFE graft secondary to aortoiliac occlusion, bilateral superficial femoral artery occlusions and ischemia of both legs, left more than right; coronary artery disease, congestive heart failure, chronic obstructive pulmonary disease and hypertension. Coronary artery disease with prior stents 2002 Essential hypertension by history Hyperlipidemia Peripheral arterial disease Postoperative hypotension Sinus tachycardia Chronic systolic heart failure Patient did have significant intraoperative blood loss and now has received fluid resuscitation with 5300 intraoperatively 12/06 Currently on LR at 150 cc an hour per primary Echo 12/04 with ejection fraction 45-50% with LV dilatation. Slight diminished LV systolic function Recent stress myocardial stress test revealed fixed defect to the anterior wall of the left ventricle. Aspirin 325 mg by mouth daily and clopidogrel 75 mg daily will be continued Hold lisinopril 40 mg by mouth daily and metoprolol 50 mg by mouth twice a day due to hypotension. Hold terazosin 20 mg by mouth daily at bedtime for BPH with hypotension Holding atorvastatin unknown home dosage daily per primary GI: Gastroesophageal reflux disease Hypoalbuminemia NG tube in place with diet advancement per surgery. Currently n.p.o. Pantoprazole 40 mg IV daily for GI prophylaxis. Patient is on ranitidine 150 mg twice daily at home Docusate sodium 100 mg twice daily for bowel regimen with senna 8.8 mg twice daily Simethicone 80 mg every 6 hours as needed flatulence FEN/RENAL/: BPH History of vasectomy Maintain Parikh catheter Monitor urine output Accurate I's and O's Replace electrolytes as clinically indicated per ICU electrolyte protocol ID: Perioperative cefazolin and metronidazole per Dr. Anna has been completed. Monitor for infection HEME: Macrocytic anemia Thrombocytopenia Monitor CBC daily. Follow trend Does not meet transfusion threshold at this time ENDO: Mild stress hyperglycemia. Sliding-scale insulin with Novulin R with Accu-Cheks every 6 hours to maintain euglycemia Cortisol level was 17 MSK: Bedrest per Dr. Anna Physical therapy evaluate and treat PROPH: Enoxaparin 40 mg subcutaneous for DVT prophylaxis. Pantoprazole for stress ulcer prophylaxis. ACCESS: Right IJ introducer and central venous line placed in OR 12/06/17 #4 Level 2 follow-up Truman Hall MD Dec 09, 2017 08:41
[2017-12-09] MEDS ORDERED: POTASSIUM PHOSPHATE INJ 30 MMOL in SODIUM CHLOR 0.9% 250 ML INJ 250 ML IV ONE (09:00)
[2017-12-09] MEDS: MAGNESIUM SULFATE 1 GM PREMIX 100 ML IV SCH ×2 (09:11→09:58)
[2017-12-09] MEDS: SENNOSIDES SYRUP 8.8 MG/5 ML CUP PO SCH ×2 (09:11→20:39)
[2017-12-09 13:10] LABS: MAGNESIUM 2.3 MG/DL (1.5-2.5); PHOSPHORUS 3.3 MG/DL (2.5-4.9)
[2017-12-09] MEDS: ENOXAPARIN SODIUM 40 MG/0.4 ML SYRINGE SQ SCH (13:39)
[2017-12-09] MEDS ORDERED: FUROSEMIDE 20 MG/2 ML VIAL IV PUSH ONE (14:15)
--- NOTE | 2017-12-09 15:14 | PD.CAR.PN ---
CVT Progress Note Subjective/Hospital Course: 12/05/2017 As above noted in the H&P this patient has severe diffuse peripheral vascular disease with claudication at rest Patient has near total occlusion of common iliac arteries and then occlusion of the external iliac artery more distally with severe common femoral near occlusive disease and multilevel stenosis of both SFAs in the range of 90% Proximal popliteal arteries are equally diseased and trifurcations are stenosed in both legs Dominant vessel to left and right foot is anterior tibial artery and rest of the vessels are bits and pieces segmented throughout Patient needs aortobifemoral bypass and essentially bilateral femoral-popliteal bypass but his left leg is more symptomatic even at rest Patient will undergo aortobifemoral bypass and possibly left femoral-popliteal bypass tomorrow There is a small chance that aorta will be so calcified that it would be hard to enter. At that point we would convert to axillobifemoral bypass Discussed with patient at length the benefits and the risks of the procedure 12/07/2017 Patient is status post aortobifemoral bypass and left femoral-popliteal bypass with endarterectomy of the aorta and external iliac/common femoral arteries Patient is extubated since yesterday awake alert and oriented Pain appears to be well controlled Hemodynamically patient is stable requiring small amount of Levophed Abdomen soft few bowel sounds incision is clean and dry Groins are clean dry patient has excellent distal dopplerable pulses in feet are warm We will continue IV hydration n.p.o. status except for medication and general support Would keep patient on bedrest for at least another day considering the extent of surgery his age and comorbidities Doing very well at this time Trucker help greatly appreciated 12/08/2017 Patient doing very well this morning Awake alert and oriented Abdomen soft incision clean and dry, few bowel sounds Excellent distal pulses in both legs. Feet are warm well perfused good capillary refill Out of bed Patient at this point is fluid overloaded and being third day should start mobilizing third space. We will give Lasix to help along and decrease IV rate to maintenance All things equal patient will be able to leave the unit tomorrow 12/09/2017 Patient doing very well Diuresis fair amount of urine and decreased in third space with some volume extracellular contraction Neurologically remains intact Abdomen soft incision clean and dry Bilateral femoral pulses palpable bilateral popliteal by Doppler Ray pedis posterior tibial by Doppler Feet are nice and warm and patient is well-perfused as opposed to before surgery Still remains somewhat hypervolemic but is gradually going to mobilize Plan Out of bed and ambulate Aggressive physical and occupational therapy Transfer to floor Remove arterial line and central line and dismantle the patient of unnecessary equipment We will start on clear liquids Objective: Vital Signs Date Time Temp Pulse Resp B/P (MAP) Pulse Ox O2 Delivery O2 Flow Rate FiO2 12/09/17 12:17 18 12/09/17 12:15 98.6 127 18 124/65 (84) 96 110/53 (72) 12/09/17 12:00 94 Nasal Cannula 2.00 12/09/17 11:59 121 12/09/17 09:06 96 21 12/09/17 07:00 123 12/09/17 07:00 99.1 117 18 109/56 (73) 99 93/45 (61) 12/09/17 07:00 99 Nasal Cannula 2.00 12/09/17 04:39 20 12/09/17 03:00 112 12/09/17 03:00 98 Nasal Cannula 2.00 12/09/17 03:00 98.8 112 20 133/57 (82) 98 151/81 (104) 12/08/17 23:00 95 Nasal Cannula 3.00 12/08/17 23:00 113 12/08/17 23:00 98.9 113 20 128/54 (78) 95 109/44 (65) 12/08/17 20:13 96 Nasal Cannula 3.00 12/08/17 19:00 94 Nasal Cannula 3.00 12/08/17 19:00 98.2 121 20 149/59 (89) 94 141/49 (79) 12/08/17 19:00 121 Labs: Laboratory Tests Test 12/09/17 04:30 12/09/17 12:27 White Blood Count 6.5 TH/MM3 (4.0-11.0) Red Blood Count 2.51 MIL/MM3 (4.50-5.90) Hemoglobin 8.9 GM/DL (13.0-17.0) Hematocrit 25.9 % (39.0-51.0) Mean Corpuscular Volume 103.2 FL (80.0-100.0) Mean Corpuscular Hemoglobin 35.3 PG (27.0-34.0) Mean Corpuscular Hemoglobin Concent 34.2 % (32.0-36.0) Red Cell Distribution Width 14.1 % (11.6-17.2) Platelet Count 95 TH/MM3 (150-450) Mean Platelet Volume 9.4 FL (7.0-11.0) Neutrophils (%) (Auto) 78.6 % (16.0-70.0) Lymphocytes (%) (Auto) 8.8 % (9.0-44.0) Monocytes (%) (Auto) 11.8 % (0.0-8.0) Eosinophils (%) (Auto) 0.4 % (0.0-4.0) Basophils (%) (Auto) 0.4 % (0.0-2.0) Neutrophils # (Auto) 5.1 TH/MM3 (1.8-7.7) Lymphocytes # (Auto) 0.6 TH/MM3 (1.0-4.8) Monocytes # (Auto) 0.8 TH/MM3 (0-0.9) Eosinophils # (Auto) 0.0 TH/MM3 (0-0.4) Basophils # (Auto) 0.0 TH/MM3 (0-0.2) CBC Comment AUTO DIFF Differential Total Cells Counted 100 Neutrophils % (Manual) 75 % (16-70) Band Neutrophils % 12 % (0-6) Lymphocytes % 6 % (9-44) Monocytes % 7 % (0-8) Neutrophils # (Manual) 5.7 TH/MM3 (1.8-7.7) Differential Comment FINAL DIFF MANUAL Platelet Estimate LOW (NORMAL) Platelet Morphology Comment NORMAL (NORMAL) Blood Urea Nitrogen 8 MG/DL (7-18) Creatinine 0.66 MG/DL (0.60-1.30) Random Glucose 113 MG/DL (74-106) Total Protein 4.7 GM/DL (6.4-8.2) Albumin 2.2 GM/DL (3.4-5.0) Calcium Level 7.3 MG/DL (8.5-10.1) Phosphorus Level 1.8 MG/DL (2.5-4.9) 3.3 MG/DL (2.5-4.9) Magnesium Level 1.7 MG/DL (1.5-2.5) 2.3 MG/DL (1.5-2.5) Alkaline Phosphatase 42 U/L (45-117) Aspartate Amino Transf (AST/SGOT) 18 U/L (15-37) Alanine Aminotransferase (ALT/SGPT) 10 U/L (12-78) Total Bilirubin 0.7 MG/DL (0.2-1.0) Sodium Level 141 MEQ/L (136-145) Potassium Level 3.4 MEQ/L (3.5-5.1) Chloride Level 106 MEQ/L (98-107) Carbon Dioxide Level 25.2 MEQ/L (21.0-32.0) Anion Gap 10 MEQ/L (5-15) Estimat Glomerular Filtration Rate 118 ML/MIN (>89) Protein Corrected Calcium 8.7 MG/DL (8.5-10.1) Result Diagram: 12/09/17 0430 12/09/17 0430 Madi Anna MD Dec 09, 2017 15:14
[2017-12-09] MEDS ORDERED: LACTULOSE SYRUP 20 GM/30 ML CUP PO ONE (15:15)
[2017-12-09] MEDS: LACTATED RINGER'S 1000 ML INJ 1,000 ML IV SCH (15:34)
[2017-12-09] MEDS: ONDANSETRON HCL 4 MG/2 ML VIAL IV PUSH PRN (19:06)
[2017-12-09] MEDS: PANTOPRAZOLE SODIUM 40 MG VIAL IV PUSH SCH (20:44)
[2017-12-10] VITALS (25 sets, daily range): BP systolic 96–147; BP diastolic 54–70; PULSE 10–126; RESP 16–20; TEMP 98.2–100.2; O2SAT 93–96
[2017-12-10] MEDS: ACETAMINOPHEN/HYDROcodone 325 MG/10 MG TAB PO PRN ×2 (00:10→10:09)
[2017-12-10] MEDS: ONDANSETRON HCL 4 MG/2 ML VIAL IV PUSH PRN ×3 (00:35→17:15)
[2017-12-10] MEDS: RESP: ALBUTEROL 2.5 MG/IPRATROPIUM 0.5 MG NEB (SCH) NEB ×4 (03:23→21:00)
[2017-12-10 04:54] LABS: HEMATOCRIT 25.3 % (39.0-51.0); HEMOGLOBIN 8.9 GM/DL (13.0-17.0); MEAN CELL VOLUME 102.8 FL (80.0-100.0); MEAN CORPUSCULAR HEMOGLOBIN 36.2 PG (27.0-34.0); MEAN CORPUSCULAR HGB CONC 35.2 % (32.0-36.0); MEAN PLATELET VOLUME 9.3 FL (7.0-11.0); PLATELET COUNT 109 TH/MM3 (150-450); RED BLOOD COUNT 2.46 MIL/MM3 (4.50-5.90); RED CELL DISTRIBUTION WIDTH 13.7 % (11.6-17.2); WHITE BLOOD COUNT 8.9 TH/MM3 (4.0-11.0)
[2017-12-10 05:20] LABS: BICARBONATE 24.3 MEQ/L (21.0-32.0); CALCIUM 7.4 MG/DL (8.5-10.1); CREATININE 0.85 MG/DL (0.60-1.30)
[2017-12-10 05:33] LABS: CALCIUM-PROTEIN CORRECTED 8.6 MG/DL (8.5-10.1)
[2017-12-10] MEDS: INSULIN NovoLIN REGULAR SUPPLEMENTAL SCALE SQ SCH ×4 (08:00→21:00)
[2017-12-10] MEDS: DOCUSATE SODIUM 100 MG CAP PO SCH ×4 (09:00→22:25)
[2017-12-10] MEDS: SODIUM CHLORIDE 0.9% FLUSH 10 ML FLUSH IV FLUSH SCH ×2 (09:00→21:00)
[2017-12-10] MEDS: SENNOSIDES SYRUP 8.8 MG/5 ML CUP PO SCH ×2 (09:00→22:26)
[2017-12-10] MEDS: CLOPIDOGREL 75 MG TAB PO SCH (10:08)
[2017-12-10] MEDS: ASPIRIN 325 MG TAB PO SCH (10:09)
[2017-12-10] MEDS: SODIUM CHLOR 0.9% 1000 ML INJ 1,000 ML IV SCH ×2 (10:45→22:29)
--- NOTE | 2017-12-10 10:49 | PD.CAR.PN ---
CVT Progress Note Subjective/Hospital Course: 12/05/2017 As above noted in the H&P this patient has severe diffuse peripheral vascular disease with claudication at rest Patient has near total occlusion of common iliac arteries and then occlusion of the external iliac artery more distally with severe common femoral near occlusive disease and multilevel stenosis of both SFAs in the range of 90% Proximal popliteal arteries are equally diseased and trifurcations are stenosed in both legs Dominant vessel to left and right foot is anterior tibial artery and rest of the vessels are bits and pieces segmented throughout Patient needs aortobifemoral bypass and essentially bilateral femoral-popliteal bypass but his left leg is more symptomatic even at rest Patient will undergo aortobifemoral bypass and possibly left femoral-popliteal bypass tomorrow There is a small chance that aorta will be so calcified that it would be hard to enter. At that point we would convert to axillobifemoral bypass Discussed with patient at length the benefits and the risks of the procedure 12/07/2017 Patient is status post aortobifemoral bypass and left femoral-popliteal bypass with endarterectomy of the aorta and external iliac/common femoral arteries Patient is extubated since yesterday awake alert and oriented Pain appears to be well controlled Hemodynamically patient is stable requiring small amount of Levophed Abdomen soft few bowel sounds incision is clean and dry Groins are clean dry patient has excellent distal dopplerable pulses in feet are warm We will continue IV hydration n.p.o. status except for medication and general support Would keep patient on bedrest for at least another day considering the extent of surgery his age and comorbidities Doing very well at this time Project Management It Specialist help greatly appreciated 12/08/2017 Patient doing very well this morning Awake alert and oriented Abdomen soft incision clean and dry, few bowel sounds Excellent distal pulses in both legs. Feet are warm well perfused good capillary refill Out of bed Patient at this point is fluid overloaded and being third day should start mobilizing third space. We will give Lasix to help along and decrease IV rate to maintenance All things equal patient will be able to leave the unit tomorrow 12/09/2017 Patient doing very well Diuresis fair amount of urine and decreased in third space with some volume extracellular contraction Neurologically remains intact Abdomen soft incision clean and dry Bilateral femoral pulses palpable bilateral popliteal by Doppler Ray pedis posterior tibial by Doppler Feet are nice and warm and patient is well-perfused as opposed to before surgery Still remains somewhat hypervolemic but is gradually going to mobilize Plan Out of bed and ambulate Aggressive physical and occupational therapy Transfer to floor Remove arterial line and central line and dismantle the patient of unnecessary equipment We will start on clear liquids 12/10/2017 Patient doing well at this time Incision abdomen clean and dry Groin incisions clean and dry excellent bilateral perfusion Abdomen soft some hypoactive bowel sounds still persistent partial ileus Remains on clear liquids and will not advance until patient passes gas and has bowel movement Somewhat nauseous Plan Out of bed patient needs to ambulate more actively Adequate change in pain control Urology consult patient has significant swelling of the scrotum and penile skin obviously to do the dependent portion but this may be interfering with the removal of the Parikh catheter Rehab referral patient will transfer to [facility] as soon as diet is advanced and patient is well Objective: Vital Signs Date Time Temp Pulse Resp B/P (MAP) Pulse Ox O2 Delivery O2 Flow Rate FiO2 12/10/17 08:56 95 21 12/10/17 07:45 94 Nasal Cannula 2.00 12/10/17 07:45 102 12/10/17 07:45 98.8 113 20 102/70 (81) 94 12/10/17 06:00 109 12/10/17 05:00 102 12/10/17 04:00 94 Nasal Cannula 2.00 12/10/17 04:00 100.2 110 18 99/54 (69) 94 12/10/17 04:00 112 12/10/17 03:00 108 12/10/17 02:00 110 12/10/17 01:00 108 12/10/17 00:00 99.2 111 20 96/59 (71) 96 12/10/17 00:00 107 12/10/17 00:00 96 Nasal Cannula 2.00 12/09/17 23:00 112 12/09/17 22:00 112 12/09/17 21:53 96 Nasal Cannula 2.00 12/09/17 21:00 108 12/09/17 20:00 93 Nasal Cannula 2.00 12/09/17 20:00 98.8 112 24 131/61 (84) 93 12/09/17 20:00 112 12/09/17 19:00 104 12/09/17 16:11 118 12/09/17 15:49 93 Room Air 12/09/17 15:47 98.4 118 18 123/63 (83) 93 Arterial Line 12/09/17 12:17 18 12/09/17 12:15 98.6 127 18 124/65 (84) 96 110/53 (72) 12/09/17 12:00 94 Nasal Cannula 2.00 12/09/17 11:59 121 Labs: Laboratory Tests Test 12/10/17 03:50 White Blood Count 8.9 TH/MM3 (4.0-11.0) Red Blood Count 2.46 MIL/MM3 (4.50-5.90) Hemoglobin 8.9 GM/DL (13.0-17.0) Hematocrit 25.3 % (39.0-51.0) Mean Corpuscular Volume 102.8 FL (80.0-100.0) Mean Corpuscular Hemoglobin 36.2 PG (27.0-34.0) Mean Corpuscular Hemoglobin Concent 35.2 % (32.0-36.0) Red Cell Distribution Width 13.7 % (11.6-17.2) Platelet Count 109 TH/MM3 (150-450) Mean Platelet Volume 9.3 FL (7.0-11.0) Blood Urea Nitrogen 13 MG/DL (7-18) Creatinine 0.85 MG/DL (0.60-1.30) Random Glucose 98 MG/DL (74-106) Total Protein 5.0 GM/DL (6.4-8.2) Calcium Level 7.4 MG/DL (8.5-10.1) Sodium Level 139 MEQ/L (136-145) Potassium Level 4.0 MEQ/L (3.5-5.1) Chloride Level 107 MEQ/L (98-107) Carbon Dioxide Level 24.3 MEQ/L (21.0-32.0) Anion Gap 8 MEQ/L (5-15) Estimat Glomerular Filtration Rate 88 ML/MIN (>89) Protein Corrected Calcium 8.6 MG/DL (8.5-10.1) Result Diagram: 12/10/17 0350 12/10/17 0350 Madi Anna MD Dec 10, 2017 10:49
[2017-12-10] MEDS: HYDROmorphone HCL PF 2 MG/ML VIAL IV PUSH PRN (10:51)
[2017-12-10] MEDS: BISACODYL 10 MG SUPP RECTAL SCH (11:56)
[2017-12-10] MEDS: fentaNYL 25 MCG/HR PATCH T-DERMAL SCH (12:02)
[2017-12-10] MEDS: ENOXAPARIN SODIUM 40 MG/0.4 ML SYRINGE SQ SCH (12:04)
--- NOTE | 2017-12-10 15:13 | PD.CONS ---
[facility] Service Urology Consult Requested By Dr. Anna Reason for Consult Penile edema Primary Care Physician [facility] Diagnosis: History of Present Illness Consulted to evaluate this 77-year-old gentleman with history BPH for penile edema. Patient is postop day #4 from undergoing a aorto bifemoral bypass as well as a left-sided femoral popliteal bypass procedure. During his convalescence from the surgery he was noted to have edema of the genitalia thus prompting a urologic evaluation. Patient denies having problems with edema of the genitalia in the past. He reports no problems urinating prior to his present hospitalization. He does have a history of BPH being managed with alpha blockers. Current laboratory studies demonstrate normal BUN and creatinine levels and hypo-albuminemia. Review of Systems Constitutional: DENIES: Fever, Chills Genitourinary: COMPLAINS OF: Testicular Swelling, DENIES: Hematuria, Dysuria, Testicular Pain Musculoskeletal: DENIES: Back pain Except as stated in HPI: all other systems reviewed are Neg Past Family Social History Past Medical History Coronary artery disease Hyperlipidemia BPH Hypertension GERD Osteoarthritis Past Surgical History Status post recent vascular surgery during present admission as outlined above Status post placement of cardiac stents Reported Medications Refer to EMR Allergies: Coded Allergies: No Known Allergies (Unverified , 12/04/17) Active Ordered Medications Refer to EMR Family History Reviewed and noncontributory Social History Refer to EMR Physical Exam Vital Signs Date Time Temp Pulse Resp B/P (MAP) Pulse Ox O2 Delivery O2 Flow Rate FiO2 12/10/17 13:00 110 12/10/17 12:00 110 12/10/17 11:00 100 12/10/17 11:00 98.2 109 20 126/60 (82) 96 12/10/17 11:00 96 Nasal Cannula 2.00 12/10/17 10:00 126 12/10/17 09:00 100 12/10/17 08:56 95 21 12/10/17 08:00 114 12/10/17 07:45 94 Nasal Cannula 2.00 12/10/17 07:45 102 12/10/17 07:45 98.8 113 20 102/70 (81) 94 12/10/17 06:00 109 12/10/17 05:00 102 12/10/17 04:00 94 Nasal Cannula 2.00 12/10/17 04:00 100.2 110 18 99/54 (69) 94 12/10/17 04:00 112 12/10/17 03:00 108 12/10/17 02:00 110 12/10/17 01:00 108 12/10/17 00:00 99.2 111 20 96/59 (71) 96 12/10/17 00:00 107 12/10/17 00:00 96 Nasal Cannula 2.00 12/09/17 23:00 112 12/09/17 22:00 112 12/09/17 21:53 96 Nasal Cannula 2.00 12/09/17 21:00 108 12/09/17 20:00 93 Nasal Cannula 2.00 12/09/17 20:00 98.8 112 24 131/61 (84) 93 12/09/17 20:00 112 12/09/17 19:00 104 12/09/17 16:11 118 12/09/17 15:49 93 Room Air 12/09/17 15:47 98.4 118 18 123/63 (83) 93 Arterial Line Physical Exam GENERAL: This is a well-nourished, well-developed patient, in no apparent distress. SKIN: No rashes, ecchymoses or lesions. Cool and dry. HEAD: Atraumatic. Normocephalic. No temporal or scalp tenderness. EYES: Pupils equal round and reactive. Extraocular motions intact. No scleral icterus. No injection or drainage. ENT: Nose without bleeding, purulent drainage or septal hematoma. Throat without erythema, tonsillar hypertrophy or exudate. Uvula midline. Airway patent. NECK: Trachea midline. No JVD or lymphadenopathy. Supple, nontender, no meningeal signs. GASTROINTESTINAL: Abdomen soft, non-tender, nondistended. No hepato-splenomegaly , or palpable masses. No guarding. GENITOURINARY: Marketed edema noted to penis and scrotal wall. MUSCULOSKELETAL: Bilateral lower extremity pitting edema NEUROLOGICAL: Awake and alert. Cranial nerves II through XII intact. Motor and sensory grossly within normal limits. Five out of 5 muscle strength in all muscle groups. Normal speech. Lab results reviewed: Yes Laboratory Tests Test 12/10/17 03:50 White Blood Count 8.9 Red Blood Count 2.46 Hemoglobin 8.9 Hematocrit 25.3 Mean Corpuscular Volume 102.8 Mean Corpuscular Hemoglobin 36.2 Mean Corpuscular Hemoglobin Concent 35.2 Red Cell Distribution Width 13.7 Platelet Count 109 Mean Platelet Volume 9.3 Blood Urea Nitrogen 13 Creatinine 0.85 Random Glucose 98 Total Protein 5.0 Calcium Level 7.4 Sodium Level 139 Potassium Level 4.0 Chloride Level 107 Carbon Dioxide Level 24.3 Anion Gap 8 Estimat Glomerular Filtration Rate 88 Protein Corrected Calcium 8.6 Result Diagram: 12/10/17 0350 12/10/17 0350 Imaging Last Impressions Chest X-Ray 12/09/17 0600 Signed Impressions: Service Date/Time: Saturday, December 09, 2017 04:17 - CONCLUSION: Slight worsening bibasilar densities. Tomer Short MD Abdomen X-Ray 12/06/17 0000 Signed Impressions: Service Date/Time: Wednesday, December 06, 2017 19:07 - CONCLUSION: Surgical clips, no radiopaque surgical clip or needle. Danny Holley MD FACR Aorta w/Runoff CTA 12/04/17 0000 Signed Impressions: Service Date/Time: Monday, December 04, 2017 20:18 - CONCLUSION: Significant aortoiliac disease with inflow stenosis compromising inflow. Poor SFA runoff to the foot on the right. Short segment common femoral occlusion on the left with poor SFA runoff to the foot. Danny Holley MD FACR Assessment and Plan Assessment and Plan Urologic impression: Edema of the genitalia secondary to a generalized process. Recommendations: 1. Scrotal elevation 2. Treat underlying causes of the generalized edema including hypoalbuminemia 3. Nothing further to add at this time. Jose Reyes MD Dec 10, 2017 15:13
[2017-12-10] MEDS: oxyCODONE/ACETAMINOPHEN 5 MG/325 MG TAB PO PRN (19:26)
[2017-12-10] MEDS: PANTOPRAZOLE SODIUM 40 MG VIAL IV PUSH SCH (22:27)
[2017-12-11] VITALS (31 sets, daily range): BP systolic 131–154; BP diastolic 60–76; PULSE 96–127; RESP 16–22; TEMP 97.3–99.3; O2SAT 92–98
[2017-12-11] MEDS: RESP: ALBUTEROL 2.5 MG/IPRATROPIUM 0.5 MG NEB (SCH) NEB ×4 (03:05→20:20)
[2017-12-11 04:55] LABS: HEMATOCRIT 23.2 % (39.0-51.0); HEMOGLOBIN 7.9 GM/DL (13.0-17.0); MEAN CELL VOLUME 103.5 FL (80.0-100.0); MEAN CORPUSCULAR HEMOGLOBIN 35.4 PG (27.0-34.0); MEAN CORPUSCULAR HGB CONC 34.2 % (32.0-36.0); PLATELET COUNT 137 TH/MM3 (150-450); RED BLOOD COUNT 2.24 MIL/MM3 (4.50-5.90); RED CELL DISTRIBUTION WIDTH 13.8 % (11.6-17.2); WHITE BLOOD COUNT 6.8 TH/MM3 (4.0-11.0)
[2017-12-11 05:17] LABS: BICARBONATE 25.5 MEQ/L (21.0-32.0); CALCIUM 7.5 MG/DL (8.5-10.1); CREATININE 0.82 MG/DL (0.60-1.30)
[2017-12-11] MEDS: SENNOSIDES SYRUP 8.8 MG/5 ML CUP PO SCH ×2 (09:52→21:39)
[2017-12-11] MEDS: CLOPIDOGREL 75 MG TAB PO SCH (09:53)
[2017-12-11] MEDS: ASPIRIN 325 MG TAB PO SCH (09:53)
[2017-12-11] MEDS: oxyCODONE/ACETAMINOPHEN 5 MG/325 MG TAB PO PRN (09:53)
[2017-12-11] MEDS: DOCUSATE SODIUM 100 MG CAP PO SCH ×3 (09:53→21:00)
[2017-12-11] MEDS: SODIUM CHLORIDE 0.9% FLUSH 10 ML FLUSH IV FLUSH SCH ×2 (09:54→21:38)
--- NOTE | 2017-12-11 10:28 | PD.CAR.PN ---
CVT Progress Note Subjective/Hospital Course: 12/05/2017 As above noted in the H&P this patient has severe diffuse peripheral vascular disease with claudication at rest Patient has near total occlusion of common iliac arteries and then occlusion of the external iliac artery more distally with severe common femoral near occlusive disease and multilevel stenosis of both SFAs in the range of 90% Proximal popliteal arteries are equally diseased and trifurcations are stenosed in both legs Dominant vessel to left and right foot is anterior tibial artery and rest of the vessels are bits and pieces segmented throughout Patient needs aortobifemoral bypass and essentially bilateral femoral-popliteal bypass but his left leg is more symptomatic even at rest Patient will undergo aortobifemoral bypass and possibly left femoral-popliteal bypass tomorrow There is a small chance that aorta will be so calcified that it would be hard to enter. At that point we would convert to axillobifemoral bypass Discussed with patient at length the benefits and the risks of the procedure 12/07/2017 Patient is status post aortobifemoral bypass and left femoral-popliteal bypass with endarterectomy of the aorta and external iliac/common femoral arteries Patient is extubated since yesterday awake alert and oriented Pain appears to be well controlled Hemodynamically patient is stable requiring small amount of Levophed Abdomen soft few bowel sounds incision is clean and dry Groins are clean dry patient has excellent distal dopplerable pulses in feet are warm We will continue IV hydration n.p.o. 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 Feet are warm well perfused good capillary refill Out of bed Patient at this point is fluid overloaded and being third day should start mobilizing third space. We will give Lasix to help along and decrease IV rate to maintenance All things equal patient will be able to leave the unit tomorrow 12/09/2017 Patient doing very well Diuresis fair amount of urine and decreased in third space with some volume extracellular contraction Neurologically remains intact Abdomen soft incision clean and dry Bilateral femoral pulses palpable bilateral popliteal by Doppler Ray pedis posterior tibial by Doppler Feet are nice and warm and patient is well-perfused as opposed to before surgery Still remains somewhat hypervolemic but is gradually going to mobilize Plan Out of bed and ambulate Aggressive physical and occupational therapy Transfer to floor Remove arterial line and central line and dismantle the patient of unnecessary equipment We will start on clear liquids 12/10/2017 Patient doing well at this time Incision abdomen clean and dry Groin incisions clean and dry excellent bilateral perfusion Abdomen soft some hypoactive bowel sounds still persistent partial ileus Remains on clear liquids and will not advance until patient passes gas and has bowel movement Somewhat nauseous Plan Out of bed patient needs to ambulate more actively Adequate change in pain control Urology consult patient has significant swelling of the scrotum and penile skin obviously to do the dependent portion but this may be interfering with the removal of the Parikh catheter Rehab [facility] as soon as diet is advanced and patient is well 12/11/2017 Patient doing okay at this time Abdominal groin and leg incisions clean and dry Great pulse in the left femoropopliteal graft and bilateral palpable femoral pulses Bilateral good breath sounds with some crackles over the bases Abdomen is distended and patient has persistent ileus which is not uncommon after large retroperitoneal surgery of the sorts We will reinsert NG tube the patient decompresses for if he throws up he will aspirate and then will have much bigger problem on her hands Medication can still be given through the tube Hemoglobin 7.9, in face of coronary disease will transfuse 1 unit PRBC Patient needs to ambulate and be up and around Patient is probably somewhat fluid overloaded at this point based on clinical indices, generalized edema and lung exam with some crackles over the bases. On the other hand it is very hard to tell from the intake output summaries for these are completely incorrect and unreliable Objective: Vital Signs Date Time Temp Pulse Resp B/P (MAP) Pulse Ox O2 Delivery O2 Flow Rate FiO2 12/11/17 06:00 107 12/11/17 05:00 109 12/11/17 04:00 107 12/11/17 04:00 97.3 107 20 134/63 (86) 92 12/11/17 03:00 93 Room Air 21 12/11/17 03:00 99 12/11/17 02:00 96 12/11/17 01:00 100 12/11/17 00:00 100 12/10/17 23:00 106 12/10/17 23:00 98.9 108 20 122/58 (79) 94 12/10/17 23:00 93 Room Air 21 12/10/17 22:00 114 12/10/17 21:01 93 21 12/10/17 20:00 114 12/10/17 19:00 93 Room Air 21 12/10/17 19:00 116 12/10/17 19:00 98.5 115 20 147/67 (93) 95 12/10/17 18:00 108 12/10/17 17:00 109 12/10/17 16:00 112 12/10/17 15:00 96 Nasal Cannula 2.00 12/10/17 15:00 110 12/10/17 15:00 98.3 111 16 141/64 (89) 95 12/10/17 14:00 109 12/10/17 13:00 110 12/10/17 12:00 110 12/10/17 11:00 100 12/10/17 11:00 98.2 109 20 126/60 (82) 96 12/10/17 11:00 96 Nasal Cannula 2.00 Labs: Laboratory Tests Test 12/11/17 03:19 White Blood Count 6.8 TH/MM3 (4.0-11.0) Red Blood Count 2.24 MIL/MM3 (4.50-5.90) Hemoglobin 7.9 GM/DL (13.0-17.0) Hematocrit 23.2 % (39.0-51.0) Mean Corpuscular Volume 103.5 FL (80.0-100.0) Mean Corpuscular Hemoglobin 35.4 PG (27.0-34.0) Mean Corpuscular Hemoglobin Concent 34.2 % (32.0-36.0) Red Cell Distribution Width 13.8 % (11.6-17.2) Platelet Count 137 TH/MM3 (150-450) Mean Platelet Volume 9.0 FL (7.0-11.0) Blood Urea Nitrogen 18 MG/DL (7-18) Creatinine 0.82 MG/DL (0.60-1.30) Random Glucose 100 MG/DL (74-106) Calcium Level 7.5 MG/DL (8.5-10.1) Sodium Level 140 MEQ/L (136-145) Potassium Level 3.6 MEQ/L (3.5-5.1) Chloride Level 107 MEQ/L (98-107) Carbon Dioxide Level 25.5 MEQ/L (21.0-32.0) Anion Gap 8 MEQ/L (5-15) Estimat Glomerular Filtration Rate 92 ML/MIN (>89) Result Diagram: 12/11/179 12/11/17 0319 Madi Anna MD Dec 11, 2017 10:28
[2017-12-11] MEDS: INSULIN NovoLIN REGULAR SUPPLEMENTAL SCALE SQ SCH ×2 (12:00→21:00)
[2017-12-11] MEDS: ENOXAPARIN SODIUM 40 MG/0.4 ML SYRINGE SQ SCH (12:33)
[2017-12-11] MEDS: FUROSEMIDE 20 MG/2 ML VIAL IV PUSH SCH (12:38)
[2017-12-11] MEDS: HYDROmorphone HCL PF 2 MG/ML VIAL IV PUSH PRN (18:10)
[2017-12-11] MEDS: SODIUM CHLOR 0.9% 1000 ML INJ 1,000 ML IV SCH (21:38)
[2017-12-11] MEDS: PANTOPRAZOLE SODIUM 40 MG VIAL IV PUSH SCH (21:39)
[2017-12-12] VITALS (26 sets, daily range): BP systolic 138–171; BP diastolic 67–98; PULSE 96–125; RESP 19–24; TEMP 97.5–99.6; O2SAT 94–97
[2017-12-12] MEDS: RESP: ALBUTEROL 2.5 MG/IPRATROPIUM 0.5 MG NEB (SCH) NEB ×2 (03:40→08:42)
[2017-12-12] MEDS: HYDROmorphone HCL PF 2 MG/ML VIAL IV PUSH PRN ×2 (04:43→10:09)
[2017-12-12 06:05] LABS: HEMATOCRIT 27.7 % (39.0-51.0); HEMOGLOBIN 9.6 GM/DL (13.0-17.0); MEAN CELL VOLUME 99.5 FL (80.0-100.0); MEAN CORPUSCULAR HEMOGLOBIN 34.4 PG (27.0-34.0); MEAN CORPUSCULAR HGB CONC 34.6 % (32.0-36.0); MEAN PLATELET VOLUME 8.5 FL (7.0-11.0); PLATELET COUNT 174 TH/MM3 (150-450); RED BLOOD COUNT 2.79 MIL/MM3 (4.50-5.90); WHITE BLOOD COUNT 8.3 TH/MM3 (4.0-11.0)
[2017-12-12] MEDS: SODIUM CHLOR 0.9% 1000 ML INJ 1,000 ML IV SCH ×2 (06:34→22:44)
[2017-12-12 06:35] LABS: BICARBONATE 23.5 MEQ/L (21.0-32.0); CALCIUM 7.7 MG/DL (8.5-10.1); CREATININE 0.76 MG/DL (0.60-1.30)
[2017-12-12] MEDS: DOCUSATE SODIUM 100 MG CAP PO SCH ×4 (08:26→22:29)
[2017-12-12] MEDS: FUROSEMIDE 20 MG/2 ML VIAL IV PUSH SCH (08:26)
[2017-12-12] MEDS: SENNOSIDES SYRUP 8.8 MG/5 ML CUP PO SCH ×2 (08:26→22:30)
[2017-12-12] MEDS: SODIUM CHLORIDE 0.9% FLUSH 10 ML FLUSH IV FLUSH SCH ×2 (08:27→22:29)
[2017-12-12] MEDS: CLOPIDOGREL 75 MG TAB PO SCH (08:27)
[2017-12-12] MEDS: ASPIRIN 325 MG TAB PO SCH (08:27)
[2017-12-12] MEDS: fentaNYL 25 MCG/HR PATCH T-DERMAL SCH (12:59)
[2017-12-12] MEDS: ENOXAPARIN SODIUM 40 MG/0.4 ML SYRINGE SQ SCH (13:00)
[2017-12-12] MEDS: REMOVE OLD PATCH T-DERMAL SCH (13:00)
--- NOTE | 2017-12-12 13:28 | PD.CAR.PN ---
CVT Progress Note Subjective/Hospital Course: 12/05/2017 As above noted in the H&P this patient has severe diffuse peripheral vascular disease with claudication at rest Patient has near total occlusion of common iliac arteries and then occlusion of the external iliac artery more distally with severe common femoral near occlusive disease and multilevel stenosis of both SFAs in the range of 90% Proximal popliteal arteries are equally diseased and trifurcations are stenosed in both legs Dominant vessel to left and right foot is anterior tibial artery and rest of the vessels are bits and pieces segmented throughout Patient needs aortobifemoral bypass and essentially bilateral femoral-popliteal bypass but his left leg is more symptomatic even at rest Patient will undergo aortobifemoral bypass and possibly left femoral-popliteal bypass tomorrow There is a small chance that aorta will be so calcified that it would be hard to enter. At that point we would convert to axillobifemoral bypass Discussed with patient at length the benefits and the risks of the procedure 12/07/2017 Patient is status post aortobifemoral bypass and left femoral-popliteal bypass with endarterectomy of the aorta and external iliac/common femoral arteries Patient is extubated since yesterday awake alert and oriented Pain appears to be well controlled Hemodynamically patient is stable requiring small amount of Levophed Abdomen soft few bowel sounds incision is clean and dry Groins are clean dry patient has excellent distal dopplerable pulses in feet are warm We will continue IV hydration n.p.o. 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 Feet are warm well perfused good capillary refill Out of bed Patient at this point is fluid overloaded and being third day should start mobilizing third space. We will give Lasix to help along and decrease IV rate to maintenance All things equal patient will be able to leave the unit tomorrow 12/09/2017 Patient doing very well Diuresis fair amount of urine and decreased in third space with some volume extracellular contraction Neurologically remains intact Abdomen soft incision clean and dry Bilateral femoral pulses palpable bilateral popliteal by Doppler Ray pedis posterior tibial by Doppler Feet are nice and warm and patient is well-perfused as opposed to before surgery Still remains somewhat hypervolemic but is gradually going to mobilize Plan Out of bed and ambulate Aggressive physical and occupational therapy Transfer to floor Remove arterial line and central line and dismantle the patient of unnecessary equipment We will start on clear liquids 12/10/2017 Patient doing well at this time Incision abdomen clean and dry Groin incisions clean and dry excellent bilateral perfusion Abdomen soft some hypoactive bowel sounds still persistent partial ileus Remains on clear liquids and will not advance until patient passes gas and has bowel movement Somewhat nauseous Plan Out of bed patient needs to ambulate more actively Adequate change in pain control Urology consult patient has significant swelling of the scrotum and penile skin obviously to do the dependent portion but this may be interfering with the removal of the Parikh catheter [facility]hab [facility] as diet is advanced and patient is well 12/11/2017 Patient doing okay at this time Abdominal groin and leg incisions clean and dry Great pulse in the left femoropopliteal graft and bilateral palpable femoral pulses Bilateral good breath sounds with some crackles over the bases Abdomen is distended and patient has persistent ileus which is not uncommon after large retroperitoneal surgery of the sorts We will reinsert NG tube the patient decompresses for if he throws up he will aspirate and then will have much bigger problem on her hands Medication can still be given through the tube Hemoglobin 7.9, in face of coronary disease will transfuse 1 unit PRBC Patient needs to ambulate and be up and around Patient is probably somewhat fluid overloaded at this point based on clinical indices, generalized edema and lung exam with some crackles over the bases. On the other hand it is very hard to tell from the intake output summaries for these are completely incorrect and unreliable 12/12/2017 Patient doing better this morning Incisions are clean and dry Excellent distal pulses Patient still has some degree of generalized edema. Abdomen is soft hypoactive bowel sounds somewhat tender on palpation but patient is more complaining by the NG tube and is extremely anxious Persistent postoperative ileus although bowel movement yesterday Had to place an NG tube which drained about a liter over the last 24 hours of green succus entericus We will leave the NG tube until ileus resolves With retroperitoneal surgery ileus is common and only time will fix it Decrease IV rate and place on daily Lasix Objective: Vital Signs Date Time Temp Pulse Resp B/P (MAP) Pulse Ox O2 Delivery O2 Flow Rate FiO2 12/12/17 13:00 115 12/12/17 12:00 109 12/12/17 11:00 103 12/12/17 11:00 99.0 113 20 153/98 (116) 94 12/12/17 10:00 107 12/12/17 09:00 108 12/12/17 08:42 97 21 12/12/17 08:00 104 12/12/17 07:00 97 12/12/17 07:00 98.6 102 19 156/72 (100) 95 12/12/17 06:00 125 12/12/17 05:00 114 12/12/17 04:00 99.1 102 24 138/67 (90) 94 12/12/17 04:00 102 12/12/17 03:00 106 12/12/17 02:00 104 12/12/17 01:00 106 12/12/17 00:00 108 12/12/17 00:00 98.2 108 22 150/68 (95) 96 12/11/17 23:00 110 12/11/17 22:00 120 12/11/17 21:00 114 12/11/17 20:24 97 21 12/11/17 20:00 98.6 120 20 154/72 (99) 93 12/11/17 20:00 120 12/11/17 19:00 114 12/11/17 18:00 121 12/11/17 17:00 114 12/11/17 16:01 127 12/11/17 15:29 99.3 115 20 148/76 96 12/11/17 15:15 99.3 111 22 148/76 (100) 96 12/11/17 15:15 96 Room Air 12/11/17 15:15 110 12/11/17 14:57 98.7 113 20 133/64 95 12/11/17 14:30 99.1 119 22 142/66 98 12/11/17 14:15 99.0 108 16 138/64 97 12/11/17 14:00 118 12/11/17 13:55 98.8 112 20 136/63 95 Labs: Laboratory Tests Test 12/12/17 05:17 White Blood Count 8.3 TH/MM3 (4.0-11.0) Red Blood Count 2.79 MIL/MM3 (4.50-5.90) Hemoglobin 9.6 GM/DL (13.0-17.0) Hematocrit 27.7 % (39.0-51.0) Mean Corpuscular Volume 99.5 FL (80.0-100.0) Mean Corpuscular Hemoglobin 34.4 PG (27.0-34.0) Mean Corpuscular Hemoglobin Concent 34.6 % (32.0-36.0) Red Cell Distribution Width 17.0 % (11.6-17.2) Platelet Count 174 TH/MM3 (150-450) Mean Platelet Volume 8.5 FL (7.0-11.0) Blood Urea Nitrogen 17 MG/DL (7-18) Creatinine 0.76 MG/DL (0.60-1.30) Random Glucose 88 MG/DL (74-106) Calcium Level 7.7 MG/DL (8.5-10.1) Sodium Level 142 MEQ/L (136-145) Potassium Level 3.3 MEQ/L (3.5-5.1) Chloride Level 108 MEQ/L (98-107) Carbon Dioxide Level 23.5 MEQ/L (21.0-32.0) Anion Gap 11 MEQ/L (5-15) Estimat Glomerular Filtration Rate 100 ML/MIN (>89) Result Diagram: 12/12/17 0517 12/12/17 0517 Madi Anna MD Dec 12, 2017 13:28
[2017-12-12] MEDS: ALPRAZolam 0.5 MG TAB PO SCH ×2 (14:26→22:30)
[2017-12-12] MEDS ORDERED: MENTHOL LOZENGE BUCCAL PRN (15:30)
--- NOTE | 2017-12-12 17:11 | RADRPT ---
EXAM DATE/TIME: 12/12/2017 15:46 [place] COMPARISON: ABDOMEN KUB ONLY, December 06, 2017, 19:07. INDICATIONS : Ileus post aaa MEDICAL HISTORY : Cardiovascular disease. Hypertension SURGICAL HISTORY : None. ENCOUNTER: Initial ACUITY: 4 - 6 days PAIN SCORE: 0/10 LOCATION: Bilateral abdomen FINDINGS: Multiple air-filled minimally dilated loops of small bowel and colon are noted suggesting possible po stoperative ileus. Clinical correlation is recommended. A nasogastric has its tip in the stomach. Deg enerative changes and scoliosis of the thoracolumbar spine are noted. CONCLUSION: Multiple air-filled minimally dilated loops of small bowel and colon are noted suggesting possible po stoperative ileus. Clinical correlation is recommended. Carlos Bell MD on December 12, 2017 at 17:07 Board Certified Radiologist. This report was verified electronically.
[2017-12-12] MEDS: PANTOPRAZOLE SODIUM 40 MG VIAL IV PUSH SCH (22:29)
[2017-12-12] MEDS: oxyCODONE/ACETAMINOPHEN 5 MG/325 MG TAB PO PRN (22:30)
[2017-12-13] VITALS (25 sets, daily range): BP systolic 125–155; BP diastolic 65–76; PULSE 96–116; RESP 18–22; TEMP 97.6–98.9; O2SAT 95–99
[2017-12-13 05:25] LABS: HEMOGLOBIN 10.5 GM/DL (13.0-17.0); MEAN CELL VOLUME 98.6 FL (80.0-100.0); MEAN CORPUSCULAR HEMOGLOBIN 33.5 PG (27.0-34.0); MEAN CORPUSCULAR HGB CONC 33.9 % (32.0-36.0); MEAN PLATELET VOLUME 8.3 FL (7.0-11.0); PLATELET COUNT 230 TH/MM3 (150-450); RED BLOOD COUNT 3.14 MIL/MM3 (4.50-5.90); RED CELL DISTRIBUTION WIDTH 16.8 % (11.6-17.2); WHITE BLOOD COUNT 7.2 TH/MM3 (4.0-11.0)
[2017-12-13 05:49] LABS: BICARBONATE 24.7 MEQ/L (21.0-32.0); CALCIUM 8.1 MG/DL (8.5-10.1); CREATININE 0.78 MG/DL (0.60-1.30)
[2017-12-13] MEDS: ALPRAZolam 0.5 MG TAB PO SCH ×3 (05:54→21:11)
[2017-12-13] MEDS: oxyCODONE/ACETAMINOPHEN 5 MG/325 MG TAB PO PRN ×2 (05:54→21:11)
--- NOTE | 2017-12-13 12:09 | PD.CAR.PN ---
CVT Progress Note Subjective/Hospital Course: 12/05/2017 As above noted in the H&P this patient has severe diffuse peripheral vascular disease with claudication at rest Patient has near total occlusion of common iliac arteries and then occlusion of the external iliac artery more distally with severe common femoral near occlusive disease and multilevel stenosis of both SFAs in the range of 90% Proximal popliteal arteries are equally diseased and trifurcations are stenosed in both legs Dominant vessel to left and right foot is anterior tibial artery and rest of the vessels are bits and pieces segmented throughout Patient needs aortobifemoral bypass and essentially bilateral femoral-popliteal bypass but his left leg is more symptomatic even at rest Patient will undergo aortobifemoral bypass and possibly left femoral-popliteal bypass tomorrow There is a small chance that aorta will be so calcified that it would be hard to enter. At that point we would convert to axillobifemoral bypass Discussed with patient at length the benefits and the risks of the procedure 12/07/2017 Patient is status post aortobifemoral bypass and left femoral-popliteal bypass with endarterectomy of the aorta and external iliac/common femoral arteries Patient is extubated since yesterday awake alert and oriented Pain appears to be well controlled Hemodynamically patient is stable requiring small amount of Levophed Abdomen soft few bowel sounds incision is clean and dry Groins are clean dry patient has excellent distal dopplerable pulses in feet are warm We will continue IV hydration n.p.o. 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 Feet are warm well perfused good capillary refill Out of bed Patient at this point is fluid overloaded and being third day should start mobilizing third space. We will give Lasix to help along and decrease IV rate to maintenance All things equal patient will be able to leave the unit tomorrow 12/09/2017 Patient doing very well Diuresis fair amount of urine and decreased in third space with some volume extracellular contraction Neurologically remains intact Abdomen soft incision clean and dry Bilateral femoral pulses palpable bilateral popliteal by Doppler Ray pedis posterior tibial by Doppler Feet are nice and warm and patient is well-perfused as opposed to before surgery Still remains somewhat hypervolemic but is gradually going to mobilize Plan Out of bed and ambulate Aggressive physical and occupational therapy Transfer to floor Remove arterial line and central line and dismantle the patient of unnecessary equipment We will start on clear liquids 12/10/2017 Patient doing well at this time Incision abdomen clean and dry Groin incisions clean and dry excellent bilateral perfusion Abdomen soft some hypoactive bowel sounds still persistent partial ileus Remains on clear liquids and will not advance until patient passes gas and has bowel movement Somewhat nauseous Plan Out of bed patient needs to ambulate more actively Adequate change in pain control Urology consult patient has significant swelling of the scrotum and penile skin obviously to do the dependent portion but this may be interfering with the removal of the Parikh catheter [facility]hab [facility] as diet is advanced and patient is well 12/11/2017 Patient doing okay at this time Abdominal groin and leg incisions clean and dry Great pulse in the left femoropopliteal graft and bilateral palpable femoral pulses Bilateral good breath sounds with some crackles over the bases Abdomen is distended and patient has persistent ileus which is not uncommon after large retroperitoneal surgery of the sorts We will reinsert NG tube the patient decompresses for if he throws up he will aspirate and then will have much bigger problem on her hands Medication can still be given through the tube Hemoglobin 7.9, in face of coronary disease will transfuse 1 unit PRBC Patient needs to ambulate and be up and around Patient is probably somewhat fluid overloaded at this point based on clinical indices, generalized edema and lung exam with some crackles over the bases. On the other hand it is very hard to tell from the intake output summaries for these are completely incorrect and unreliable 12/12/2017 Patient doing better this morning Incisions are clean and dry Excellent distal pulses Patient still has some degree of generalized edema. Abdomen is soft hypoactive bowel sounds somewhat tender on palpation but patient is more complaining by the NG tube and is extremely anxious Persistent postoperative ileus although bowel movement yesterday Had to place an NG tube which drained about a liter over the last 24 hours of green succus entericus We will leave the NG tube until ileus resolves With retroperitoneal surgery ileus is common and only time will fix it Decrease IV rate and place on daily Lasix 12/13/2017 Patient better today Awake alert but somewhat unusual affect very anxious had hallucinations We will be seeing Dilaudid because this might be the culprit and switched to morphine Excellent proximal and distal pulses Incisions are clean and dry abdomen is softer but still moderately distended with very hypoactive bowel sounds consistent with prolonged paralytic ileus in face of extensive abdominal surgery NG tube over a liter in last 24 hours however this is been the cause of problems because of nurses inability to properly manage the NG tube On top of it NG tube somehow "came out" and needs to be reinserted KUB confirms paralytic ileus which is of course combination of surgery and narcotics administration for mobilization of the patient I am also worried about the ileus resolving but I am worried about patient developing atelectasis and eventually pneumonia it is absolutely Critical the patient walks in the choroid hours and have time devoted to him by physical therapy as well as nursing, rather than laying in bed Objective: Vital Signs Date Time Temp Pulse Resp B/P (MAP) Pulse Ox O2 Delivery O2 Flow Rate FiO2 12/13/17 08:05 95 21 12/13/17 08:00 98.4 110 20 95 12/13/17 07:02 18 12/13/17 06:00 108 12/13/17 05:00 108 12/13/17 04:00 96 12/13/17 03:00 98.0 100 18 148/73 (98) 96 12/13/17 03:00 96 12/13/17 02:00 100 12/13/17 01:00 100 12/13/17 00:00 100 12/12/17 23:00 106 12/12/17 23:00 98.4 100 22 157/75 (102) 94 12/12/17 22:00 104 12/12/17 21:00 96 12/12/17 20:00 112 12/12/17 19:35 96 12/12/17 19:00 96 12/12/17 19:00 99.6 107 22 153/74 (100) 94 12/12/17 19:00 18 12/12/17 18:00 105 12/12/17 17:00 103 12/12/17 16:00 110 12/12/17 15:00 97.5 109 21 171/78 (109) 95 12/12/17 15:00 103 12/12/17 14:00 104 12/12/17 14:00 21 12/12/17 13:00 115 Labs: Laboratory Tests Test 12/13/17 04:35 White Blood Count 7.2 TH/MM3 (4.0-11.0) Red Blood Count 3.14 MIL/MM3 (4.50-5.90) Hemoglobin 10.5 GM/DL (13.0-17.0) Hematocrit 31.0 % (39.0-51.0) Mean Corpuscular Volume 98.6 FL (80.0-100.0) Mean Corpuscular Hemoglobin 33.5 PG (27.0-34.0) Mean Corpuscular Hemoglobin Concent 33.9 % (32.0-36.0) Red Cell Distribution Width 16.8 % (11.6-17.2) Platelet Count 230 TH/MM3 (150-450) Mean Platelet Volume 8.3 FL (7.0-11.0) Blood Urea Nitrogen 19 MG/DL (7-18) Creatinine 0.78 MG/DL (0.60-1.30) Random Glucose 88 MG/DL (74-106) Calcium Level 8.1 MG/DL (8.5-10.1) Sodium Level 147 MEQ/L (136-145) Potassium Level 3.4 MEQ/L (3.5-5.1) Chloride Level 111 MEQ/L (98-107) Carbon Dioxide Level 24.7 MEQ/L (21.0-32.0) Anion Gap 11 MEQ/L (5-15) Estimat Glomerular Filtration Rate 97 ML/MIN (>89) Result Diagram: 12/13/17 0435 12/13/17 0435 Madi Anna MD Dec 13, 2017 12:09
[2017-12-13] MEDS: ENOXAPARIN SODIUM 40 MG/0.4 ML SYRINGE SQ SCH (12:11)
[2017-12-13] MEDS: SODIUM CHLORIDE 0.9% FLUSH 10 ML FLUSH IV FLUSH SCH ×2 (12:12→21:11)
[2017-12-13] MEDS: FUROSEMIDE 20 MG/2 ML VIAL IV PUSH SCH (12:12)
[2017-12-13] MEDS: CLOPIDOGREL 75 MG TAB PO SCH (12:27)
[2017-12-13] MEDS: DOCUSATE SODIUM 100 MG CAP PO SCH ×3 (12:28→21:00)
[2017-12-13] MEDS: SENNOSIDES SYRUP 8.8 MG/5 ML CUP PO SCH ×2 (12:37→21:11)
[2017-12-13] MEDS: PANTOPRAZOLE SODIUM 40 MG VIAL IV PUSH SCH (21:11)
[2017-12-14] VITALS (31 sets, daily range): BP systolic 128–157; BP diastolic 64–74; PULSE 96–116; RESP 18–20; TEMP 98–99; O2SAT 94–96
[2017-12-14] MEDS: MORPHINE SULFATE 4 MG/ML INJ IV PUSH PRN (01:51)
[2017-12-14] MEDS: SODIUM CHLOR 0.9% 1000 ML INJ 1,000 ML IV SCH ×2 (01:55→02:45)
[2017-12-14 05:08] LABS: HEMATOCRIT 28.6 % (39.0-51.0); HEMOGLOBIN 9.7 GM/DL (13.0-17.0); MEAN CELL VOLUME 99.7 FL (80.0-100.0); MEAN CORPUSCULAR HEMOGLOBIN 33.9 PG (27.0-34.0); MEAN PLATELET VOLUME 8.1 FL (7.0-11.0); PLATELET COUNT 244 TH/MM3 (150-450); RED BLOOD COUNT 2.87 MIL/MM3 (4.50-5.90); RED CELL DISTRIBUTION WIDTH 16.6 % (11.6-17.2); WHITE BLOOD COUNT 7.1 TH/MM3 (4.0-11.0)
[2017-12-14 05:28] LABS: BICARBONATE 27.4 MEQ/L (21.0-32.0); CALCIUM 7.8 MG/DL (8.5-10.1); CREATININE 0.74 MG/DL (0.60-1.30)
[2017-12-14] MEDS: ALPRAZolam 0.5 MG TAB PO SCH ×3 (06:00→21:08)
[2017-12-14] MEDS: oxyCODONE/ACETAMINOPHEN 5 MG/325 MG TAB PO PRN ×4 (06:00→19:02)
[2017-12-14] MEDS: FUROSEMIDE 20 MG/2 ML VIAL IV PUSH SCH (08:38)
[2017-12-14] MEDS: SENNOSIDES SYRUP 8.8 MG/5 ML CUP PO SCH ×2 (08:38→21:08)
[2017-12-14] MEDS: DOCUSATE SODIUM 100 MG CAP PO SCH ×4 (08:38→21:00)
[2017-12-14] MEDS: BISACODYL 10 MG SUPP RECTAL SCH (08:39)
[2017-12-14] MEDS: SODIUM CHLORIDE 0.9% FLUSH 10 ML FLUSH IV FLUSH SCH ×2 (08:39→21:09)
[2017-12-14] MEDS: CLOPIDOGREL 75 MG TAB PO SCH (08:39)
--- NOTE | 2017-12-14 11:12 | PD.CAR.PN ---
CVT Progress Note Subjective/Hospital Course: 12/05/2017 As above noted in the H&P this patient has severe diffuse peripheral vascular disease with claudication at rest Patient has near total occlusion of common iliac arteries and then occlusion of the external iliac artery more distally with severe common femoral near occlusive disease and multilevel stenosis of both SFAs in the range of 90% Proximal popliteal arteries are equally diseased and trifurcations are stenosed in both legs Dominant vessel to left and right foot is anterior tibial artery and rest of the vessels are bits and pieces segmented throughout Patient needs aortobifemoral bypass and essentially bilateral femoral-popliteal bypass but his left leg is more symptomatic even at rest Patient will undergo aortobifemoral bypass and possibly left femoral-popliteal bypass tomorrow There is a small chance that aorta will be so calcified that it would be hard to enter. At that point we would convert to axillobifemoral bypass Discussed with patient at length the benefits and the risks of the procedure 12/07/2017 Patient is status post aortobifemoral bypass and left femoral-popliteal bypass with endarterectomy of the aorta and external iliac/common femoral arteries Patient is extubated since yesterday awake alert and oriented Pain appears to be well controlled Hemodynamically patient is stable requiring small amount of Levophed Abdomen soft few bowel sounds incision is clean and dry Groins are clean dry patient has excellent distal dopplerable pulses in feet are warm We will continue IV hydration n.p.o. status except for medication and general support Would keep patient on bedrest for at least another day considering the extent of surgery his age and comorbidities Doing very well at this time Transportation Director help greatly appreciated 12/08/2017 Patient doing very well this morning Awake alert and oriented Abdomen soft incision clean and dry, few bowel sounds Excellent distal pulses in both legs. Feet are warm well perfused good capillary refill Out of bed Patient at this point is fluid overloaded and being third day should start mobilizing third space. We will give Lasix to help along and decrease IV rate to maintenance All things equal patient will be able to leave the unit tomorrow 12/09/2017 Patient doing very well Diuresis fair amount of urine and decreased in third space with some volume extracellular contraction Neurologically remains intact Abdomen soft incision clean and dry Bilateral femoral pulses palpable bilateral popliteal by Doppler Ray pedis posterior tibial by Doppler Feet are nice and warm and patient is well-perfused as opposed to before surgery Still remains somewhat hypervolemic but is gradually going to mobilize Plan Out of bed and ambulate Aggressive physical and occupational therapy Transfer to floor Remove arterial line and central line and dismantle the patient of unnecessary equipment We will start on clear liquids 12/10/2017 Patient doing well at this time Incision abdomen clean and dry Groin incisions clean and dry excellent bilateral perfusion Abdomen soft some hypoactive bowel sounds still persistent partial ileus Remains on clear liquids and will not advance until patient passes gas and has bowel movement Somewhat nauseous Plan Out of bed patient needs to ambulate more actively Adequate change in pain control Urology consult patient has significant swelling of the scrotum and penile skin obviously to do the dependent portion but this may be interfering with the removal of the Parikh catheter [facility]hab [facility] as soon as diet is advanced and patient is well 12/11/2017 Patient doing okay at this time Abdominal groin and leg incisions clean and dry Great pulse in the left femoropopliteal graft and bilateral palpable femoral pulses Bilateral good breath sounds with some crackles over the bases Abdomen is distended and patient has persistent ileus which is not uncommon after large retroperitoneal surgery of the sorts We will reinsert NG tube the patient decompresses for if he throws up he will aspirate and then will have much bigger problem on her hands Medication can still be given through the tube Hemoglobin 7.9, in face of coronary disease will transfuse 1 unit PRBC Patient needs to ambulate and be up and around Patient is probably somewhat fluid overloaded at this point based on clinical indices, generalized edema and lung exam with some crackles over the bases. On the other hand it is very hard to tell from the intake output summaries for these are completely incorrect and unreliable 12/12/2017 Patient doing better this morning Incisions are clean and dry Excellent distal pulses Patient still has some degree of generalized edema. Abdomen is soft hypoactive bowel sounds somewhat tender on palpation but patient is more complaining by the NG tube and is extremely anxious Persistent postoperative ileus although bowel movement yesterday Had to place an NG tube which drained about a liter over the last 24 hours of green succus entericus We will leave the NG tube until ileus resolves With retroperitoneal surgery ileus is common and only time will fix it Decrease IV rate and place on daily Lasix 12/13/2017 Patient better today Awake alert but somewhat unusual affect very anxious had hallucinations We will be seeing Dilaudid because this might be the culprit and switched to morphine Excellent proximal and distal pulses Incisions are clean and dry abdomen is softer but still moderately distended with very hypoactive bowel sounds consistent with prolonged paralytic ileus in face of extensive abdominal surgery NG tube over a liter in last 24 hours however this is been the cause of problems because of nurses inability to properly manage the NG tube On top of it NG tube somehow "came out" and needs to be reinserted KUB confirms paralytic ileus which is of course combination of surgery and narcotics administration for mobilization of the patient I am also worried about the ileus resolving but I am worried about patient developing atelectasis and eventually pneumonia it is absolutely Critical the patient walks in the choroid hours and have time devoted to him by physical therapy as well as nursing, rather than laying in bed 12/14/2017 Patient doing much better today He was very confused yesterday but much better today Abdomen soft hypoactive bowel sounds distention definitely decreased Ileus slowly resolving patient passing gas but no bowel movements NG tube about 800 cc over 24 hours We will keep NG tube for another day patient needs to ambulate and be out of bed to prevent pneumonia Probably NG tube will come out tomorrow all things equal Objective: Vital Signs Date Time Temp Pulse Resp B/P (MAP) Pulse Ox O2 Delivery O2 Flow Rate FiO2 12/14/17 10:00 108 12/14/17 09:00 102 12/14/17 08:00 107 12/14/17 07:23 98.6 107 18 157/74 (101) 96 12/14/17 07:00 108 12/14/17 06:13 104 12/14/17 05:15 107 12/14/17 04:00 106 12/14/17 03:31 99.0 104 128/66 (86) 96 12/14/17 03:00 114 12/14/17 02:00 104 12/14/17 01:00 100 12/14/17 00:16 98.5 100 145/69 (94) 96 12/14/17 00:00 98 12/13/17 23:00 100 12/13/17 22:00 112 12/13/17 21:00 102 12/13/17 20:00 112 12/13/17 19:47 99 12/13/17 19:00 106 12/13/17 19:00 97.6 111 155/76 (102) 97 12/13/17 18:08 105 12/13/17 17:00 102 12/13/17 16:00 101 12/13/17 15:30 106 12/13/17 15:30 98.2 106 20 125/65 (85) 98 12/13/17 14:21 108 12/13/17 13:00 102 12/13/17 12:41 98.8 107 22 147/71 (96) 95 Labs: Laboratory Tests Test 12/14/17 04:24 White Blood Count 7.1 TH/MM3 (4.0-11.0) Red Blood Count 2.87 MIL/MM3 (4.50-5.90) Hemoglobin 9.7 GM/DL (13.0-17.0) Hematocrit 28.6 % (39.0-51.0) Mean Corpuscular Volume 99.7 FL (80.0-100.0) Mean Corpuscular Hemoglobin 33.9 PG (27.0-34.0) Mean Corpuscular Hemoglobin Concent 34.0 % (32.0-36.0) Red Cell Distribution Width 16.6 % (11.6-17.2) Platelet Count 244 TH/MM3 (150-450) Mean Platelet Volume 8.1 FL (7.0-11.0) Blood Urea Nitrogen 22 MG/DL (7-18) Creatinine 0.74 MG/DL (0.60-1.30) Random Glucose 83 MG/DL (74-106) Calcium Level 7.8 MG/DL (8.5-10.1) Sodium Level 151 MEQ/L (136-145) Potassium Level 3.1 MEQ/L (3.5-5.1) Chloride Level 113 MEQ/L (98-107) Carbon Dioxide Level 27.4 MEQ/L (21.0-32.0) Anion Gap 11 MEQ/L (5-15) Estimat Glomerular Filtration Rate 103 ML/MIN (>89) Result Diagram: 12/14/17 0424 12/14/17 0424 Madi Anna MD Dec 14, 2017 11:12
[2017-12-14] MEDS: 1/2 NS + KCL 20 MEQ INJ 1,000 ML IV SCH (11:56)
[2017-12-14] MEDS: ENOXAPARIN SODIUM 40 MG/0.4 ML SYRINGE SQ SCH (14:07)
[2017-12-14] MEDS: PANTOPRAZOLE SODIUM 40 MG VIAL IV PUSH SCH (21:08)
[2017-12-15] VITALS (32 sets, daily range): BP systolic 116–164; BP diastolic 65–77; PULSE 96–112; RESP 18–20; TEMP 98–98.8; O2SAT 94–97
[2017-12-15] MEDS: oxyCODONE/ACETAMINOPHEN 5 MG/325 MG TAB PO PRN ×4 (01:33→16:36)
[2017-12-15] MEDS: ALPRAZolam 0.5 MG TAB PO SCH ×2 (06:01→13:10)
--- NOTE | 2017-12-15 07:40 | PD.CAR.PN ---
CVT Progress Note Subjective/Hospital Course: 12/05/2017 As above noted in the H&P this patient has severe diffuse peripheral vascular disease with claudication at rest Patient has near total occlusion of common iliac arteries and then occlusion of the external iliac artery more distally with severe common femoral near occlusive disease and multilevel stenosis of both SFAs in the range of 90% Proximal popliteal arteries are equally diseased and trifurcations are stenosed in both legs Dominant vessel to left and right foot is anterior tibial artery and rest of the vessels are bits and pieces segmented throughout Patient needs aortobifemoral bypass and essentially bilateral femoral-popliteal bypass but his left leg is more symptomatic even at rest Patient will undergo aortobifemoral bypass and possibly left femoral-popliteal bypass tomorrow There is a small chance that aorta will be so calcified that it would be hard to enter. At that point we would convert to axillobifemoral bypass Discussed with patient at length the benefits and the risks of the procedure 12/07/2017 Patient is status post aortobifemoral bypass and left femoral-popliteal bypass with endarterectomy of the aorta and external iliac/common femoral arteries Patient is extubated since yesterday awake alert and oriented Pain appears to be well controlled Hemodynamically patient is stable requiring small amount of Levophed Abdomen soft few bowel sounds incision is clean and dry Groins are clean dry patient has excellent distal dopplerable pulses in feet are warm We will continue IV hydration n.p.o. status except for medication and general support Would keep patient on bedrest for at least another day considering the extent of surgery his age and comorbidities Doing very well at this time Repeat Photocomposing Machine Operator help greatly appreciated 12/08/2017 Patient doing very well this morning Awake alert and oriented Abdomen soft incision clean and dry, few bowel sounds Excellent distal pulses in both legs. Feet are warm well perfused good capillary refill Out of bed Patient at this point is fluid overloaded and being third day should start mobilizing third space. We will give Lasix to help along and decrease IV rate to maintenance All things equal patient will be able to leave the unit tomorrow 12/09/2017 Patient doing very well Diuresis fair amount of urine and decreased in third space with some volume extracellular contraction Neurologically remains intact Abdomen soft incision clean and dry Bilateral femoral pulses palpable bilateral popliteal by Doppler Ray pedis posterior tibial by Doppler Feet are nice and warm and patient is well-perfused as opposed to before surgery Still remains somewhat hypervolemic but is gradually going to mobilize Plan Out of bed and ambulate Aggressive physical and occupational therapy Transfer to floor Remove arterial line and central line and dismantle the patient of unnecessary equipment We will start on clear liquids 12/10/2017 Patient doing well at this time Incision abdomen clean and dry Groin incisions clean and dry excellent bilateral perfusion Abdomen soft some hypoactive bowel sounds still persistent partial ileus Remains on clear liquids and will not advance until patient passes gas and has bowel movement Somewhat nauseous Plan Out of bed patient needs to ambulate more actively Adequate change in pain control Urology consult patient has significant swelling of the scrotum and penile skin obviously to do the dependent portion but this may be interfering with the removal of the Parikh catheter Rehab referral [facility] soon as diet is advanced and patient is well 12/11/2017 Patient doing okay at this time Abdominal groin and leg incisions clean and dry Great pulse in the left femoropopliteal graft and bilateral palpable femoral pulses Bilateral good breath sounds with some crackles over the bases Abdomen is distended and patient has persistent ileus which is not uncommon after large retroperitoneal surgery of the sorts We will reinsert NG tube the patient decompresses for if he throws up he will aspirate and then will have much bigger problem on her hands Medication can still be given through the tube Hemoglobin 7.9, in face of coronary disease will transfuse 1 unit PRBC Patient needs to ambulate and be up and around Patient is probably somewhat fluid overloaded at this point based on clinical indices, generalized edema and lung exam with some crackles over the bases. On the other hand it is very hard to tell from the intake output summaries for these are completely incorrect and unreliable 12/12/2017 Patient doing better this morning Incisions are clean and dry Excellent distal pulses Patient still has some degree of generalized edema. Abdomen is soft hypoactive bowel sounds somewhat tender on palpation but patient is more complaining by the NG tube and is extremely anxious Persistent postoperative ileus although bowel movement yesterday Had to place an NG tube which drained about a liter over the last 24 hours of green succus entericus We will leave the NG tube until ileus resolves With retroperitoneal surgery ileus is common and only time will fix it Decrease IV rate and place on daily Lasix 12/13/2017 Patient better today Awake alert but somewhat unusual affect very anxious had hallucinations We will be seeing Dilaudid because this might be the culprit and switched to morphine Excellent proximal and distal pulses Incisions are clean and dry abdomen is softer but still moderately distended with very hypoactive bowel sounds consistent with prolonged paralytic ileus in face of extensive abdominal surgery NG tube over a liter in last 24 hours however this is been the cause of problems because of nurses inability to properly manage the NG tube On top of it NG tube somehow "came out" and needs to be reinserted KUB confirms paralytic ileus which is of course combination of surgery and narcotics administration for mobilization of the patient I am also worried about the ileus resolving but I am worried about patient developing atelectasis and eventually pneumonia it is absolutely Critical the patient walks in the choroid hours and have time devoted to him by physical therapy as well as nursing, rather than laying in bed 12/14/2017 Patient doing much better today He was very confused yesterday but much better today Abdomen soft hypoactive bowel sounds distention definitely decreased Ileus slowly resolving patient passing gas but no bowel movements NG tube about 800 cc over 24 hours We will keep NG tube for another day patient needs to ambulate and be out of bed to prevent pneumonia Probably NG tube will come out tomorrow all things equal 12/15/2017 Patient awake alert and oriented and slightly confused Abdomen soft hypoactive bowel sounds definitely decompressed but on percussion tympanic with obviously small bowel and colonic ileus We will give some laxatives to help patient along Cannot remove the NG tube to patient passes gas and has good bowel movement Incisions are clean and dry and patient has good peripheral perfusion Objective: Vital Signs Date Time Temp Pulse Resp B/P (MAP) Pulse Ox O2 Delivery O2 Flow Rate FiO2 12/15/17 06:14 104 12/15/17 05:07 98 12/15/17 04:28 98.8 111 156/75 (102) 95 12/15/17 04:00 102 12/15/17 03:00 102 12/15/17 02:00 102 12/15/17 01:00 98 12/15/17 00:49 98.1 107 159/74 (102) 94 12/15/17 00:00 104 12/14/17 23:00 104 12/14/17 22:00 112 12/14/17 21:00 116 12/14/17 20:48 98.9 110 151/72 (98) 94 12/14/17 20:00 112 12/14/17 19:00 116 12/14/17 18:00 110 12/14/17 17:00 103 12/14/17 16:29 95 21 12/14/17 16:00 107 12/14/17 15:09 99.0 100 18 128/64 (85) 95 12/14/17 15:00 96 12/14/17 14:00 108 12/14/17 13:00 102 12/14/17 12:00 106 12/14/17 11:30 98.0 109 20 143/65 (91) 95 12/14/17 11:00 106 12/14/17 10:00 108 12/14/17 09:00 102 12/14/17 08:00 107 Result Diagram: 12/14/17 0424 12/14/17 0424 Madi Anna MD Dec 15, 2017 07:40
[2017-12-15] MEDS ORDERED: LACTULOSE SYRUP 20 GM/30 ML CUP PO ONE (07:45)
[2017-12-15] MEDS: CLOPIDOGREL 75 MG TAB PO SCH (08:21)
[2017-12-15] MEDS: DOCUSATE SODIUM 100 MG CAP PO SCH ×3 (08:21→21:00)
[2017-12-15] MEDS: SENNOSIDES SYRUP 8.8 MG/5 ML CUP PO SCH ×2 (08:21→21:00)
[2017-12-15] MEDS: FUROSEMIDE 20 MG/2 ML VIAL IV PUSH SCH (08:22)
[2017-12-15] MEDS: SODIUM CHLORIDE 0.9% FLUSH 10 ML FLUSH IV FLUSH SCH (08:24)
[2017-12-15] MEDS: BISACODYL 10 MG SUPP RECTAL SCH ×2 (08:24)
[2017-12-15] MEDS: 1/2 NS + KCL 20 MEQ INJ 1,000 ML IV SCH (10:11)
[2017-12-15] MEDS: REMOVE OLD PATCH T-DERMAL SCH (13:00)
[2017-12-15] MEDS: ENOXAPARIN SODIUM 40 MG/0.4 ML SYRINGE SQ SCH (13:09)
[2017-12-15] MEDS: fentaNYL 25 MCG/HR PATCH T-DERMAL SCH (13:10)
[2017-12-16] VITALS (26 sets, daily range): BP systolic 136–146; BP diastolic 63–75; PULSE 86–116; RESP 18–20; TEMP 97.4–98.5; O2SAT 94–97
[2017-12-16] MEDS: oxyCODONE/ACETAMINOPHEN 5 MG/325 MG TAB PO PRN ×2 (00:17→08:27)
[2017-12-16] MEDS: ALPRAZolam 0.5 MG TAB PO SCH ×2 (00:18→08:26)
[2017-12-16] MEDS: PANTOPRAZOLE SODIUM 40 MG VIAL IV PUSH SCH (03:44)
[2017-12-16] MEDS: DOCUSATE SODIUM 100 MG CAP PO SCH ×4 (03:47→21:48)
[2017-12-16] MEDS: BISACODYL 10 MG SUPP RECTAL SCH ×2 (08:26→08:28)
[2017-12-16] MEDS: CLOPIDOGREL 75 MG TAB PO SCH (08:26)
[2017-12-16] MEDS: FUROSEMIDE 20 MG/2 ML VIAL IV PUSH SCH (08:28)
[2017-12-16] MEDS: SENNOSIDES SYRUP 8.8 MG/5 ML CUP PO SCH ×2 (08:28→21:48)
[2017-12-16] MEDS: SODIUM CHLORIDE 0.9% FLUSH 10 ML FLUSH IV FLUSH SCH (09:00)
[2017-12-16] MEDS: MORPHINE SULFATE 4 MG/ML INJ IV PUSH PRN (10:21)
[2017-12-16] MEDS: 1/2 NS + KCL 20 MEQ INJ 1,000 ML IV SCH (10:53)
[2017-12-16] MEDS: ENOXAPARIN SODIUM 40 MG/0.4 ML SYRINGE SQ SCH (12:57)
[2017-12-16] MEDS: ONDANSETRON HCL 4 MG/2 ML VIAL IV PUSH PRN (13:02)
[2017-12-16 14:09] LABS: HEMATOCRIT 30.9 % (39.0-51.0); HEMOGLOBIN 10.5 GM/DL (13.0-17.0); MEAN CELL VOLUME 102.4 FL (80.0-100.0); MEAN CORPUSCULAR HEMOGLOBIN 34.8 PG (27.0-34.0); MEAN PLATELET VOLUME 8.2 FL (7.0-11.0); PLATELET COUNT 287 TH/MM3 (150-450); RED BLOOD COUNT 3.01 MIL/MM3 (4.50-5.90); RED CELL DISTRIBUTION WIDTH 16.4 % (11.6-17.2); WHITE BLOOD COUNT 14.1 TH/MM3 (4.0-11.0)
--- NOTE | 2017-12-16 14:27 | PD.CAR.PN ---
CVT Progress Note Subjective/Hospital Course: 12/05/2017 As above noted in the H&P this patient has severe diffuse peripheral vascular disease with claudication at rest Patient has near total occlusion of common iliac arteries and then occlusion of the external iliac artery more distally with severe common femoral near occlusive disease and multilevel stenosis of both SFAs in the range of 90% Proximal popliteal arteries are equally diseased and trifurcations are stenosed in both legs Dominant vessel to left and right foot is anterior tibial artery and rest of the vessels are bits and pieces segmented throughout Patient needs aortobifemoral bypass and essentially bilateral femoral-popliteal bypass but his left leg is more symptomatic even at rest Patient will undergo aortobifemoral bypass and possibly left femoral-popliteal bypass tomorrow There is a small chance that aorta will be so calcified that it would be hard to enter. At that point we would convert to axillobifemoral bypass Discussed with patient at length the benefits and the risks of the procedure 12/07/2017 Patient is status post aortobifemoral bypass and left femoral-popliteal bypass with endarterectomy of the aorta and external iliac/common femoral arteries Patient is extubated since yesterday awake alert and oriented Pain appears to be well controlled Hemodynamically patient is stable requiring small amount of Levophed Abdomen soft few bowel sounds incision is clean and dry Groins are clean dry patient has excellent distal dopplerable pulses in feet are warm We will continue IV hydration n.p.o. status except for medication and general support Would keep patient on bedrest for at least another day considering the extent of surgery his age and comorbidities Doing very well at this time Sheetmetal Patternmaker help greatly appreciated 12/08/2017 Patient doing very well this morning Awake alert and oriented Abdomen soft incision clean and dry, few bowel sounds Excellent distal pulses in both legs. Feet are warm well perfused good capillary refill Out of bed Patient at this point is fluid overloaded and being third day should start mobilizing third space. We will give Lasix to help along and decrease IV rate to maintenance All things equal patient will be able to leave the unit tomorrow 12/09/2017 Patient doing very well Diuresis fair amount of urine and decreased in third space with some volume extracellular contraction Neurologically remains intact Abdomen soft incision clean and dry Bilateral femoral pulses palpable bilateral popliteal by Doppler Ray pedis posterior tibial by Doppler Feet are nice and warm and patient is well-perfused as opposed to before surgery Still remains somewhat hypervolemic but is gradually going to mobilize Plan Out of bed and ambulate Aggressive physical and occupational therapy Transfer to floor Remove arterial line and central line and dismantle the patient of unnecessary equipment We will start on clear liquids 12/10/2017 Patient doing well at this time Incision abdomen clean and dry Groin incisions clean and dry excellent bilateral perfusion Abdomen soft some hypoactive bowel sounds still persistent partial ileus Remains on clear liquids and will not advance until patient passes gas and has bowel movement Somewhat nauseous Plan Out of bed patient needs to ambulate more actively Adequate change in pain control Urology consult patient has significant swelling of the scrotum and penile skin obviously to do the dependent portion but this may be interfering with the removal of the Parikh catheter Rehab referral [facility] as soon as diet is advanced and patient is well 12/11/2017 Patient doing okay at this time Abdominal groin and leg incisions clean and dry Great pulse in the left femoropopliteal graft and bilateral palpable femoral pulses Bilateral good breath sounds with some crackles over the bases Abdomen is distended and patient has persistent ileus which is not uncommon after large retroperitoneal surgery of the sorts We will reinsert NG tube the patient decompresses for if he throws up he will aspirate and then will have much bigger problem on her hands Medication can still be given through the tube Hemoglobin 7.9, in face of coronary disease will transfuse 1 unit PRBC Patient needs to ambulate and be up and around Patient is probably somewhat fluid overloaded at this point based on clinical indices, generalized edema and lung exam with some crackles over the bases. On the other hand it is very hard to tell from the intake output summaries for these are completely incorrect and unreliable 12/12/2017 Patient doing better this morning Incisions are clean and dry Excellent distal pulses Patient still has some degree of generalized edema. Abdomen is soft hypoactive bowel sounds somewhat tender on palpation but patient is more complaining by the NG tube and is extremely anxious Persistent postoperative ileus although bowel movement yesterday Had to place an NG tube which drained about a liter over the last 24 hours of green succus entericus We will leave the NG tube until ileus resolves With retroperitoneal surgery ileus is common and only time will fix it Decrease IV rate and place on daily Lasix 12/13/2017 Patient better today Awake alert but somewhat unusual affect very anxious had hallucinations We will be seeing Dilyasid because this might be the culprit and switched to morphine Excellent proximal and distal pulses Incisions are clean and dry abdomen is softer but still moderately distended with very hypoactive bowel sounds consistent with prolonged paralytic ileus in face of extensive abdominal surgery NG tube over a liter in last 24 hours however this is been the cause of problems because of nurses inability to properly manage the NG tube On top of it NG tube somehow "came out" and needs to be reinserted KUB confirms paralytic ileus which is of course combination of surgery and narcotics administration for mobilization of the patient I am also worried about the ileus resolving but I am worried about patient developing atelectasis and eventually pneumonia it is absolutely Critical the patient walks in the choroid hours and have time devoted to him by physical therapy as well as nursing, rather than laying in bed 12/14/2017 Patient doing much better today He was very confused yesterday but much better today Abdomen soft hypoactive bowel sounds distention definitely decreased Ileus slowly resolving patient passing gas but no bowel movements NG tube about 800 cc over 24 hours We will keep NG tube for another day patient needs to ambulate and be out of bed to prevent pneumonia Probably NG tube will come out tomorrow all things equal 12/15/2017 Patient awake alert and oriented and slightly confused Abdomen soft hypoactive bowel sounds definitely decompressed but on percussion tympanic with obviously small bowel and colonic ileus We will give some laxatives to help patient along Cannot remove the NG tube to patient passes gas and has good bowel movement Incisions are clean and dry and patient has good peripheral perfusion 12/16/2017 Patient is a febrile White count elevated 14,000 with some left shift due to bilateral atelectasis left more than the right He is awake alert and oriented in time space and person Patient has a very unusual affect with lots of grimacing and inability to truly express very well although he answers simple questions normally Appears has encephalopathy on top of patient's early cognitive deficits from time before the surgery We will consult neuropsychology to evaluate the patient this may be effective the medications Incisions are clean and dry Abdomen is soft active bowel sounds and nasogastric drainage is decreased Patient is passing large amounts of gas and having 3 bowel movements today Ileus is resolving Patient will need active and very aggressive rehabilitation in order to be functional again Plan Neuropsychology consult DC NG tube Clear liquid diet Will stop morphine and Xanax at this point because patient is pinpoint and acting in the usual fashion Check liver function studies as well as ammonia level Patient will need rehab the next few days for this set him back physically significantly Bilateral breath sounds decreased over the both lung ramon basally Patient is developing atelectasis for he is unwilling to get out of bed walk and work with physical therapy and all Every day he spends more in chair instead of walking will be 1 week longer for rehabilitation Objective: Vital Signs Date Time Temp Pulse Resp B/P (MAP) Pulse Ox O2 Delivery O2 Flow Rate FiO2 12/16/17 13:00 108 12/16/17 12:00 108 12/16/17 11:00 98.0 108 20 141/75 (97) 95 12/16/17 11:00 105 12/16/17 10:00 102 12/16/17 09:00 114 12/16/17 08:23 96 21 12/16/17 08:00 86 12/16/17 07:15 97.4 105 20 146/69 (94) 96 12/16/17 07:15 92 12/16/17 06:07 96 12/16/17 05:00 93 12/16/17 04:41 98.5 90 20 136/63 (87) 97 12/16/17 04:00 92 12/16/17 03:00 98 12/16/17 02:00 116 12/16/17 00:00 100 12/15/17 23:30 98.4 102 20 145/67 (93) 97 12/15/17 23:00 105 12/15/17 22:00 100 12/15/17 21:00 98 12/15/17 20:55 96 21 12/15/17 20:00 98.0 101 18 164/77 (106) 96 12/15/17 20:00 98 12/15/17 19:00 102 12/15/17 18:00 97 12/15/17 17:00 96 12/15/17 16:00 98 12/15/17 15:25 98.3 101 20 125/65 (85) 97 12/15/17 15:00 97 Labs: Laboratory Tests Test 12/16/17 13:40 White Blood Count 14.1 TH/MM3 (4.0-11.0) Red Blood Count 3.01 MIL/MM3 (4.50-5.90) Hemoglobin 10.5 GM/DL (13.0-17.0) Hematocrit 30.9 % (39.0-51.0) Mean Corpuscular Volume 102.4 FL (80.0-100.0) Mean Corpuscular Hemoglobin 34.8 PG (27.0-34.0) Mean Corpuscular Hemoglobin Concent 34.0 % (32.0-36.0) Red Cell Distribution Width 16.4 % (11.6-17.2) Platelet Count 287 TH/MM3 (150-450) Mean Platelet Volume 8.2 FL (7.0-11.0) Result Diagram: 12/16/17 1340 12/14/17 0424 Madi Anna MD Dec 16, 2017 14:27
--- NOTE | 2017-12-16 16:00 | RADRPT ---
EXAM DATE/TIME: 12/16/2017 14:30 [facility] COMPARISON: CHEST SINGLE AP, December 09, 2017, 4:17. INDICATIONS : Shortness of breath. MEDICAL HISTORY : Cardiovascular disease. Hypertension SURGICAL HISTORY : None. ENCOUNTER: Initial ACUITY: 1 day PAIN SCORE: 0/10 LOCATION: Bilateral chest FINDINGS: A single view of the chest demonstrates the lungs to be symmetrically aerated with bibasilar airspace disease but I do think that there is overall improvement compared to prior. Probable right-sided eff usion but again, I believe this is less prominent. Heart size is smaller without overt evidence of fa ilure. Right IJ central venous catheter has been removed. Stable pleural-based calcifications in the right apex. CONCLUSION: 1. Improving bibasilar airspace disease, particularly on the left where there also appears to be a re solving pleural effusion. 2. Heart size is normal. No overt findings of failure. 3. Stable calcification of the right apex pleura. Sidney Mehta MD on December 16, 2017 at 15:50 Board Certified Radiologist. This report was verified electronically.
[2017-12-16 16:11] LABS: ALBUMIN 2.2 GM/DL (3.4-5.0); ALKALINE PHOSPHATASE 79 U/L (45-117); ALT (GPT) 20 U/L (12-78); AST (GOT) 22 U/L (15-37); BICARBONATE 29.9 MEQ/L (21.0-32.0); BLOOD UREA NITROGEN 16 MG/DL (7-18); CALCIUM 8.2 MG/DL (8.5-10.1); CHLORIDE 111 MEQ/L (98-107); CREATININE 0.76 MG/DL (0.60-1.30); GLOMERULAR FILTRATION RATE 100 ML/MIN (>89); GLUCOSE,RANDOM 76 MG/DL (74-106); SODIUM (NA) 153 MEQ/L (136-145); TOTAL BILIRUBIN ADULT 0.7 MG/DL (0.2-1.0); TOTAL PROTEIN 6.4 GM/DL (6.4-8.2)
[2017-12-16] MEDS ORDERED: POTASSIUM CHLOR 20 MEQ PREMIX 100 ML IV ONE (17:00)
[2017-12-16] MEDS: POTASSIUM CHLOR 20 MEQ PREMIX 100 ML IV PRN (19:58)
[2017-12-16] MEDS: TERAZOSIN HCL 5 MG CAP PO SCH (21:48)
[2017-12-17] VITALS (25 sets, daily range): BP systolic 115–132; BP diastolic 57–62; PULSE 97–142; RESP 18; TEMP 97.8–98.7; O2SAT 84–97
[2017-12-17] MEDS: DOCUSATE SODIUM 100 MG CAP PO SCH (08:20)
[2017-12-17] MEDS: CLOPIDOGREL 75 MG TAB PO SCH (08:20)
[2017-12-17] MEDS: SENNOSIDES SYRUP 8.8 MG/5 ML CUP PO SCH (08:21)
[2017-12-17] MEDS: BISACODYL 10 MG SUPP RECTAL SCH (08:21)
[2017-12-17] MEDS: ONDANSETRON HCL 4 MG/2 ML VIAL IV PUSH PRN (08:21)
--- NOTE | 2017-12-17 13:11 | PD.CAR.PN ---
CVT Progress Note Subjective/Hospital Course: 12/05/2017 As above noted in the H&P this patient has severe diffuse peripheral vascular disease with claudication at rest Patient has near total occlusion of common iliac arteries and then occlusion of the external iliac artery more distally with severe common femoral near occlusive disease and multilevel stenosis of both SFAs in the range of 90% Proximal popliteal arteries are equally diseased and trifurcations are stenosed in both legs Dominant vessel to left and right foot is anterior tibial artery and rest of the vessels are bits and pieces segmented throughout Patient needs aortobifemoral bypass and essentially bilateral femoral-popliteal bypass but his left leg is more symptomatic even at rest Patient will undergo aortobifemoral bypass and possibly left femoral-popliteal bypass tomorrow There is a small chance that aorta will be so calcified that it would be hard to enter. At that point we would convert to axillobifemoral bypass Discussed with patient at length the benefits and the risks of the procedure 12/07/2017 Patient is status post aortobifemoral bypass and left femoral-popliteal bypass with endarterectomy of the aorta and external iliac/common femoral arteries Patient is extubated since yesterday awake alert and oriented Pain appears to be well controlled Hemodynamically patient is stable requiring small amount of Levophed Abdomen soft few bowel sounds incision is clean and dry Groins are clean dry patient has excellent distal dopplerable pulses in feet are warm We will continue IV hydration n.p.o. status except for medication and general support Would keep patient on bedrest for at least another day considering the extent of surgery his age and comorbidities Doing very well at this time Resident Physician In Radiology help greatly appreciated 12/08/2017 Patient doing very well this morning Awake alert and oriented Abdomen soft incision clean and dry, few bowel sounds Excellent distal pulses in both legs. Feet are warm well perfused good capillary refill Out of bed Patient at this point is fluid overloaded and being third day should start mobilizing third space. We will give Lasix to help along and decrease IV rate to maintenance All things equal patient will be able to leave the unit tomorrow 12/09/2017 Patient doing very well Diuresis fair amount of urine and decreased in third space with some volume extracellular contraction Neurologically remains intact Abdomen soft incision clean and dry Bilateral femoral pulses palpable bilateral popliteal by Doppler Ray pedis posterior tibial by Doppler Feet are nice and warm and patient is well-perfused as opposed to before surgery Still remains somewhat hypervolemic but is gradually going to mobilize Plan Out of bed and ambulate Aggressive physical and occupational therapy Transfer to floor Remove arterial line and central line and dismantle the patient of unnecessary equipment We will start on clear liquids 12/10/2017 Patient doing well at this time Incision abdomen clean and dry Groin incisions clean and dry excellent bilateral perfusion Abdomen soft some hypoactive bowel sounds still persistent partial ileus Remains on clear liquids and will not advance until patient passes gas and has bowel movement Somewhat nauseous Plan Out of bed patient needs to ambulate more actively Adequate change in pain control Urology consult patient has significant swelling of the scrotum and penile skin obviously to do the dependent portion but this may be interfering with the removal of the Parikh catheter [facility]hab [facility] as diet is advanced and patient is well 12/11/2017 Patient doing okay at this time Abdominal groin and leg incisions clean and dry Great pulse in the left femoropopliteal graft and bilateral palpable femoral pulses Bilateral good breath sounds with some crackles over the bases Abdomen is distended and patient has persistent ileus which is not uncommon after large retroperitoneal surgery of the sorts We will reinsert NG tube the patient decompresses for if he throws up he will aspirate and then will have much bigger problem on her hands Medication can still be given through the tube Hemoglobin 7.9, in face of coronary disease will transfuse 1 unit PRBC Patient needs to ambulate and be up and around Patient is probably somewhat fluid overloaded at this point based on clinical indices, generalized edema and lung exam with some crackles over the bases. On the other hand it is very hard to tell from the intake output summaries for these are completely incorrect and unreliable 12/12/2017 Patient doing better this morning Incisions are clean and dry Excellent distal pulses Patient still has some degree of generalized edema. Abdomen is soft hypoactive bowel sounds somewhat tender on palpation but patient is more complaining by the NG tube and is extremely anxious Persistent postoperative ileus although bowel movement yesterday Had to place an NG tube which drained about a liter over the last 24 hours of green succus entericus We will leave the NG tube until ileus resolves With retroperitoneal surgery ileus is common and only time will fix it Decrease IV rate and place on daily Lasix 12/13/2017 Patient better today Awake alert but somewhat unusual affect very anxious had hallucinations We will be seeing Dilyasid because this might be the culprit and switched to morphine Excellent proximal and distal pulses Incisions are clean and dry abdomen is softer but still moderately distended with very hypoactive bowel sounds consistent with prolonged paralytic ileus in face of extensive abdominal surgery NG tube over a liter in last 24 hours however this is been the cause of problems because of nurses inability to properly manage the NG tube On top of it NG tube somehow "came out" and needs to be reinserted KUB confirms paralytic ileus which is of course combination of surgery and narcotics administration for mobilization of the patient I am also worried about the ileus resolving but I am worried about patient developing atelectasis and eventually pneumonia it is absolutely Critical the patient walks in the choroid hours and have time devoted to him by physical therapy as well as nursing, rather than laying in bed 12/14/2017 Patient doing much better today He was very confused yesterday but much better today Abdomen soft hypoactive bowel sounds distention definitely decreased Ileus slowly resolving patient passing gas but no bowel movements NG tube about 800 cc over 24 hours We will keep NG tube for another day patient needs to ambulate and be out of bed to prevent pneumonia Probably NG tube will come out tomorrow all things equal 12/15/2017 Patient awake alert and oriented and slightly confused Abdomen soft hypoactive bowel sounds definitely decompressed but on percussion tympanic with obviously small bowel and colonic ileus We will give some laxatives to help patient along Cannot remove the NG tube to patient passes gas and has good bowel movement Incisions are clean and dry and patient has good peripheral perfusion 12/16/2017 Patient is a febrile White count elevated 14,000 with some left shift due to bilateral atelectasis left more than the right He is awake alert and oriented in time space and person Patient has a very unusual affect with lots of grimacing and inability to truly express very well although he answers simple questions normally Appears has encephalopathy on top of patient's early cognitive deficits from time before the surgery We will consult neuropsychology to evaluate the patient this may be effective the medications Incisions are clean and dry Abdomen is soft active bowel sounds and nasogastric drainage is decreased Patient is passing large amounts of gas and having 3 bowel movements today Ileus is resolving Patient will need active and very aggressive rehabilitation in order to be functional again Plan Neuropsychology consult DC NG tube Clear liquid diet Will stop morphine and Xanax at this point because patient is pinpoint and acting in the usual fashion Check liver function studies as well as ammonia level Patient will need rehab the next few days for this set him back physically significantly Bilateral breath sounds decreased over the both lung ramon basally Patient is developing atelectasis for he is unwilling to get out of bed walk and work with physical therapy and all Every day he spends more in chair instead of walking will be 1 week longer for rehabilitation 12/17/17 VSS WBC 14 K Patient awake and alert but sometimes confused and talks about some fantasies. Bilateral BS decreased over the R and L base. Patient has some atelectasis due to inactivity and BR Abdomen soft, ileus resolved. Incision clean/dry healing nicely. Patient has had 8 BMs today. Refuses to eat because he "burps" and cigars will come out.... Neuropsychology Dr Juarez consult greatly appreciated Patient is very slaow to work with PT/OT Once on diet can transfer to rehab. Objective: Vital Signs Date Time Temp Pulse Resp B/P (MAP) Pulse Ox O2 Delivery O2 Flow Rate FiO2 12/17/17 12:00 114 12/17/17 11:29 95 21 12/17/17 11:00 114 12/17/17 11:00 98.1 110 18 129/60 (83) 94 12/17/17 10:00 112 12/17/17 09:00 122 12/17/17 08:00 142 12/17/17 07:15 121 12/17/17 07:15 98.7 115 18 132/61 (84) 93 12/17/17 06:00 114 12/17/17 05:00 120 12/17/17 04:00 97 12/17/17 03:00 110 12/17/17 03:00 98.1 110 18 132/62 (85) 94 12/17/17 02:00 110 12/17/17 01:00 108 12/17/17 00:00 104 12/16/17 23:00 97.8 105 18 142/66 (91) 95 12/16/17 23:00 105 12/16/17 22:00 102 12/16/17 21:00 106 12/16/17 20:00 107 12/16/17 19:36 96 12/16/17 19:00 98.0 110 18 136/64 (88) 95 12/16/17 19:00 110 12/16/17 18:00 107 12/16/17 17:00 108 12/16/17 16:00 112 12/16/17 15:00 97.9 116 18 140/68 (92) 94 12/16/17 15:00 116 12/16/17 14:00 104 Result Diagram: 12/16/17 1340 12/16/17 1524 Madi Anna MD Dec 17, 2017 13:11
[2017-12-17] MEDS: ENOXAPARIN SODIUM 40 MG/0.4 ML SYRINGE SQ SCH (13:42)
--- NOTE | 2017-12-17 16:23 | PD.HHIRBSE ---
Patient History Record/History Review Reason for Referral: The patient is a 77 year old right handed male who initially presented with severe claudication and inability to walk more than 30 feet with severe pain in his legs and hips. He has a past medical history of CAD, HTN, hyperlipidemia, GERD, OA and BPH. He underwent aortobifemoral bypass, and now presents with some agitation/restlessness, usual affect with grimacing and problems expressing his desires. Nursing reported some improvement in status since d/ cing certain medications, specifically benzos and narcotics, and that his encephalopathic condition appears improving. At the request of his vascular surgeon, this patient is referred for baseline neurobehavioral status examination to assess cognitive, behavioral and emotional aspects of the injury and to provide treatment recommendations. Past Surgical/Medical History Past Surgery: Yes Major surgery in last 100 days: Yes Hx Anesthesia Reactions: No Hx Orthopedic Surgery: Yes (bone removed from toe) Hx Cardiac Surgery: Yes (STENTS and BALLOON) Hx Genitourinary Surgery: Yes (vasectomy) Hx of Neuro Prob: No Hx Arthritis: Yes Hypertension (High Blood Press: Yes Hx of Respiratory Problem: No Hx of GI Problems: No Hx of Problems: No Hx of Endocrine Problems: No Hx of Eye Probl: No Hx of Hearing or Ear Problems: No Hx Dental Problems: No Hx Psychiatric Problems: No Hx Blood Dyscrasias: No Hx of MDRO: No Other Devices: cardiac stents Blood Transfusion History Will receive Blood /Blood prod: Yes Hx Blood Transfusions: No Medication Active Medications Potassium Chloride 100 ml @ 50 mls/hr ONCE ONCE IV Last administered on at 17:34; Admin Dose 50 MLS/HR; Start 12/16/17 at 17:00; Stop 12/16/17 at 18: 59; Status DC Mental Status Assessment Orientation: oriented to Self, oriented to Place, oriented to Time, oriented to Situation Mental Status: WFL: Language/Interactions, Problem-Solving, Impaired: Thought processing, Attention, Learning/Memory Observation The patient is alert and oriented to person, place, time and circumstances surrounding the reason for hospitalization. In terms of attention skills, the patient demonstrated difficulties sustaining attention to tasks as well as reversing thoughts. He was able to remain on task and remember basic instructions, but he had difficulties with more complex instructions. In terms of memory functioning, the patient was only able to remember one of three words after a brief period of time. The patient initiated spontaneous conversation. Speech was characterized by adequate prosody, grammar, articulation, volume and rate. Basic naming skills were intact. Language repetition skills were intact. The patients comprehensions for basic one- and two-stage commands were intact. Basic verbal abstraction and problem-solving skills were intact. The patient appears to possess adequate insight and awareness into their situation and within the limits of this brief evaluation, adequate judgment. Adjustment/Coping Assessment Adjustment/Coping: Moderate: Depression, Severe: Anxiety Observation The patients thought content was free from suicidal, homicidal or paranoid ideation, and the patients thought processes were logical and goal-directed albeit pain preoccupied. The patients mood was dysthymic and tearful, and the affect was sad and grieving. LTG Status: Deferred STG Status: Deferred Team Members: Neuropsychologist Behavior Assessment Agitation: Moderate Treatment Engagement: Average Observation Behaviorally, the patient demonstrated no signs of agitation, impulsivity or disinhibition. There was no remarkable evidence of a formal thought disorder or psychosis. LTG - Status: Deferred STG Status: Deferred Team Members: Neuropsychologist Diagnosis/Discharge Plan Impression This 77 year old man with recent vascular surgery presents with unusual affect, problems with expression and is somewhat encephalopathic. Neurobehavioral exam argues against a structural neurological etiology. Rather, he appears to have two issues. His primary issue is pain, which is exacerbated by underlying issues and is clouding his mentation. The underlying issue appears to be psychological factors affecting physical condition. This patient has longstanding issues of clinical depression, exacerbated by poor parental relationship and grief related to his 's and subsequent loneliness. This underlying condition is exacerbating his pain. 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 To assist with this I ordered to ABS to monitor his agitation/restlessness as he continues to recovery. I will follow him daily to ensure that he is progressing in this fashion. He will eventually require some level of physical rehabilitation efforts. If he transfers to [place], I will follow him there too. At this point in the recovery process, the patient does have cognitive capacity as the patient is able to understand a situation and its likely consequences, and he is he able to manipulate information rationally. Cognitive capacity will be assessed throughout the recovery process. Discharge Planning Anticipated Problems The greatest impediment to his recovery will be psychological factors affecting his physical condition. As you have already done, avoid benzodiazepines and narcotic medications. Consider also having the supervisor record press stop by and see him during his stay. I will also see him daily to facilitate his psychological well being. Treatment Plan To facilitate a resolution of his depression, consider Cymbalta 30 BID, unless medically contraindicated, which would treat pain and depression. Also, this clinician will continue to follow with you throughout the course of this patient s rehabilitation treatment, and I will be available to meet with the patients family/support system to facilitate their understanding and the ongoing care of their family member. The goals of neuropsychological intervention shall be both educational and supportive to the family/support system as is deemed clinically appropriate. Discharge Needs To be determined. Thank you Thank you for the opportunity to assist in this patients care. Preston Juarez, Ph.D., ABPP Board Certified in Clinical Neuropsychology [place] [employer] [place] Licensed Psychologist [id number] Preston Juarez PhD Dec 17, 2017 4:22 pm
[2017-12-17] MEDS: TERAZOSIN HCL 5 MG CAP PO SCH (20:58)
[2017-12-17] MEDS: DULoxetine HCl DR 30 MG CAP PO SCH (20:58)
[2017-12-18] VITALS (15 sets, daily range): BP systolic 99–147; BP diastolic 55–66; PULSE 74–124; RESP 16–18; TEMP 96.9–98; O2SAT 95–97
[2017-12-18] MEDS: METOPROLOL TARTRATE 50 MG TAB PO SCH ×3 (00:09→22:46)
[2017-12-18] MEDS ORDERED: IOHEXOL 350 MG/ML 10 ML VIAL (for RAD DIAG) IVCONTRAST ONE ×2 (00:49→12:07)
--- NOTE | 2017-12-18 01:02 | RADRPT ---
EXAM DATE/TIME: 12/18/2017 00:34 [facility] COMPARISON: CTA RUNOFF W 3D RECON, December 04, 2017, 20:18. INDICATIONS : Tachacardia. IV CONTRAST: 75 cc Omnipaque 350 (iohexol) IV RADIATION DOSE: 9.61 CTDIvol (mGy) MEDICAL HISTORY : Hypertension. Cardiovascular disease Deep venous thrombosis. SURGICAL HISTORY : None. ENCOUNTER: Initial ACUITY: 1 day PAIN SCALE: 0/10 LOCATION: chest TECHNIQUE: Volumetric scanning of the chest was performed using a pulmonary embolism protocol MIP images were re constructed. Using automated exposure control and adjustment of the mA and/or kV according to patien t size, radiation dose was kept as low as reasonably achievable to obtain optimal diagnostic quality images. DICOM format image data is available electronically for review and comparison. Follow-up recommendations for detected pulmonary nodules are based at a minimum on nodule size and pa tient risk factors according to Fleischner Society Guidelines. FINDINGS: There is no pulmonary embolus. There is right lower lobe infiltrate. In the superior segment of the right lower lobe is a 2.5 cm cav itary mass. Mild to moderate severity chronic interstitial changes are present and there is mild emph ysema. Tiny right pleural effusion. Chronic right apical pleural thickening. There is also right side pericardial calcification typically related to previous pericarditis. Coronary artery calcification noted. No lymphadenopathy demonstrated. Upper abdomen only partly included on the study. Wall thickening and distention seen of the colon in the right upper quadrant. CONCLUSION: 1. No pulmonary embolus. 2. Cavitary mass in the superior segment of the right lower lobe. The differential would include ciara gnancy and infection. 3. Right lower lobe pneumonia. 4. Chronic fibroemphysematous changes. 5. Small right pleural effusion. 6. Suspected colitis, only partly visualized. There is also apparent distention of the visualized col on and a colonic obstruction is possible. Abdomen radiographs are recommended. These colonic findings appear new from the comparison runoff. 7. Chronic appearing pericardial calcification. Coronary artery atherosclerotic calcification. Patrice Colmenares MD on December 18, 2017 at 0:51 Board Certified Radiologist. This report was verified electronically.
[2017-12-18 02:02] LABS: MAGNESIUM 1.4 MG/DL (1.5-2.5); TROPONIN I LESS THAN 0.02 NG/ML (0.02-0.05)
[2017-12-18] MEDS: 1/2 NS + KCL 20 MEQ INJ 1,000 ML IV SCH (02:07)
[2017-12-18] MEDS: POTASSIUM CHLOR 20 MEQ PREMIX 100 ML IV PRN ×4 (02:50→10:40)
[2017-12-18 05:18] LABS: AUTOMATED NEUTROPHIL # 9.1 TH/MM3 (1.8-7.7); BASOPHIL % 0.4 % (0.0-2.0); EOSINOPHIL # 0.1 TH/MM3 (0-0.4); HEMATOCRIT 23.6 % (39.0-51.0); HEMOGLOBIN 8.3 GM/DL (13.0-17.0); LYMPH % 5.8 % (9.0-44.0); LYMPHOCYTE # 0.6 TH/MM3 (1.0-4.8); MEAN CELL VOLUME 103.6 FL (80.0-100.0); MEAN CORPUSCULAR HEMOGLOBIN 36.5 PG (27.0-34.0); MEAN CORPUSCULAR HGB CONC 35.2 % (32.0-36.0); MEAN PLATELET VOLUME 8.9 FL (7.0-11.0); MONO % 7.3 % (0.0-8.0); MONOCYTE # 0.8 TH/MM3 (0-0.9); NEUT % 85.5 % (16.0-70.0); PLATELET COUNT 216 TH/MM3 (150-450); RED BLOOD COUNT 2.28 MIL/MM3 (4.50-5.90); RED CELL DISTRIBUTION WIDTH 16.6 % (11.6-17.2); WHITE BLOOD COUNT 10.6 TH/MM3 (4.0-11.0)
[2017-12-18 05:38] LABS: ALBUMIN 1.8 GM/DL (3.4-5.0); BICARBONATE 30.3 MEQ/L (21.0-32.0); CALCIUM 7.4 MG/DL (8.5-10.1); CALCIUM-PROTEIN CORRECTED 8.3 MG/DL (8.5-10.1); CREATININE 0.87 MG/DL (0.60-1.30); TOTAL BILIRUBIN ADULT 0.6 MG/DL (0.2-1.0); TOTAL PROTEIN 5.4 GM/DL (6.4-8.2)
[2017-12-18] MEDS: DULoxetine HCl DR 30 MG CAP PO SCH ×2 (10:41→22:46)
[2017-12-18] MEDS: CLOPIDOGREL 75 MG TAB PO SCH (10:41)
--- NOTE | 2017-12-18 12:28 | RADRPT ---
EXAM DATE/TIME: 12/18/2017 11:59 [facility] COMPARISON: CTA RUNOFF W 3D RECON, December 04, 2017, 20:18. INDICATIONS : Colitis IV CONTRAST: 75 cc Omnipaque 350 (iohexol) IV ORAL CONTRAST: No oral contrast ingested. RADIATION DOSE: 10.02 CTDIvol (mGy) MEDICAL HISTORY : Cardiovascular disease. Hypertension. SURGICAL HISTORY : None. ENCOUNTER: Initial ACUITY: 1 day PAIN SCALE: 6/10 LOCATION: Abdomen TECHNIQUE: Volumetric scanning of the abdomen and pelvis was performed. Using automated exposure control and ad justment of the mA and/or kV according to patient size, radiation dose was kept as low as reasonably achievable to obtain optimal diagnostic quality images. DICOM format image data is available electro nically for review and comparison. FINDINGS: LOWER LUNGS: There is mild consolidation and/or atelectasis in both lower lobes with trace left pleural fluid and small right pleural effusion. These findings are new since the prior study. There is stable pericardi al calcification on the right. Coronary artery calcification is present. LIVER: Homogeneous density without lesion. There is no dilation of the biliary tree. No calcified gallston es. SPLEEN: Normal size without lesion. PANCREAS: Within normal limits. KIDNEYS: Normal in size and shape. There is no mass, stone or hydronephrosis. ADRENAL GLANDS: Within normal limits. VASCULAR: There is severe atherosclerotic disease of the abdominal aorta with severe atherosclerotic calcified plaque extending into the proximal superior mesenteric artery. The SIDDHARTH is not visualized. 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 As the prior study the patient has underg one aortobifemoral bypass graft. The limbs of the bypass graft are patent. No aneurysm is present. BOWEL/MESENTERY: The stomach demonstrates no abnormality. Small bowel demonstrates no acute finding but is mildly dist ended measuring up to 3.2 cm. The there is a loculated collection of air beneath the right hemidiaphr agm which does not appear to be within a definite loop of bowel. Colon demonstrates no wall thickenin g or inflammation to suggest a colitis. There is a small volume of free fluid in the right upper quad rant anterior to the liver adjacent to the suspected free air. There is associated adjacent peritonea l enhancement. A small volume of free fluid is also present within the inferior pelvis and it also is associated with mild peritoneal enhancement. Mild intraloop fluid is present between small bowel seg ments in the upper pelvis. ABDOMINAL WALL: There is staple line along the midline of the anterior abdominal wall related to the recent surgery a period there is mild diffuse subcutaneous edema. RETROPERITONEUM: There is no lymphadenopathy. BLADDER: Decompressed with a Parikh catheter present. There is excreted intravenous contrast within the urinary bladder. REPRODUCTIVE: Within normal limits. INGUINAL: No lymphadenopathy. There is fluid adjacent to the distal limbs of the aortobifemoral bypass graft, p resumably representing seromas. Small loculates of free air is present within the left inguinal canal . MUSCULOSKELETAL: There are degenerative changes throughout the lumbar spine but no acute osseous abnormality is seen. CONCLUSION: 1. There are no imaging findings to indicate a colitis, as questioned. 2. However, there is a free fluid loculated in the right upper quadrant and in the inferior pelvis wh ich is associated with peritoneal enhancement raising suspicion for an infected fluid collection. Add itionally, there is a collection of air beneath the right hemidiaphragm and anterior to the liver kee t is not clearly within bowel and could represent free intraperitoneal air. 3. There is a new small right pleural effusion and trace left pleural fluid. There is associated comp ressive atelectasis in the lower lobes along with airspace consolidation. 4. Severe atherosclerotic disease with changes indicative of interval aortobifemoral bypass graft. 5. Anasarca. Patrice Benton MD on December 18, 2017 at 12:14 Board Certified Radiologist. This report was verified electronically.
[2017-12-18] MEDS: ENOXAPARIN SODIUM 40 MG/0.4 ML SYRINGE SQ SCH (13:00)
[2017-12-18] MEDS: REMOVE OLD PATCH T-DERMAL SCH (13:00)
--- NOTE | 2017-12-18 13:04 | HHI.PR ---
Subjective Subjective Notes c/o abdominal pain feeling better than yesterday Objective Vitals/I&O Vital Signs Date Time Temp Pulse Resp B/P (MAP) Pulse Ox O2 Delivery O2 Flow Rate FiO2 12/18/17 12:29 98.0 74 18 110/58 (75) 12/18/17 08:23 96 12/17/17 21:18 21 Labs Laboratory Tests Test 12/18/17 01:02 12/18/17 04:31 Potassium Level 2.7 3.1 Magnesium Level 1.4 Troponin I LESS THAN 0.02 White Blood Count 10.6 Red Blood Count 2.28 Hemoglobin 8.3 Hematocrit 23.6 Mean Corpuscular Volume 103.6 Mean Corpuscular Hemoglobin 36.5 Mean Corpuscular Hemoglobin Concent 35.2 Red Cell Distribution Width 16.6 Platelet Count 216 Mean Platelet Volume 8.9 Neutrophils (%) (Auto) 85.5 Lymphocytes (%) (Auto) 5.8 Monocytes (%) (Auto) 7.3 Eosinophils (%) (Auto) 1.0 Basophils (%) (Auto) 0.4 Neutrophils # (Auto) 9.1 Lymphocytes # (Auto) 0.6 Monocytes # (Auto) 0.8 Eosinophils # (Auto) 0.1 Basophils # (Auto) 0.0 CBC Comment DIFF FINAL Differential Comment Blood Urea Nitrogen 17 Creatinine 0.87 Random Glucose 102 Total Protein 5.4 Albumin 1.8 Calcium Level 7.4 Alkaline Phosphatase 86 Aspartate Amino Transf (AST/SGOT) 29 Alanine Aminotransferase (ALT/SGPT) 22 Total Bilirubin 0.6 Sodium Level 149 Chloride Level 112 Carbon Dioxide Level 30.3 Anion Gap 7 Estimat Glomerular Filtration Rate 86 Protein Corrected Calcium 8.[address] scan-RUQ abscess Disinhibition Score: 21.00 Aggression Score: 14.00 Lability Score: 14.00 Agitated Behavior Total Score: 18 Cardiovascular: Regular Lungs: Clear Abdomen: Post-op tenderness Extremities: No edema A/P Assessment and Plan hypernatremia- intravascular dry RUQ abscess hydrate gently clear liquids zosyn percutan.drainage Mee Craig MD Dec 18, 2017 13:04
[2017-12-18] MEDS ORDERED: LACTATED RINGER'S 1000 ML INJ 500 ML IV ONE (13:45)
[2017-12-18] MEDS: LACTATED RINGER'S 1000 ML INJ 1,000 ML IV SCH ×2 (14:00→22:47)
[2017-12-18] MEDS ORDERED: PIPERACIL-TAZO 3.375 GM PREMIX 50 ML IV SCH (14:00)
[2017-12-18] MEDS: fentaNYL 25 MCG/HR PATCH T-DERMAL SCH (14:01)
[2017-12-18] MEDS ORDERED: LORazepam 2 MG/ML VIAL ONE (16:32)
[2017-12-18] MEDS ORDERED: fentaNYL CITRATE 250 MCG/5 ML AMP ONE (16:32)
[2017-12-18] MEDS: PIPERACIL-TAZO 3.375 GM PREMIX 50 ML IV SCH ×2 (18:17→22:46)
--- NOTE | 2017-12-18 18:22 | RADRPT ---
EXAM DATE/TIME: 12/18/2017 16:57 [facility] COMPARISON: No previous studies available for comparison. INDICATIONS : Fluid collection right upper abdomen SEDATION TIME: 30 minutes MEDICATION(S): 1.) 2 mg lorazepam (Ativan) IV 2.) 250 mcg fentanyl (Sublimaze) IV DEVICE(S): 1.) Skater 7fr Total volume of 15 cc of cloudy, yellow fluid was removed. Fluid was sent for laboratory ordered studies. MEDICAL HISTORY : Cardiovascular disease. Hypertension. SURGICAL HISTORY : None. ENCOUNTER: Initial ACUITY: 1 day PAIN SCORE: 0/10 LOCATION: Right Abdomen PROCEDURE: PROCEDURE : 1. CT guided drainage of the right upper quadrant fluid and air collection. 2. Conscious sedation with continuous EKG and oximetry monitoring. The risks, benefits and alternatives to the procedure were explained and verbal and written consent w as obtained. Using automated exposure control and adjustment of the mA and/or kV according to patient size, radiation dose was kept as low as reasonably achievable to obtain optimal diagnostic quality i mages. The site was prepped in sterile fashion. Full sterile technique was used, including cap, ma sk, sterile gloves and gown and a large sterile sheet. Hand hygiene and 2% chlorhexidine and/or beta dine/alcohol prep was utilized per protocol for cutaneous antisepsis. The skin and subcutaneous tiss ues were infiltrated with local anesthetic solution. DICOM format image data is available electronic ally for review and comparison. Using CT guidance the prescribed site was localized. Drainage was performed using the prescribed cat heter. Purulent drainage was aspirated and a sample was sent for culture. The patient tolerated the procedure well and there were no complications. Conscious sedation was per formed with the prescribed dosages and duration as above in the presence of an independent trained ra diology nurse to assist in the monitoring of the patient. EKG and oximetry remained stable throughou t the procedure. The patient tolerated the procedure well and there were no complications. The patient was sent to pos t anesthesia recovery in stable condition. CONCLUSION: Uncomplicated CT guided drainage. Patrice Turner MD on December 18, 2017 at 18:20 Board Certified Radiologist. This report was verified electronically.
[2017-12-18] MEDS ORDERED: LIDOCAINE 1%/EPINEPHrine 1:100,000 SOLN 20 ML VIAL OTHER ONE (18:27)
--- NOTE | 2017-12-18 20:14 | MB ---
cc: Smita Minaya MD DATE: 12/18/2017 HISTORY OF PRESENT ILLNESS: This is a 77-year-old white male with history of peripheral vascular disease with severe claudication. He underwent aortobifemoral bypass and left femoral popliteal bypass with endarterectomy of the aorta and external iliac and common femoral arteries. The patient has been tachycardic and cardiac evaluation was requested. He denies any chest pain or excessive dyspnea. He has not had any lower extremity edema. He denies any lower extremity pain. He complains of abdominal pain. He was diagnosed with right upper quadrant abscess which has been treated with percutaneous drainage and antibiotics. PAST MEDICAL HISTORY: Positive for coronary artery disease, hypertension, severe peripheral vascular disease as above. PAST SURGICAL HISTORY: History of foot surgery and vasectomy. MEDICATIONS: Include: 1. Alprazolam. 2. Metoprolol. 3. Cymbalta. 4. Fentanyl patch. 5. Plavix. 6. Lovenox. 7. Terazosin. ALLERGIES: NONE. SOCIAL HISTORY: The patient currently does not smoke. He used to drink alcohol. He is accompanied by his son. FAMILY HISTORY: Negative for heart disease. REVIEW OF SYSTEMS: Otherwise negative. PHYSICAL EXAMINATION: VITAL SIGNS: Blood pressure 120/60, pulse 86 and regular. HEENT: Negative. NECK: 2+ carotid upstrokes, no bruits. LUNGS: Clear with decreased breath sounds at bases. ABDOMEN: Soft, mildly HEART: Regular. No murmur or gallop. ABDOMEN: Soft. EXTREMITIES: Without edema and 1+ distal pulses. NEUROLOGIC: Grossly nonfocal. DIAGNOSTIC STUDIES: EKG was reviewed and showed normal sinus rhythm, left axis, and inferolateral Q-waves. Telemetry showed sinus tachycardia. LABORATORY DATA: Hemoglobin 8.3. Potassium 3.1, creatinine 0.9. AST and ALT normal. Troponin less than 0.02. DIAGNOSES: 1. Sinus tachycardia. 2. Peripheral vascular disease, status post surgical revascularization. 3. Coronary artery disease. 4. Hypertension. 5. Right upper quadrant abscess, status post percutaneous drainage. DISPOSITION: Mr. De Leon will be monitored on telemetry. I recommend to continue his current program. His sinus tachycardia is likely related to his multiple medical problems including RUQ abscess. I will follow him for Cardiology during his hospitalization. The situation was discussed with the patient and his son. MD TRISTAN Alvarado , 07:45 PM , 08:13 PM LAURIE
[2017-12-18] MEDS: TERAZOSIN HCL 5 MG CAP PO SCH (22:46)
[2017-12-18] MEDS: POTASSIUM CHLOR 40 MEQ PREMIX 100 ML IV PRN (23:56)
[2017-12-19] VITALS (25 sets, daily range): BP systolic 109–136; BP diastolic 55–86; PULSE 65–102; RESP 16–20; TEMP 97.6–98.4; O2SAT 93–99
[2017-12-19] MEDS ORDERED: POTASSIUM CHLOR 20 MEQ PREMIX 100 ML ONE (00:01)
[2017-12-19] MEDS: POTASSIUM CHLOR 20 MEQ PREMIX 100 ML IV PRN (00:02)
[2017-12-19] MEDS: PIPERACIL-TAZO 3.375 GM PREMIX 50 ML IV SCH ×3 (05:29→17:00)
[2017-12-19] MEDS: DULoxetine HCl DR 30 MG CAP PO SCH ×2 (08:46→22:18)
[2017-12-19] MEDS: METOPROLOL TARTRATE 50 MG TAB PO SCH ×2 (08:46→22:19)
[2017-12-19] MEDS: CLOPIDOGREL 75 MG TAB PO SCH (08:47)
[2017-12-19] MEDS: oxyCODONE/ACETAMINOPHEN 5 MG/325 MG TAB PO PRN (08:50)
--- NOTE | 2017-12-19 10:44 | PD.CAR.PN ---
CVT Progress Note Subjective/Hospital Course: 12/05/2017 As above noted in the H&P this patient has severe diffuse peripheral vascular disease with claudication at rest Patient has near total occlusion of common iliac arteries and then occlusion of the external iliac artery more distally with severe common femoral near occlusive disease and multilevel stenosis of both SFAs in the range of 90% Proximal popliteal arteries are equally diseased and trifurcations are stenosed in both legs Dominant vessel to left and right foot is anterior tibial artery and rest of the vessels are bits and pieces segmented throughout Patient needs aortobifemoral bypass and essentially bilateral femoral-popliteal bypass but his left leg is more symptomatic even at rest Patient will undergo aortobifemoral bypass and possibly left femoral-popliteal bypass tomorrow There is a small chance that aorta will be so calcified that it would be hard to enter. At that point we would convert to axillobifemoral bypass Discussed with patient at length the benefits and the risks of the procedure 12/07/2017 Patient is status post aortobifemoral bypass and left femoral-popliteal bypass with endarterectomy of the aorta and external iliac/common femoral arteries Patient is extubated since yesterday awake alert and oriented Pain appears to be well controlled Hemodynamically patient is stable requiring small amount of Levophed Abdomen soft few bowel sounds incision is clean and dry Groins are clean dry patient has excellent distal dopplerable pulses in feet are warm We will continue IV hydration n.p.o. status except for medication and general support Would keep patient on bedrest for at least another day considering the extent of surgery his age and comorbidities Doing very well at this time [employer] help greatly appreciated 12/08/2017 Patient doing very well this morning Awake alert and oriented Abdomen soft incision clean and dry, few bowel sounds Excellent distal pulses in both legs. Feet are warm well perfused good capillary refill Out of bed Patient at this point is fluid overloaded and being third day should start mobilizing third space. We will give Lasix to help along and decrease IV rate to maintenance All things equal patient will be able to leave the unit tomorrow 12/09/2017 Patient doing very well Diuresis fair amount of urine and decreased in third space with some volume extracellular contraction Neurologically remains intact Abdomen soft incision clean and dry Bilateral femoral pulses palpable bilateral popliteal by Doppler Ray pedis posterior tibial by Doppler Feet are nice and warm and patient is well-perfused as opposed to before surgery Still remains somewhat hypervolemic but is gradually going to mobilize Plan Out of bed and ambulate Aggressive physical and occupational therapy Transfer to floor Remove arterial line and central line and dismantle the patient of unnecessary equipment We will start on clear liquids 12/10/2017 Patient doing well at this time Incision abdomen clean and dry Groin incisions clean and dry excellent bilateral perfusion Abdomen soft some hypoactive bowel sounds still persistent partial ileus Remains on clear liquids and will not advance until patient passes gas and has bowel movement Somewhat nauseous Plan Out of bed patient needs to ambulate more actively Adequate change in pain control Urology consult patient has significant swelling of the scrotum and penile skin obviously to do the dependent portion but this may be interfering with the removal of the Parikh catheter Rehab referral patient will transfer to [facility] as soon as diet is advanced and patient is well 12/11/2017 Patient doing okay at this time Abdominal groin and leg incisions clean and dry Great pulse in the left femoropopliteal graft and bilateral palpable femoral pulses Bilateral good breath sounds with some crackles over the bases Abdomen is distended and patient has persistent ileus which is not uncommon after large retroperitoneal surgery of the sorts We will reinsert NG tube the patient decompresses for if he throws up he will aspirate and then will have much bigger problem on her hands Medication can still be given through the tube Hemoglobin 7.9, in face of coronary disease will transfuse 1 unit PRBC Patient needs to ambulate and be up and around Patient is probably somewhat fluid overloaded at this point based on clinical indices, generalized edema and lung exam with some crackles over the bases. On the other hand it is very hard to tell from the intake output summaries for these are completely incorrect and unreliable 12/12/2017 Patient doing better this morning Incisions are clean and dry Excellent distal pulses Patient still has some degree of generalized edema. Abdomen is soft hypoactive bowel sounds somewhat tender on palpation but patient is more complaining by the NG tube and is extremely anxious Persistent postoperative ileus although bowel movement yesterday Had to place an NG tube which drained about a liter over the last 24 hours of green succus entericus We will leave the NG tube until ileus resolves With retroperitoneal surgery ileus is common and only time will fix it Decrease IV rate and place on daily Lasix 12/13/2017 Patient better today Awake alert but somewhat unusual affect very anxious had hallucinations We will be seeing Dilyasid because this might be the culprit and switched to morphine Excellent proximal and distal pulses Incisions are clean and dry abdomen is softer but still moderately distended with very hypoactive bowel sounds consistent with prolonged paralytic ileus in face of extensive abdominal surgery NG tube over a liter in last 24 hours however this is been the cause of problems because of nurses inability to properly manage the NG tube On top of it NG tube somehow "came out" and needs to be reinserted KUB confirms paralytic ileus which is of course combination of surgery and narcotics administration for mobilization of the patient I am also worried about the ileus resolving but I am worried about patient developing atelectasis and eventually pneumonia it is absolutely Critical the patient walks in the choroid hours and have time devoted to him by physical therapy as well as nursing, rather than laying in bed 12/14/2017 Patient doing much better today He was very confused yesterday but much better today Abdomen soft hypoactive bowel sounds distention definitely decreased Ileus slowly resolving patient passing gas but no bowel movements NG tube about 800 cc over 24 hours We will keep NG tube for another day patient needs to ambulate and be out of bed to prevent pneumonia Probably NG tube will come out tomorrow all things equal 12/15/2017 Patient awake alert and oriented and slightly confused Abdomen soft hypoactive bowel sounds definitely decompressed but on percussion tympanic with obviously small bowel and colonic ileus We will give some laxatives to help patient along Cannot remove the NG tube to patient passes gas and has good bowel movement Incisions are clean and dry and patient has good peripheral perfusion 12/16/2017 Patient is a febrile White count elevated 14,000 with some left shift due to bilateral atelectasis left more than the right He is awake alert and oriented in time space and person Patient has a very unusual affect with lots of grimacing and inability to truly express very well although he answers simple questions normally Appears has encephalopathy on top of patient's early cognitive deficits from time before the surgery We will consult neuropsychology to evaluate the patient this may be effective the medications Incisions are clean and dry Abdomen is soft active bowel sounds and nasogastric drainage is decreased Patient is passing large amounts of gas and having 3 bowel movements today Ileus is resolving Patient will need active and very aggressive rehabilitation in order to be functional again Plan Neuropsychology consult DC NG tube Clear liquid diet Will stop morphine and Xanax at this point because patient is pinpoint and acting in the usual fashion Check liver function studies as well as ammonia level Patient will need rehab the next few days for this set him back physically significantly Bilateral breath sounds decreased over the both lung ramon basally Patient is developing atelectasis for he is unwilling to get out of bed walk and work with physical therapy and all Every day he spends more in chair instead of walking will be 1 week longer for rehabilitation 12/17/17 VSS WBC 14 K Patient awake and alert but sometimes confused and talks about some fantasies. Bilateral BS decreased over the R and L base. Patient has some atelectasis due to inactivity and BR Abdomen soft, ileus resolved. Incision clean/dry healing nicely. Patient has had 8 BMs today. Refuses to eat because he "burps" and cigars will come out.... Neuropsychology Dr Juarez consult greatly appreciated Patient is very slaow to work with PT/OT Once on diet can transfer to rehab. 12/19/17 Patient doing better RUQ suprahepatic collection 6x5 cm aspirated successfully by radiology. Abdomen soft, active BS Aorto-bifem open good perfusion of legs SS drainage popliteal upper part of incision Tolerates diet better and encouraged to take p.o. Encouraged to work with PT/OT On Zosyn IV Plan to transfer to rehab once all issues cleared up. Objective: Vital Signs Date Time Temp Pulse Resp B/P (MAP) Pulse Ox O2 Delivery O2 Flow Rate FiO2 12/19/17 07:01 93 12/19/17 06:00 93 12/19/17 04:00 87 12/19/17 03:00 98.4 90 16 109/55 (73) 99 12/19/17 00:00 87 12/19/17 00:00 98.4 99 16 111/55 (73) 93 12/18/17 21:10 21 12/18/17 21:02 96.9 96 16 147/66 (93) 97 12/18/17 20:00 86 12/18/17 20:00 96.9 96 16 147/66 (93) 97 12/18/17 19:00 87 12/18/17 18:21 97.0 86 18 120/60 (80) 97 12/18/17 18:17 97.0 90 18 120/60 (80) 12/18/17 12:29 98.0 74 18 110/58 (75) Result Diagram: 12/18/17 0431 12/18/17 1947 Madi Anna MD Dec 19, 2017 10:44
--- NOTE | 2017-12-19 13:12 | PD.CARD.PN ---
Subjective Subjective Remarks No CP or SOB, weak Objective Medications Current Medications Medications (Trade) Dose Ordered Sig/Tess Route Start Time Stop Time Status Last Admin (Zofran Inj) 4 mg Q6H PRN IV PUSH 12/04/17 15:00 12/17/17 08:21 (Lovenox Inj) 40 mg Q24H SQ 12/05/17 13:00 12/17/17 13:42 (Hytrin) 20 mg HS PO 12/04/17 21:00 Future hold 12/18/17 22:46 (Prinivil) 40 mg DAILY PO 12/05/17 09:00 Future Hold 12/06/17 09:08 (Brethine Inj) 1 mg UNSCH PRN SQ 12/07/17 11:15 (Plavix) 75 mg DAILY PO 12/07/17 12:00 12/19/17 08:47 (Tylenol) 650 mg Q6H PRN PO 12/08/17 08:00 (Albuterol Neb) 2.5 mg Q2HR NEB PRN NEB 12/08/17 08:15 Potassium Chloride 100 ml @ 50 mls/hr Q2H PRN IV 12/08/17 08:15 Potassium Chloride 100 ml @ 50 mls/hr Q2H PRN IV 12/08/17 08:15 12/19/17 00:02 (K-Lyte Cl Eff) 50 meq UNSCH PRN PO 12/08/17 08:15 12/13/17 07:08 Potassium Chloride 100 ml @ 25 mls/hr UNSCH PRN IV 12/08/17 08:15 Potassium Chloride 100 ml @ 50 mls/hr Q2H PRN IV 12/08/17 08:15 Magnesium Sulfate 4 gm/Sodium Chloride 100 ml @ 50 mls/hr UNSCH PRN IV 12/08/17 08:15 (Mag-Ox) 800 mg UNSCH PRN PO 12/08/17 08:15 Magnesium Sulfate 2 gm/Sodium Chloride 100 ml @ 50 mls/hr UNSCH PRN IV 12/08/17 08:15 12/18/17 03:08 (K-Phos) 2,000 mg Q4H PRN PO 12/08/17 08:15 Sodium Phosphate 30 mmol/Sodium Chloride 250 ml @ 42 mls/hr UNSCH PRN IV 12/08/17 08:15 (K-Phos) 2,000 mg UNSCH PRN PO/TUBE 12/08/17 08:15 Potassium Phosphate 30 mmol/ Sodium Chloride 260 ml @ 42 mls/hr UNSCH PRN IV 12/08/17 08:15 12/09/17 07:30 (Percocet 5-325 Mg) 1 tab Q4H PRN PO 12/10/17 10:45 12/19/17 08:50 (Duragesic 25 Mcg Patch.72 Hr) 1 patch Q3D T-DERMAL 12/12/17 13:00 12/18/17 14:01 Miscellaneous Information 1 Q3D T-DERMAL 12/12/17 13:00 12/18/17 13:00 (Davis Ana) 1 lozenge Q4H PRN BUCCAL 12/12/17 15:30 (Cymbalta Dr) 30 mg BID PO 12/17/17 21:00 12/19/17 08:46 (Lopressor) 50 mg BID PO 12/18/17 00:00 12/19/17 08:46 Lactated Ringer's 1,000 ml @ 75 mls/hr [id number] IV 12/18/17 13:45 12/18/17 22:47 Piperacillin Sod/ Tazobactam Sod 50 ml @ 100 mls/hr Q6H IV 12/18/17 17:00 12/19/17 12:21 Vital Signs / I&O Vital Signs Date Time Temp Pulse Resp B/P (MAP) Pulse Ox O2 Delivery O2 Flow Rate FiO2 12/19/17 11:30 98.2 77 18 119/60 (79) 95 12/19/17 08:30 98.3 92 18 123/86 (98) 95 12/19/17 07:01 93 12/19/17 06:00 93 12/19/17 04:00 87 12/19/17 03:00 98.4 90 16 109/55 (73) 99 12/19/17 00:00 87 12/19/17 00:00 98.4 99 16 111/55 (73) 93 12/18/17 21:10 21 12/18/17 21:02 96.9 96 16 147/66 (93) 97 12/18/17 20:00 86 12/18/17 20:00 96.9 96 16 147/66 (93) 97 12/18/17 19:00 87 12/18/17 18:21 97.0 86 18 120/60 (80) 97 12/18/17 18:17 97.0 90 18 120/60 (80) I/O 12/18/17 12/18/17 12/18/17 12/19/17 12/19/17 12/19/17 07:00 15:00 23:00 07:00 15:00 23:00 Intake Total 1755 ml 100 ml 480 ml 1533 ml Output Total 250 ml 635 ml Balance 1505 ml 100 ml 480 ml 898 ml Intake Oral 480 ml 480 ml 350 ml IV Total 1275 ml 100 ml 1183 ml Output Urine Total 250 ml 375 ml Stool Total 10 ml Drainage Total 250 ml # Bowel Movements 4 2 1 Physical Exam GENERAL: In NAD. SKIN: Warm and dry. HEAD: Normocephalic. EYES: No scleral icterus. No injection or drainage. NECK: Supple, trachea midline. No JVD or lymphadenopathy. CARDIOVASCULAR: Regular rate and rhythm without murmurs, gallops, or rubs. RESPIRATORY: Breath sounds equal bilaterally. No accessory muscle use. GASTROINTESTINAL: Abdomen soft, mildly tender, nondistended. MUSCULOSKELETAL: No cyanosis, or edema. Laboratory Laboratory Tests Test 12/18/17 19:47 12/18/17 20:30 Potassium Level 3.1 MEQ/L Stool C. difficile Toxin (PCR) NEGATIVE Stl C. difficile Toxin Epiderm 027 PRESUMPTIVE NEGATIVE Assessment and Plan Problem List: (1) Sinus tachycardia ICD Codes: R00.0 - Tachycardia, unspecified (2) Right upper quadrant abscess ICD Codes: K65.1 - Peritoneal abscess (3) PAD (peripheral artery disease) ICD Codes: I73.9 - Peripheral vascular disease, unspecified Status: Chronic (4) S/P femoral-popliteal bypass surgery ICD Codes: Z95.828 - Presence of other vascular implants and grafts Status: Acute (5) CAD S/P percutaneous coronary angioplasty ICD Codes: I25.10 - Atherosclerotic heart disease of [place] coronary artery without angina pectoris; Z98.61 - Coronary angioplasty status Status: Chronic (6) HTN (hypertension) ICD Codes: I10 - Essential (primary) hypertension Status: Chronic (7) HLD (hyperlipidemia) ICD Codes: E78.5 - Hyperlipidemia, unspecified Status: Chronic Assessment and Plan Rhythm stable, rate now controlled. No angina or CHF. Continue current program including abxs. Increase activity, PT. Smita Minaya MD Dec 19, 2017 13:12
[2017-12-19] MEDS: ENOXAPARIN SODIUM 40 MG/0.4 ML SYRINGE SQ SCH (13:49)
[2017-12-19] MEDS: TERAZOSIN HCL 5 MG CAP PO SCH (22:21)
[2017-12-20] VITALS (27 sets, daily range): BP systolic 108–155; BP diastolic 57–70; PULSE 74–101; RESP 14–20; TEMP 98.1–99; O2SAT 94–98
[2017-12-20] MEDS: PIPERACIL-TAZO 3.375 GM PREMIX 50 ML IV SCH ×5 (00:54→23:00)
[2017-12-20] MEDS: LACTATED RINGER'S 1000 ML INJ 1,000 ML IV SCH ×2 (06:04→15:14)
[2017-12-20] MEDS: DULoxetine HCl DR 30 MG CAP PO SCH ×2 (09:31→20:55)
[2017-12-20] MEDS: METOPROLOL TARTRATE 50 MG TAB PO SCH ×2 (09:31→20:55)
[2017-12-20] MEDS: CLOPIDOGREL 75 MG TAB PO SCH (09:32)
[2017-12-20] MEDS: ONDANSETRON HCL 4 MG/2 ML VIAL IV PUSH PRN (09:34)
--- NOTE | 2017-12-20 14:19 | HHI.PR ---
Subjective Subjective Notes Patient feeling better Objective Vitals/I&O Vital Signs Date Time Temp Pulse Resp B/P (MAP) Pulse Ox O2 Delivery O2 Flow Rate FiO2 12/20/17 13:00 81 12/20/17 12:00 98.1 16 114/57 (76) 96 12/19/17 19:45 21 Labs Date/Time Source Procedure Growth Status 12/18/17 17:14 Abscess Abdomen Gram Stain - Final Resulted 12/18/17 17:14 Wound Culture - Preliminary Escherichia Coli Group D Enterococcus Resulted Radiology CT scan-RUQ abscess Disinhibition Score: 19.18 Aggression Score: 14.00 Lability Score: 18.62 Agitated Behavior Total Score: 18 Cardiovascular: Regular Lungs: Clear Abdomen: Non-distended A/P Assessment and Plan Status post right upper quadrant abscess drainage Patient since then has been improving We will resume regular diet Abdomen is soft minimally distended Mee Craig MD Dec 20, 2017 14:19
[2017-12-20] MEDS: ENOXAPARIN SODIUM 40 MG/0.4 ML SYRINGE SQ SCH (14:37)
[2017-12-20 15:41] LABS: AUTOMATED NEUTROPHIL # 6.7 TH/MM3 (1.8-7.7); BASOPHIL % 0.4 % (0.0-2.0); EOSINOPHIL # 0.1 TH/MM3 (0-0.4); EOSINOPHIL % 0.8 % (0.0-4.0); HEMATOCRIT 24.3 % (39.0-51.0); HEMOGLOBIN 8.4 GM/DL (13.0-17.0); LYMPH % 9.7 % (9.0-44.0); LYMPHOCYTE # 0.8 TH/MM3 (1.0-4.8); MEAN CELL VOLUME 101.1 FL (80.0-100.0); MEAN CORPUSCULAR HEMOGLOBIN 34.8 PG (27.0-34.0); MEAN CORPUSCULAR HGB CONC 34.4 % (32.0-36.0); MEAN PLATELET VOLUME 9.4 FL (7.0-11.0); MONOCYTE # 0.9 TH/MM3 (0-0.9); NEUT % 78.1 % (16.0-70.0); PLATELET COUNT 268 TH/MM3 (150-450); RED CELL DISTRIBUTION WIDTH 16.5 % (11.6-17.2); WHITE BLOOD COUNT 8.6 TH/MM3 (4.0-11.0)
--- NOTE | 2017-12-20 15:59 | PD.CARD.PN ---
Subjective Subjective Remarks No CP or SOB, feels stronger, mild difficulty swallowing Objective Medications Current Medications Medications (Trade) Dose Ordered Sig/Tess Route Start Time Stop Time Status Last Admin (Zofran Inj) 4 mg Q6H PRN IV PUSH 12/04/17 15:00 12/20/17 09:34 (Lovenox Inj) 40 mg Q24H SQ 12/05/17 13:00 12/20/17 14:37 (Hytrin) 20 mg HS PO 12/04/17 21:00 Future hold 12/19/17 22:21 (Prinivil) 40 mg DAILY PO 12/05/17 09:00 Future Hold 12/06/17 09:08 (Brethine Inj) 1 mg UNSCH PRN SQ 12/07/17 11:15 (Plavix) 75 mg DAILY PO 12/07/17 12:00 12/20/17 09:32 (Tylenol) 650 mg Q6H PRN PO 12/08/17 08:00 (Albuterol Neb) 2.5 mg Q2HR NEB PRN NEB 12/08/17 08:15 Potassium Chloride 100 ml @ 50 mls/hr Q2H PRN IV 12/08/17 08:15 Potassium Chloride 100 ml @ 50 mls/hr Q2H PRN IV 12/08/17 08:15 12/19/17 00:02 (K-Lyte Cl Eff) 50 meq UNSCH PRN PO 12/08/17 08:15 12/13/17 07:08 Potassium Chloride 100 ml @ 25 mls/hr UNSCH PRN IV 12/08/17 08:15 Potassium Chloride 100 ml @ 50 mls/hr Q2H PRN IV 12/08/17 08:15 Magnesium Sulfate 4 gm/Sodium Chloride 100 ml @ 50 mls/hr UNSCH PRN IV 12/08/17 08:15 (Mag-Ox) 800 mg UNSCH PRN PO 12/08/17 08:15 Magnesium Sulfate 2 gm/Sodium Chloride 100 ml @ 50 mls/hr UNSCH PRN IV 12/08/17 08:15 12/18/17 03:08 (K-Phos) 2,000 mg Q4H PRN PO 12/08/17 08:15 Sodium Phosphate 30 mmol/Sodium Chloride 250 ml @ 42 mls/hr UNSCH PRN IV 12/08/17 08:15 (K-Phos) 2,000 mg UNSCH PRN PO/TUBE 12/08/17 08:15 Potassium Phosphate 30 mmol/ Sodium Chloride 260 ml @ 42 mls/hr UNSCH PRN IV 12/08/17 08:15 12/09/17 07:30 (Percocet 5-325 Mg) 1 tab Q4H PRN PO 12/10/17 10:45 12/19/17 08:50 (Duragesic 25 Mcg Patch.72 Hr) 1 patch Q3D T-DERMAL 12/12/17 13:00 12/18/17 14:01 Miscellaneous Information 1 Q3D T-DERMAL 12/12/17 13:00 12/18/17 13:00 (Gordon Ana) 1 lozenge Q4H PRN BUCCAL 12/12/17 15:30 (Cymbalta Dr) 30 mg BID PO 12/17/17 21:00 12/20/17 09:31 (Lopressor) 50 mg BID PO 12/18/17 00:00 12/20/17 09:31 Lactated Ringer's 1,000 ml @ 75 mls/hr [id number] IV 12/18/17 13:45 12/20/17 15:14 Piperacillin Sod/ Tazobactam Sod 50 ml @ 100 mls/hr Q6H IV 12/18/17 17:00 12/20/17 11:57 Vital Signs / I&O Vital Signs Date Time Temp Pulse Resp B/P (MAP) Pulse Ox O2 Delivery O2 Flow Rate FiO2 12/20/17 15:00 95 12/20/17 14:59 96 12/20/17 14:00 89 12/20/17 13:00 81 12/20/17 12:00 98.1 84 16 114/57 (76) 96 12/20/17 12:00 81 12/20/17 11:00 82 12/20/17 10:00 96 12/20/17 09:00 76 12/20/17 07:00 93 12/20/17 07:00 98.4 93 16 130/61 (84) 95 12/20/17 06:07 88 12/20/17 05:00 89 12/20/17 04:17 95 12/20/17 03:44 98.6 101 20 131/59 (83) 97 12/20/17 03:00 98 12/20/17 02:08 90 12/20/17 01:00 89 12/20/17 00:45 98.6 92 20 139/69 (92) 97 12/20/17 00:00 95 12/19/17 23:00 92 12/19/17 22:00 92 12/19/17 21:00 96 12/19/17 20:00 101 12/19/17 20:00 98.3 101 20 136/61 (86) 97 12/19/17 19:45 98 21 12/19/17 19:00 102 12/19/17 18:01 92 12/19/17 17:00 88 12/19/17 16:00 88 I/O 12/19/17 12/19/17 12/19/17 12/20/17 12/20/17 12/20/17 07:00 15:00 23:00 07:00 15:00 23:00 Intake Total 1533 ml 50 ml 670 ml 1240 ml 50 ml 1000 ml Output Total 635 ml 750 ml 540 ml Balance 898 ml 50 ml -80 ml 700 ml 50 ml 1000 ml Intake Oral 350 ml 620 ml 240 ml IV Total 1183 ml 50 ml 50 ml 1000 ml 50 ml 1000 ml Output Urine Total 375 ml 600 ml 525 ml Stool Total 10 ml Drainage Total 250 ml 150 ml 15 ml # Bowel Movements 1 0 1 Physical Exam GENERAL: In NAD. SKIN: Warm and dry. HEAD: Normocephalic. EYES: No scleral icterus. No injection or drainage. NECK: Supple, trachea midline. No JVD or lymphadenopathy. CARDIOVASCULAR: Regular rate and rhythm without murmurs, gallops, or rubs. RESPIRATORY: Breath sounds equal bilaterally. No accessory muscle use. GASTROINTESTINAL: Abdomen soft, mildly tender, nondistended. MUSCULOSKELETAL: No cyanosis, or edema. Laboratory Laboratory Tests Test 12/20/17 14:48 White Blood Count 8.6 TH/MM3 Red Blood Count 2.40 MIL/MM3 Hemoglobin 8.4 GM/DL Hematocrit 24.3 % Mean Corpuscular Volume 101.1 FL Mean Corpuscular Hemoglobin 34.8 PG Mean Corpuscular Hemoglobin Concent 34.4 % Red Cell Distribution Width 16.5 % Platelet Count 268 TH/MM3 Mean Platelet Volume 9.4 FL Neutrophils (%) (Auto) 78.1 % Lymphocytes (%) (Auto) 9.7 % Monocytes (%) (Auto) 11.0 % Eosinophils (%) (Auto) 0.8 % Basophils (%) (Auto) 0.4 % Neutrophils # (Auto) 6.7 TH/MM3 Lymphocytes # (Auto) 0.8 TH/MM3 Monocytes # (Auto) 0.9 TH/MM3 Eosinophils # (Auto) 0.1 TH/MM3 Basophils # (Auto) 0.0 TH/MM3 CBC Comment DIFF FINAL Differential Comment Assessment and Plan Problem List: (1) Sinus tachycardia ICD Codes: R00.0 - Tachycardia, unspecified (2) Right upper quadrant abscess ICD Codes: K65.1 - Peritoneal abscess (3) PAD (peripheral artery disease) ICD Codes: I73.9 - Peripheral vascular disease, unspecified Status: Chronic (4) S/P femoral-popliteal bypass surgery ICD Codes: Z95.828 - Presence of other vascular implants and grafts Status: Acute (5) CAD S/P percutaneous coronary angioplasty ICD Codes: I25.10 - Atherosclerotic heart disease of [place] coronary artery without angina pectoris; Z98.61 - Coronary angioplasty status Status: Chronic (6) HTN (hypertension) ICD Codes: I10 - Essential (primary) hypertension Status: Chronic (7) HLD (hyperlipidemia) ICD Codes: E78.5 - Hyperlipidemia, unspecified Status: Chronic Assessment and Plan No new cardiac issues. Rhythm stays stable, sinus, rate controlled. No angina or CHF. Continue current program including abxs. May need swallowing evaluation. Increase activity, PT. Smita Minaya MD Dec 20, 2017 15:59
[2017-12-20] MEDS: POTASSIUM CHLOR 20 MEQ PREMIX 100 ML IV PRN ×4 (16:00→22:30)
[2017-12-20 16:06] LABS: BICARBONATE 28.6 MEQ/L (21.0-32.0); CALCIUM 7.6 MG/DL (8.5-10.1); CREATININE 0.78 MG/DL (0.60-1.30)
[2017-12-20] MEDS ORDERED: POTASSIUM CHLORIDE 20 MEQ PWD PACKET PO ONE (17:45)
[2017-12-20] MEDS: TERAZOSIN HCL 5 MG CAP PO SCH (20:55)
[2017-12-21] VITALS (27 sets, daily range): BP systolic 104–169; BP diastolic 57–76; PULSE 71–90; RESP 16–18; TEMP 98.2–98.7; O2SAT 92–97
[2017-12-21] MEDS: PIPERACIL-TAZO 3.375 GM PREMIX 50 ML IV SCH ×4 (05:00→23:00)
[2017-12-21] MEDS ORDERED: IOHEXOL 350 MG/ML 10 ML VIAL (for RAD DIAG) IVCONTRAST ONE (09:28)
[2017-12-21] MEDS: CLOPIDOGREL 75 MG TAB PO SCH (09:42)
[2017-12-21] MEDS: DULoxetine HCl DR 30 MG CAP PO SCH ×2 (09:42→21:00)
[2017-12-21] MEDS: METOPROLOL TARTRATE 50 MG TAB PO SCH ×2 (09:43→21:00)
--- NOTE | 2017-12-21 09:49 | RADRPT ---
EXAM DATE/TIME: 12/21/2017 09:08 [facility] COMPARISON: CT ABDOMEN & PELVIS W CONTRAST, December 18, 2017, 11:59. INDICATIONS : Abdomen pain; followup abnormal fluid collection seen on prior study and evaluate for abscess. IV CONTRAST: 80 cc Omnipaque 350 (iohexol) IV ORAL CONTRAST: No oral contrast ingested. RADIATION DOSE: 10.48 CTDIvol (mGy) MEDICAL HISTORY : Hypertension. Cardiovascular disease SURGICAL HISTORY : cardiac stent. ENCOUNTER: Initial ACUITY: 1 day PAIN SCALE: 5/10 LOCATION: Bilateral abdomen TECHNIQUE: Volumetric scanning of the abdomen and pelvis was performed. Using automated exposure control and ad justment of the mA and/or kV according to patient size, radiation dose was kept as low as reasonably achievable to obtain optimal diagnostic quality images. DICOM format image data is available electro nically for review and comparison. FINDINGS: LOWER LUNGS: Stable pericardial calcifications are again noted and air are coronary calcifications as well. Small bilateral pleural effusions are again noted right greater than left with mild elevation. LIVER: Homogeneous density without lesion. There is no dilation of the biliary tree. No calcified gallston es. SPLEEN: Normal size without lesion. PANCREAS: Within normal limits. KIDNEYS: Normal in size and shape. There is no mass, stone or hydronephrosis. ADRENAL GLANDS: Within normal limits. VASCULAR: Severe atherosclerotic changes are noted with calcification and mild dilatation. The left common cruz c artery remains occluded in appearance but unchanged. The patient is again noted to be status post a ortobifemoral bypass grafting. The grafts are patent. There is no focal aneurysm. BOWEL/MESENTERY: The previously noted loculated fluid and air collection below the right hemidiaphragm has decreased i n size and now measures approximately 9 x 5.1 cm in greatest transverse and AP diameter compared to a pproximately 11.5 x 6.5 cm on the prior study. There is no definite free air identified. There are todd wel loops along the lateral liver. A mild nonspecific bowel gas pattern remains with multiple loops o f non-dilated air containing small bowel with small air-fluid levels. The previously noted abnormal f luid collection in the pelvis is not significant changed. This now measures approximately 6.3 x 4.7 c m in diameter again contains a small calcification along the posterior right lateral margin. A small amount of free fluid is noted in the pelvis. There are multiple diverticuli again noted greatest in t he sigmoid colon. ABDOMINAL WALL: Within normal limits. RETROPERITONEUM: There is no lymphadenopathy. BLADDER: No wall thickening or mass. REPRODUCTIVE: Within normal limits. INGUINAL: There is no lymphadenopathy or hernia. MUSCULOSKELETAL: Within normal limits for patient age. CONCLUSION: 1. Mild interval decrease in the size of the loculated air-fluid collection below the right hemidiaph ragm with no definite free air now identified. 2. Stable appearance of the abnormal cystic collection in the pelvis. 3. Mildly nonspecific bowel gas pattern again noted with small amount of free fluid in the pelvis. Th ere is moderate diverticulosis again noted. 4. Small pleural effusions again noted right greater than left with mild consolidation in the posteri or lung bases. Main Souza MD on December 21, 2017 at 9:37 Board Certified Radiologist. This report was verified electronically.
[2017-12-21] MEDS: fentaNYL 25 MCG/HR PATCH T-DERMAL SCH (12:30)
[2017-12-21] MEDS: REMOVE OLD PATCH T-DERMAL SCH (12:30)
[2017-12-21] MEDS: ENOXAPARIN SODIUM 40 MG/0.4 ML SYRINGE SQ SCH (12:31)
[2017-12-21] MEDS: LACTATED RINGER'S 1000 ML INJ 1,000 ML IV SCH ×2 (17:14→21:01)
[2017-12-21] MEDS ORDERED: LIDOCAINE HCL 1% 20 ML VIAL ONE (17:51)
[2017-12-21] MEDS ORDERED: MIDAZOLAM HCL 2 MG/2 ML VIAL ONE (17:58)
[2017-12-21] MEDS ORDERED: fentaNYL CITRATE 250 MCG/5 ML AMP ONE (17:59)
--- NOTE | 2017-12-21 18:49 | PD.RAD ---
Post CT Procedure Prog Note Pre Procedure Diagnosis: (1) Right upper quadrant abscess Post Procedure Diagnosis: (1) Right upper quadrant abscess Procedure Date: Dec 21, 2017 Supervising Radiologist: Sidnye Mehta Anesthesia: Local, Analgesia, Conscious Sedation Plan of Activity Patient to Unit: Critical Care Patient Condition: Good See PACS Report for procedural detail/treatment Drainage Procedure Procedure 1 Imaging Guidance: CT Procedure Type: Abscess Drainage (ruq) Procedure: Placement Arabic: 8 Drainage: Suction (Accordian) Fluid Description: Purulent Sidney Mehta MD Dec 21, 2017 18:49
--- NOTE | 2017-12-21 19:54 | HHI.PR ---
Subjective Subjective Notes Feeling better Has BM Objective Vitals/I&O Vital Signs Date Time Temp Pulse Resp B/P (MAP) Pulse Ox O2 Delivery O2 Flow Rate FiO2 12/21/17 15:30 98.7 83 16 139/76 (97) 97 12/21/17 13:21 21 Labs Laboratory Tests Test 12/21/17 04:31 Potassium Level 3.4 Date/Time Source Procedure Growth Status 12/18/17 17:14 Abscess Abdomen Gram Stain - Final Resulted 12/18/17 17:14 Wound Culture - Preliminary Escherichia Coli Enterococcus Faecalis Gram Negative Cristian Resulted Radiology CT scan-RUQ abscess Disinhibition Score: 19.18 Aggression Score: 14.00 Lability Score: 14.00 Agitated Behavior Total Score: 17 A/P Assessment and Plan Status post right upper quadrant abscess drainage-drain came out inadvertently yesterday Re-CT shows abscess d/w IR will place new drain regular diet Abdomen is soft minimally distended Mee Craig MD Dec 21, 2017 19:54
[2017-12-21] MEDS: TERAZOSIN HCL 5 MG CAP PO SCH (21:00)
[2017-12-22] VITALS (25 sets, daily range): BP systolic 126–178; BP diastolic 0–83; PULSE 69–92; RESP 16–20; TEMP 97.6–98.7; O2SAT 93–98
[2017-12-22] MEDS: PIPERACIL-TAZO 3.375 GM PREMIX 50 ML IV SCH ×4 (05:00→23:00)
[2017-12-22] MEDS: DULoxetine HCl DR 30 MG CAP PO SCH ×2 (09:07→21:09)
[2017-12-22] MEDS: METOPROLOL TARTRATE 50 MG TAB PO SCH ×2 (09:07→21:09)
[2017-12-22] MEDS: CLOPIDOGREL 75 MG TAB PO SCH (09:08)
[2017-12-22] MEDS: LACTATED RINGER'S 1000 ML INJ 1,000 ML IV SCH (09:15)
--- NOTE | 2017-12-22 09:22 | RADRPT ---
EXAM DATE/TIME: 12/21/2017 18:15 [facility] COMPARISON: No previous studies available for comparison. INDICATIONS : Abscess. SEDATION TIME: 30 minutes MEDICATION(S): 1.) 2 mg midazolam (Versed) IV 2.) 250 mcg fentanyl (Sublimaze) IV DEVICE(S): 1.) 8 Fr Skater FLUID: Total volume of 20 cc of cloudy, yellow fluid was removed. Fluid was discarded. MEDICAL HISTORY : Myocardial infarction. Hypertension. SURGICAL HISTORY : stent placement, previous drain placement ENCOUNTER: Initial ACUITY: 1 day PAIN SCORE: 0/10 LOCATION: Bilateral abdomen PROCEDURE: 1.) Conscious sedation with continuous EKG and oximetry monitoring. 2.) EKG and oximetry remained stable throughout the procedure. PROCEDURE : 1. CT guided drainage of the right upper quadrant abscess 2. Conscious sedation with continuous EKG and oximetry monitoring. The risks, benefits and alternatives to the procedure were explained and verbal and written consent w as obtained. Using automated exposure control and adjustment of the mA and/or kV according to patient size, radiation dose was kept as low as reasonably achievable to obtain optimal diagnostic quality i mages. The site was prepped in sterile fashion. Full sterile technique was used, including cap, ma sk, sterile gloves and gown and a large sterile sheet. Hand hygiene and 2% chlorhexidine and/or beta dine/alcohol prep was utilized per protocol for cutaneous antisepsis. The skin and subcutaneous tiss ues were infiltrated with local anesthetic solution. DICOM format image data is available electronic ally for review and comparison. Using CT guidance the prescribed site was localized. A micropuncture needle was advanced into the co llection. Position was confirmed with CT. Drainage was performed using the prescribed catheter The patient tolerated the procedure well and there were no complications. Conscious sedation was per formed with the prescribed dosages and duration as above in the presence of an independent trained ra diology nurse to assist in the monitoring of the patient. EKG and oximetry remained stable throughou t the procedure. The patient tolerated the procedure well and there were no complications. The patient was sent to pos t anesthesia recovery in stable condition. CONCLUSION: Uncomplicated CT guided drainage. Sidney Mehta MD on December 22, 2017 at 9:16 Board Certified Radiologist. This report was verified electronically.
[2017-12-22] MEDS: ENOXAPARIN SODIUM 40 MG/0.4 ML SYRINGE SQ SCH (13:16)
--- NOTE | 2017-12-22 18:49 | HHI.PR ---
Subjective Subjective Notes feeling better,tolerating regular diet has loose BM Objective Vitals/I&O Vital Signs Date Time Temp Pulse Resp B/P (MAP) Pulse Ox O2 Delivery O2 Flow Rate FiO2 12/22/17 15:30 97.6 77 18 129/0 (43) 95 12/22/17 07:54 21 Labs Date/Time Source Procedure Growth Status 12/18/17 17:14 Abscess Abdomen Gram Stain - Final Resulted 12/18/17 17:14 Wound Culture - Preliminary Escherichia Coli Enterococcus Faecalis Enterobacter Cloacae Resulted Radiology CT scan-RUQ abscess Disinhibition Score: 14.00 Aggression Score: 14.00 Lability Score: 14.00 Agitated Behavior Total Score: 14 Cardiovascular: Regular Lungs: Clear Abdomen: Post-op tenderness A/P Assessment and Plan new drain placed by IR- may need fistulogram r/o c diff continue diet Mee Craig MD Dec 22, 2017 18:49
[2017-12-22] MEDS: TERAZOSIN HCL 5 MG CAP PO SCH (21:08)
[2017-12-23] VITALS (29 sets, daily range): BP systolic 109–158; BP diastolic 5–73; PULSE 6–97; RESP 16–18; TEMP 98.4–99.5; O2SAT 6–100
[2017-12-23] MEDS: LACTATED RINGER'S 1000 ML INJ 1,000 ML IV SCH ×2 (01:41→18:27)
[2017-12-23 05:33] LABS: AUTOMATED NEUTROPHIL # 4.7 TH/MM3 (1.8-7.7); BASOPHIL # 0.1 TH/MM3 (0-0.2); BASOPHIL % 0.7 % (0.0-2.0); EOSINOPHIL # 0.1 TH/MM3 (0-0.4); EOSINOPHIL % 1.1 % (0.0-4.0); HEMATOCRIT 23.3 % (39.0-51.0); HEMOGLOBIN 7.9 GM/DL (13.0-17.0); LYMPH % 12.5 % (9.0-44.0); LYMPHOCYTE # 0.8 TH/MM3 (1.0-4.8); MEAN CELL VOLUME 99.5 FL (80.0-100.0); MEAN CORPUSCULAR HEMOGLOBIN 33.6 PG (27.0-34.0); MEAN CORPUSCULAR HGB CONC 33.7 % (32.0-36.0); MEAN PLATELET VOLUME 9.4 FL (7.0-11.0); MONO % 15.4 % (0.0-8.0); NEUT % 70.3 % (16.0-70.0); PLATELET COUNT 312 TH/MM3 (150-450); RED BLOOD COUNT 2.34 MIL/MM3 (4.50-5.90); RED CELL DISTRIBUTION WIDTH 16.3 % (11.6-17.2); WHITE BLOOD COUNT 6.7 TH/MM3 (4.0-11.0)
[2017-12-23] MEDS: PIPERACIL-TAZO 3.375 GM PREMIX 50 ML IV SCH ×4 (05:39→23:00)
[2017-12-23 06:00] LABS: BICARBONATE 26.1 MEQ/L (21.0-32.0); CALCIUM 7.6 MG/DL (8.5-10.1); CREATININE 0.83 MG/DL (0.60-1.30)
[2017-12-23] MEDS: METOPROLOL TARTRATE 50 MG TAB PO SCH ×2 (08:12→21:16)
[2017-12-23] MEDS: POTASSIUM CHLOR 20 MEQ PREMIX 100 ML IV SCH ×2 (08:12→10:40)
[2017-12-23] MEDS: DULoxetine HCl DR 30 MG CAP PO SCH ×2 (08:12→21:16)
[2017-12-23] MEDS: CLOPIDOGREL 75 MG TAB PO SCH (08:12)
--- NOTE | 2017-12-23 11:02 | PD.WCN.NOT ---
Wound Consult Description: Received consult from Doctor Craig for evaluation of pressure ulcer to sacral area. Communicated with: RN Eugenio Pandya and Doctor Franklin Recommendation: 1.Please cleanse wound cleanse wound to sacral area with normal saline and pat dry. 2. Apply Maxorb II (calcium alginate) to wound bed please do not let over lap to intact skin 3. Apply Calazime skin protectant paste to periwound circumferentialy 4. Apply Cavilon skin barrier film spray to intact skin before applying bordered gauze dressing 5. Change dressing every other day or PRN if saturated or dislodged. 6. Please order air cushion from [facility] for patient to sit on while up in chair and limit time sitting up to 2 hours 7. Please obtain alternating pressure pump for CIC bed 8. Encourage and assist patient with repositioning in bed every 2 hours to offload pressure from sacral area. While in chair patient needs to be shifting weight every 15 minutes. Additional Information: Patient seen on 4th floor [facility] for pressure ulcer evaluation of sacral area.Patient is sitting in chair when leader writer arrived. Patient is Alert and oriented x3 and able to stand with the assistance of a walker and leader writer for wound assessment. Brief was pulled down to reveal loose mucous like stool with is brown/green in color in brief and in bilateral inner buttocks. Patient was cleansed with bath wipe. Wound is noted at the tip of the R side of the sacrum measuring 3cm x 1cm x0.2cm. Wound margins are well defined. Wound has an irregular oval shape. Wound bed presents with ~80% adipose tissue and ~20% pink.periwound presents with blanchable erythema and denuded peeling skin at 3 o 'clock. Wound was cleansed with normal saline and patted dry. Calazime skin protectant paste was applied to periwound. Applied Maxorb II just over open wound. Applied Cavilon skin barrier film spray was applied to intact skin before securing secondary dressing bordered gauze. Ch[facility] Ley [facility] Dec 23, 2017 11:02
--- NOTE | 2017-12-23 13:38 | PD.CAR.PN ---
CVT Progress Note Subjective/Hospital Course: 12/05/2017 As above noted in the H&P this patient has severe diffuse peripheral vascular disease with claudication at rest Patient has near total occlusion of common iliac arteries and then occlusion of the external iliac artery more distally with severe common femoral near occlusive disease and multilevel stenosis of both SFAs in the range of 90% Proximal popliteal arteries are equally diseased and trifurcations are stenosed in both legs Dominant vessel to left and right foot is anterior tibial artery and rest of the vessels are bits and pieces segmented throughout Patient needs aortobifemoral bypass and essentially bilateral femoral-popliteal bypass but his left leg is more symptomatic even at rest Patient will undergo aortobifemoral bypass and possibly left femoral-popliteal bypass tomorrow There is a small chance that aorta will be so calcified that it would be hard to enter. At that point we would convert to axillobifemoral bypass Discussed with patient at length the benefits and the risks of the procedure 12/07/2017 Patient is status post aortobifemoral bypass and left femoral-popliteal bypass with endarterectomy of the aorta and external iliac/common femoral arteries Patient is extubated since yesterday awake alert and oriented Pain appears to be well controlled Hemodynamically patient is stable requiring small amount of Levophed Abdomen soft few bowel sounds incision is clean and dry Groins are clean dry patient has excellent distal dopplerable pulses in feet are warm We will continue IV hydration n.p.o. status except for medication and general support Would keep patient on bedrest for at least another day considering the extent of surgery his age and comorbidities Doing very well at this time [employer] help greatly appreciated 12/08/2017 Patient doing very well this morning Awake alert and oriented Abdomen soft incision clean and dry, few bowel sounds Excellent distal pulses in both legs. Feet are warm well perfused good capillary refill Out of bed Patient at this point is fluid overloaded and being third day should start mobilizing third space. We will give Lasix to help along and decrease IV rate to maintenance All things equal patient will be able to leave the unit tomorrow 12/09/2017 Patient doing very well Diuresis fair amount of urine and decreased in third space with some volume extracellular contraction Neurologically remains intact Abdomen soft incision clean and dry Bilateral femoral pulses palpable bilateral popliteal by Doppler Ray pedis posterior tibial by Doppler Feet are nice and warm and patient is well-perfused as opposed to before surgery Still remains somewhat hypervolemic but is gradually going to mobilize Plan Out of bed and ambulate Aggressive physical and occupational therapy Transfer to floor Remove arterial line and central line and dismantle the patient of unnecessary equipment We will start on clear liquids 12/10/2017 Patient doing well at this time Incision abdomen clean and dry Groin incisions clean and dry excellent bilateral perfusion Abdomen soft some hypoactive bowel sounds still persistent partial ileus Remains on clear liquids and will not advance until patient passes gas and has bowel movement Somewhat nauseous Plan Out of bed patient needs to ambulate more actively Adequate change in pain control Urology consult patient has significant swelling of the scrotum and penile skin obviously to do the dependent portion but this may be interfering with the removal of the Parikh catheter [facility] as diet is advanced and patient is well 12/11/2017 Patient doing okay at this time Abdominal groin and leg incisions clean and dry Great pulse in the left femoropopliteal graft and bilateral palpable femoral pulses Bilateral good breath sounds with some crackles over the bases Abdomen is distended and patient has persistent ileus which is not uncommon after large retroperitoneal surgery of the sorts We will reinsert NG tube the patient decompresses for if he throws up he will aspirate and then will have much bigger problem on her hands Medication can still be given through the tube Hemoglobin 7.9, in face of coronary disease will transfuse 1 unit PRBC Patient needs to ambulate and be up and around Patient is probably somewhat fluid overloaded at this point based on clinical indices, generalized edema and lung exam with some crackles over the bases. On the other hand it is very hard to tell from the intake output summaries for these are completely incorrect and unreliable 12/12/2017 Patient doing better this morning Incisions are clean and dry Excellent distal pulses Patient still has some degree of generalized edema. Abdomen is soft hypoactive bowel sounds somewhat tender on palpation but patient is more complaining by the NG tube and is extremely anxious Persistent postoperative ileus although bowel movement yesterday Had to place an NG tube which drained about a liter over the last 24 hours of green succus entericus We will leave the NG tube until ileus resolves With retroperitoneal surgery ileus is common and only time will fix it Decrease IV rate and place on daily Lasix 12/13/2017 Patient better today Awake alert but somewhat unusual affect very anxious had hallucinations We will be seeing Dilyasid because this might be the culprit and switched to morphine Excellent proximal and distal pulses Incisions are clean and dry abdomen is softer but still moderately distended with very hypoactive bowel sounds consistent with prolonged paralytic ileus in face of extensive abdominal surgery NG tube over a liter in last 24 hours however this is been the cause of problems because of nurses inability to properly manage the NG tube On top of it NG tube somehow "came out" and needs to be reinserted KUB confirms paralytic ileus which is of course combination of surgery and narcotics administration for mobilization of the patient I am also worried about the ileus resolving but I am worried about patient developing atelectasis and eventually pneumonia it is absolutely Critical the patient walks in the choroid hours and have time devoted to him by physical therapy as well as nursing, rather than laying in bed 12/14/2017 Patient doing much better today He was very confused yesterday but much better today Abdomen soft hypoactive bowel sounds distention definitely decreased Ileus slowly resolving patient passing gas but no bowel movements NG tube about 800 cc over 24 hours We will keep NG tube for another day patient needs to ambulate and be out of bed to prevent pneumonia Probably NG tube will come out tomorrow all things equal 12/15/2017 Patient awake alert and oriented and slightly confused Abdomen soft hypoactive bowel sounds definitely decompressed but on percussion tympanic with obviously small bowel and colonic ileus We will give some laxatives to help patient along Cannot remove the NG tube to patient passes gas and has good bowel movement Incisions are clean and dry and patient has good peripheral perfusion 12/16/2017 Patient is a febrile White count elevated 14,000 with some left shift due to bilateral atelectasis left more than the right He is awake alert and oriented in time space and person Patient has a very unusual affect with lots of grimacing and inability to truly express very well although he answers simple questions normally Appears has encephalopathy on top of patient's early cognitive deficits from time before the surgery We will consult neuropsychology to evaluate the patient this may be effective the medications Incisions are clean and dry Abdomen is soft active bowel sounds and nasogastric drainage is decreased Patient is passing large amounts of gas and having 3 bowel movements today Ileus is resolving Patient will need active and very aggressive rehabilitation in order to be functional again Plan Neuropsychology consult DC NG tube Clear liquid diet Will stop morphine and Xanax at this point because patient is pinpoint and acting in the usual fashion Check liver function studies as well as ammonia level Patient will need rehab the next few days for this set him back physically significantly Bilateral breath sounds decreased over the both lung ramon basally Patient is developing atelectasis for he is unwilling to get out of bed walk and work with physical therapy and all Every day he spends more in chair instead of walking will be 1 week longer for rehabilitation 12/17/17 VSS WBC 14 K Patient awake and alert but sometimes confused and talks about some fantasies. Bilateral BS decreased over the R and L base. Patient has some atelectasis due to inactivity and BR Abdomen soft, ileus resolved. Incision clean/dry healing nicely. Patient has had 8 BMs today. Refuses to eat because he "burps" and cigars will come out.... Neuropsychology Dr Juarez consult greatly appreciated Patient is very slaow to work with PT/OT Once on diet can transfer to rehab. 12/19/17 Patient doing better RUQ suprahepatic collection 6x5 cm aspirated successfully by radiology. Abdomen soft, active BS Aorto-bifem open good perfusion of legs SS drainage popliteal upper part of incision Tolerates diet better and encouraged to take p.o. Encouraged to work with PT/OT On Zosyn IV Plan to transfer to rehab once all issues cleared up. 12/23/2017 Patient definitely doing better at this time Bilateral breath sounds good inspiratory effort Patient moving around with ease Having regular bowel movements semi-formed Abdomen soft active bowel sounds in incision is clean and dry Leg incision is clean well-healed As noted above patient developed right upper quadrant abscess and I believe patient must have had a perforated diverticulum in the right upper quadrant as a result of ileus and bowel dilatation for he does have diffuse diverticula throughout the bowel also on the right side. This is almost completely sealed off at this time for there is no gas in it however drain is to remain in place for the time being until this completely disappears As far as this closing and disappearing nutritional status is of paramount importance Unfortunately patient is not taking well p.o. for he says that food does not taste good We will place on some Reglan for gastric motility the patient does have chronic gastroparesis Continue antibiotics In addition patient is a tiny decubitus on his sacrum and wound care input and management is greatly appreciated Objective: Vital Signs Date Time Temp Pulse Resp B/P (MAP) Pulse Ox O2 Delivery O2 Flow Rate FiO2 12/23/17 11:20 73 12/23/17 11:01 98.8 6 18 145/5 (51) 100 12/23/17 11:00 86 12/23/17 10:00 70 12/23/17 09:00 72 12/23/17 08:15 98.4 81 18 124/58 (80) 100 12/23/17 08:00 84 12/23/17 07:01 85 12/23/17 06:00 82 12/23/17 05:00 80 12/23/17 04:00 80 12/23/17 03:00 98.7 81 16 125/61 (82) 93 12/23/17 03:00 80 12/23/17 02:00 78 12/23/17 01:00 76 12/23/17 00:00 98.6 79 16 124/57 (79) 97 12/23/17 00:00 80 12/22/17 23:00 77 12/22/17 22:24 21 12/22/17 22:00 78 12/22/17 21:01 80 143/67 (92) 97 12/22/17 21:00 80 12/22/17 20:00 98.6 90 16 178/79 (112) 98 12/22/17 20:00 92 12/22/17 19:00 79 12/22/17 18:00 82 12/22/17 17:00 84 12/22/17 15:30 97.6 77 18 129/0 (43) 95 12/22/17 15:30 72 12/22/17 15:00 72 12/22/17 14:00 80 Labs: Laboratory Tests Test 12/23/17 03:45 White Blood Count 6.7 TH/MM3 (4.0-11.0) Red Blood Count 2.34 MIL/MM3 (4.50-5.90) Hemoglobin 7.9 GM/DL (13.0-17.0) Hematocrit 23.3 % (39.0-51.0) Mean Corpuscular Volume 99.5 FL (80.0-100.0) Mean Corpuscular Hemoglobin 33.6 PG (27.0-34.0) Mean Corpuscular Hemoglobin Concent 33.7 % (32.0-36.0) Red Cell Distribution Width 16.3 % (11.6-17.2) Platelet Count 312 TH/MM3 (150-450) Mean Platelet Volume 9.4 FL (7.0-11.0) Neutrophils (%) (Auto) 70.3 % (16.0-70.0) Lymphocytes (%) (Auto) 12.5 % (9.0-44.0) Monocytes (%) (Auto) 15.4 % (0.0-8.0) Eosinophils (%) (Auto) 1.1 % (0.0-4.0) Basophils (%) (Auto) 0.7 % (0.0-2.0) Neutrophils # (Auto) 4.7 TH/MM3 (1.8-7.7) Lymphocytes # (Auto) 0.8 TH/MM3 (1.0-4.8) Monocytes # (Auto) 1.0 TH/MM3 (0-0.9) Eosinophils # (Auto) 0.1 TH/MM3 (0-0.4) Basophils # (Auto) 0.1 TH/MM3 (0-0.2) CBC Comment DIFF FINAL Differential Comment Blood Urea Nitrogen 6 MG/DL (7-18) Creatinine 0.83 MG/DL (0.60-1.30) Random Glucose 71 MG/DL (74-106) Calcium Level 7.6 MG/DL (8.5-10.1) Sodium Level 141 MEQ/L (136-145) Potassium Level 3.0 MEQ/L (3.5-5.1) Chloride Level 105 MEQ/L (98-107) Carbon Dioxide Level 26.1 MEQ/L (21.0-32.0) Anion Gap 10 MEQ/L (5-15) Estimat Glomerular Filtration Rate 90 ML/MIN (>89) Result Diagram: 12/23/1734412/23/17344 (1) Sinus tachycardia (2) Right upper quadrant abscess (3) PAD (peripheral artery disease) (4) S/P femoral-popliteal bypass surgery (5) CAD S/P percutaneous coronary angioplasty (6) HTN (hypertension) (7) HLD (hyperlipidemia) Madi Anna MD Dec 23, 2017 13:38
--- NOTE | 2017-12-23 14:05 | PD.CARD.PN ---
Subjective Subjective Remarks No CP or SOB, feels better Objective Medications Current Medications Medications (Trade) Dose Ordered Sig/Tess Route Start Time Stop Time Status Last Admin (Zofran Inj) 4 mg Q6H PRN IV PUSH 12/04/17 15:00 12/20/17 09:34 (Lovenox Inj) 40 mg Q24H SQ 12/05/17 13:00 12/22/17 13:16 (Hytrin) 20 mg HS PO 12/04/17 21:00 Future hold 12/22/17 21:08 (Prinivil) 40 mg DAILY PO 12/05/17 09:00 Future Hold 12/06/17 09:08 (Brethine Inj) 1 mg UNSCH PRN SQ 12/07/17 11:15 (Plavix) 75 mg DAILY PO 12/07/17 12:00 12/23/17 08:12 (Tylenol) 650 mg Q6H PRN PO 12/08/17 08:00 (Albuterol Neb) 2.5 mg Q2HR NEB PRN NEB 12/08/17 08:15 Potassium Chloride 100 ml @ 50 mls/hr Q2H PRN IV 12/08/17 08:15 Potassium Chloride 100 ml @ 50 mls/hr Q2H PRN IV 12/08/17 08:15 12/20/17 22:30 (K-Lyte Cl Eff) 50 meq UNSCH PRN PO 12/08/17 08:15 12/13/17 07:08 Potassium Chloride 100 ml @ 25 mls/hr UNSCH PRN IV 12/08/17 08:15 Potassium Chloride 100 ml @ 50 mls/hr Q2H PRN IV 12/08/17 08:15 Magnesium Sulfate 4 gm/Sodium Chloride 100 ml @ 50 mls/hr UNSCH PRN IV 12/08/17 08:15 (Mag-Ox) 800 mg UNSCH PRN PO 12/08/17 08:15 Magnesium Sulfate 2 gm/Sodium Chloride 100 ml @ 50 mls/hr UNSCH PRN IV 12/08/17 08:15 12/18/17 03:08 (K-Phos) 2,000 mg Q4H PRN PO 12/08/17 08:15 Sodium Phosphate 30 mmol/Sodium Chloride 250 ml @ 42 mls/hr UNSCH PRN IV 12/08/17 08:15 (K-Phos) 2,000 mg UNSCH PRN PO/TUBE 12/08/17 08:15 Potassium Phosphate 30 mmol/ Sodium Chloride 260 ml @ 42 mls/hr UNSCH PRN IV 12/08/17 08:15 12/09/17 07:30 (Percocet 5-325 Mg) 1 tab Q4H PRN PO 12/10/17 10:45 12/19/17 08:50 (Duragesic 25 Mcg Patch.72 Hr) 1 patch Q3D T-DERMAL 12/12/17 13:00 12/21/17 12:30 Miscellaneous Information 1 Q3D T-DERMAL 12/12/17 13:00 12/21/17 12:30 ([place] Ana) 1 lozenge Q4H PRN BUCCAL 12/12/17 15:30 (C[address]) 30 mg BID PO 12/17/17 21:00 12/23/17 08:12 (Lopressor) 50 mg BID PO 12/18/17 00:00 12/23/17 08:12 Lactated Ringer's 1,000 ml @ 75 mls/hr [id number] IV 12/18/17 13:45 12/23/17 01:41 Piperacillin Sod/ Tazobactam Sod 50 ml @ 100 mls/hr Q6H IV 12/18/17 17:00 12/23/17 10:40 Vital Signs / I&O Vital Signs Date Time Temp Pulse Resp B/P (MAP) Pulse Ox O2 Delivery O2 Flow Rate FiO2 12/23/17 11:20 73 12/23/17 11:01 98.8 6 18 145/5 (51) 100 12/23/17 11:00 86 12/23/17 10:00 70 12/23/17 09:00 72 12/23/17 08:15 98.4 81 18 124/58 (80) 100 12/23/17 08:00 84 12/23/17 07:01 85 12/23/17 06:00 82 12/23/17 05:00 80 12/23/17 04:00 80 12/23/17 03:00 98.7 81 16 125/61 (82) 93 12/23/17 03:00 80 12/23/17 02:00 78 12/23/17 01:00 76 12/23/17 00:00 98.6 79 16 124/57 (79) 97 12/23/17 00:00 80 12/22/17 23:00 77 12/22/17 22:24 21 12/22/17 22:00 78 12/22/17 21:01 80 143/67 (92) 97 12/22/17 21:00 80 12/22/17 20:00 98.6 90 16 178/79 (112) 98 12/22/17 20:00 92 12/22/17 19:00 79 12/22/17 18:00 82 12/22/17 17:00 84 12/22/17 15:30 97.6 77 18 129/0 (43) 95 12/22/17 15:30 72 12/22/17 15:00 72 I/O 12/22/17 12/22/17 12/22/17 12/23/17 12/23/17 12/23/17 07:00 15:00 23:00 07:00 15:00 23:00 Intake Total 360 ml 1561 ml 1100 ml 578 ml Output Total 640 ml 550 ml 650 ml Balance -280 ml 1011 ml 1100 ml -72 ml Intake Oral 360 ml 720 ml 480 ml IV Total 841 ml 1100 ml 98 ml Output Urine Total 600 ml 500 ml 600 ml Drainage Total 40 ml 50 ml 50 ml # Bowel Movements 2 2 Physical Exam GENERAL: In NAD. SKIN: Warm and dry. HEAD: Normocephalic. EYES: No scleral icterus. No injection or drainage. NECK: Supple, trachea midline. No JVD or lymphadenopathy. CARDIOVASCULAR: Regular rate and rhythm without murmurs, gallops, or rubs. RESPIRATORY: Breath sounds equal bilaterally. No accessory muscle use. GASTROINTESTINAL: Abdomen soft, mildly tender, nondistended. MUSCULOSKELETAL: No cyanosis, or edema. Laboratory Laboratory Tests Test 12/22/17 18:20 12/23/17 03:45 Stool C. difficile Toxin (PCR) NEGATIVE Stl C. difficile Toxin Epiderm 027 PRESUMPTIVE NEGATIVE White Blood Count 6.7 TH/MM3 Red Blood Count 2.34 MIL/MM3 Hemoglobin 7.9 GM/DL Hematocrit 23.3 % Mean Corpuscular Volume 99.5 FL Mean Corpuscular Hemoglobin 33.6 PG Mean Corpuscular Hemoglobin Concent 33.7 % Red Cell Distribution Width 16.3 % Platelet Count 312 TH/MM3 Mean Platelet Volume 9.4 FL Neutrophils (%) (Auto) 70.3 % Lymphocytes (%) (Auto) 12.5 % Monocytes (%) (Auto) 15.4 % Eosinophils (%) (Auto) 1.1 % Basophils (%) (Auto) 0.7 % Neutrophils # (Auto) 4.7 TH/MM3 Lymphocytes # (Auto) 0.8 TH/MM3 Monocytes # (Auto) 1.0 TH/MM3 Eosinophils # (Auto) 0.1 TH/MM3 Basophils # (Auto) 0.1 TH/MM3 CBC Comment DIFF FINAL Differential Comment Blood Urea Nitrogen 6 MG/DL Creatinine 0.83 MG/DL Random Glucose 71 MG/DL Calcium Level 7.6 MG/DL Sodium Level 141 MEQ/L Potassium Level 3.0 MEQ/L Chloride Level 105 MEQ/L Carbon Dioxide Level 26.1 MEQ/L Anion Gap 10 MEQ/L Estimat Glomerular Filtration Rate 90 ML/MIN Assessment and Plan Problem List: (1) Sinus tachycardia ICD Codes: R00.0 - Tachycardia, unspecified (2) Right upper quadrant abscess ICD Codes: K65.1 - Peritoneal abscess (3) PAD (peripheral artery disease) ICD Codes: I73.9 - Peripheral vascular disease, unspecified Status: Chronic (4) S/P femoral-popliteal bypass surgery ICD Codes: Z95.828 - Presence of other vascular implants and grafts Status: Acute (5) CAD S/P percutaneous coronary angioplasty ICD Codes: I25.10 - Atherosclerotic heart disease of [place] coronary artery without angina pectoris; Z98.61 - Coronary angioplasty status Status: Chronic (6) HTN (hypertension) ICD Codes: I10 - Essential (primary) hypertension Status: Chronic (7) HLD (hyperlipidemia) ICD Codes: E78.5 - Hyperlipidemia, unspecified Status: Chronic Assessment and Plan Remains stable from cardiac standpoint. No new cardiac issues. No arrhythmias, stays in SR. No angina or CHF. Continue current program including antibiotics, replace K. Increase activity, PT. Smita Minaya MD Dec 23, 2017 14:05
[2017-12-23] MEDS: ENOXAPARIN SODIUM 40 MG/0.4 ML SYRINGE SQ SCH (14:19)
--- NOTE | 2017-12-23 16:07 | HHI.PR ---
Neuropsych Behavior Behavior: Intact: Coping/Acceptance, Cooperative w/ Treatment, Motivation, Frustration Tolerance/[place] Cognitive Cognitive: Intact: Attention/Concentration, Insight/Awareness, Mild: Confused/ Orientation Progress Notes/Response to Tx Contents of Sessions: Adjustment Time with Patient: 15 minutes Premorbid psychological status Premorbid Cognitive, Emotional and Behavioral Status: Stable. The patient has high school years of education and a solid work history prior to this injury. The patient has no prior psychiatric difficulties, as described above. However, there is a report of prior depressive disorder. Substance abuse history is unremarkable. Behavioral Reactions of Patient and Family/Support System: Stable. The patients family is experiencing ongoing issues of adjustment given the nature of the injury, and this aspect of recovery will require ongoing monitoring. Emotional/Behavioral Status of Patient and Family/Support System: Stable. Pertinent issues, if appropriate to this patients clinical care, are described in detail above. Maximizing acute care outcome It is recommended that the patient continue to be monitored for emergent behavioral impulsivity as the medical condition evolves. To assist with this I ordered to ABS to monitor his agitation/restlessness as he continues to recovery. I will follow him daily to ensure that he is progressing in this fashion. He will eventually require some level of physical rehabilitation efforts. If he transfers to [place], I will follow him there too. At this point in the recovery process, the patient does have cognitive capacity as the patient is able to understand a situation and its likely consequences, and he is he able to manipulate information rationally. Cognitive capacity will be assessed throughout the recovery process. Anticipated Problems The greatest impediment to his recovery will be psychological factors affecting his physical condition. As you have already done, avoid benzodiazepines and narcotic medications. Consider also having the warehouse manager stop by and see him during his stay. I will also see him daily to facilitate his psychological well being. Treatment Plan This clinician will continue to follow with you throughout the course of this patients acute care treatment, and I will be available to meet with the patient s family/support system to facilitate their understanding and the ongoing care of their family member. The goals of neuropsychological intervention shall be both educational and supportive to the family/support system as is deemed clinically appropriate. Additionally, I would recommend a referral to Dr. Frazier for ongoing patient and family adjustment issues if they are coming to [place]. Disinhibition Score: 15.68 Aggression Score: 14.00 Lability Score: 14.00 Agitated Behavior Total Score: 15 Impression This 77 year old man with recent vascular surgery presents with unusual affect, problems with expression and is somewhat encephalopathic. Neurobehavioral exam argues against a structural neurological etiology. Rather, he appears to have two issues. His primary issue is pain, which is exacerbated by underlying issues and is clouding his mentation. The underlying issue appears to be psychological factors affecting physical condition. This patient has longstanding issues of clinical depression, exacerbated by poor parental relationship and grief related to his 's and subsequent loneliness. This underlying condition is exacerbating his pain. 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 Discussion with nurse concerning his behavioral observations. The patient reported improved pain control, and appears improved in terms of cognition, as he is alert, oriented and following commands, with good carryover of information over the past several hours and several days. He reported improved mood and affect as well. No agitation/ restless noted, corroborated by RN, and documented by ABS. I provided the patient support and encouragement. He remains on Cymbalta. I will continue to follow. Preston Juarez PhD Dec 23, 2017 4:07 pm
[2017-12-23] MEDS: TERAZOSIN HCL 5 MG CAP PO SCH (21:16)
[2017-12-24] VITALS (20 sets, daily range): BP systolic 122–149; BP diastolic 58–68; PULSE 68–89; RESP 16–18; TEMP 98–99.8; O2SAT 95–99
[2017-12-24] MEDS: PIPERACIL-TAZO 3.375 GM PREMIX 50 ML IV SCH ×4 (05:00→23:32)
[2017-12-24] MEDS: LACTATED RINGER'S 1000 ML INJ 1,000 ML IV SCH ×2 (07:02→15:57)
[2017-12-24] MEDS: CLOPIDOGREL 75 MG TAB PO SCH (08:43)
[2017-12-24] MEDS: METOPROLOL TARTRATE 50 MG TAB PO SCH ×2 (08:43→21:56)
[2017-12-24] MEDS: DULoxetine HCl DR 30 MG CAP PO SCH ×2 (08:43→21:56)
[2017-12-24] MEDS: POTASSIUM CHLOR 40 MEQ PREMIX 100 ML IV PRN (11:16)
[2017-12-24] MEDS: POTASSIUM CHLOR 20 MEQ PREMIX 100 ML IV PRN ×4 (11:45→18:18)
[2017-12-24] MEDS: ENOXAPARIN SODIUM 40 MG/0.4 ML SYRINGE SQ SCH (12:33)
[2017-12-24] MEDS: REMOVE OLD PATCH T-DERMAL SCH (12:34)
[2017-12-24] MEDS: fentaNYL 25 MCG/HR PATCH T-DERMAL SCH (12:34)
--- NOTE | 2017-12-24 14:30 | PD.CAR.PN ---
CVT Progress Note Subjective/Hospital Course: 12/05/2017 As above noted in the H&P this patient has severe diffuse peripheral vascular disease with claudication at rest Patient has near total occlusion of common iliac arteries and then occlusion of the external iliac artery more distally with severe common femoral near occlusive disease and multilevel stenosis of both SFAs in the range of 90% Proximal popliteal arteries are equally diseased and trifurcations are stenosed in both legs Dominant vessel to left and right foot is anterior tibial artery and rest of the vessels are bits and pieces segmented throughout Patient needs aortobifemoral bypass and essentially bilateral femoral-popliteal bypass but his left leg is more symptomatic even at rest Patient will undergo aortobifemoral bypass and possibly left femoral-popliteal bypass tomorrow There is a small chance that aorta will be so calcified that it would be hard to enter. At that point we would convert to axillobifemoral bypass Discussed with patient at length the benefits and the risks of the procedure 12/07/2017 Patient is status post aortobifemoral bypass and left femoral-popliteal bypass with endarterectomy of the aorta and external iliac/common femoral arteries Patient is extubated since yesterday awake alert and oriented Pain appears to be well controlled Hemodynamically patient is stable requiring small amount of Levophed Abdomen soft few bowel sounds incision is clean and dry Groins are clean dry patient has excellent distal dopplerable pulses in feet are warm We will continue IV hydration n.p.o. status except for medication and general support Would keep patient on bedrest for at least another day considering the extent of surgery his age and comorbidities Doing very well at this time Hospital Monitor help greatly appreciated 12/08/2017 Patient doing very well this morning Awake alert and oriented Abdomen soft incision clean and dry, few bowel sounds Excellent distal pulses in both legs. Feet are warm well perfused good capillary refill Out of bed Patient at this point is fluid overloaded and being third day should start mobilizing third space. We will give Lasix to help along and decrease IV rate to maintenance All things equal patient will be able to leave the unit tomorrow 12/09/2017 Patient doing very well Diuresis fair amount of urine and decreased in third space with some volume extracellular contraction Neurologically remains intact Abdomen soft incision clean and dry Bilateral femoral pulses palpable bilateral popliteal by Doppler Ray pedis posterior tibial by Doppler Feet are nice and warm and patient is well-perfused as opposed to before surgery Still remains somewhat hypervolemic but is gradually going to mobilize Plan Out of bed and ambulate Aggressive physical and occupational therapy Transfer to floor Remove arterial line and central line and dismantle the patient of unnecessary equipment We will start on clear liquids 12/10/2017 Patient doing well at this time Incision abdomen clean and dry Groin incisions clean and dry excellent bilateral perfusion Abdomen soft some hypoactive bowel sounds still persistent partial ileus Remains on clear liquids and will not advance until patient passes gas and has bowel movement Somewhat nauseous Plan Out of bed patient needs to ambulate more actively Adequate change in pain control Urology consult patient has significant swelling of the scrotum and penile skin obviously to do the dependent portion but this may be interfering with the removal of the Parikh catheter Rehab referral [facility] as soon as diet is advanced and patient is well 12/11/2017 Patient doing okay at this time Abdominal groin and leg incisions clean and dry Great pulse in the left femoropopliteal graft and bilateral palpable femoral pulses Bilateral good breath sounds with some crackles over the bases Abdomen is distended and patient has persistent ileus which is not uncommon after large retroperitoneal surgery of the sorts We will reinsert NG tube the patient decompresses for if he throws up he will aspirate and then will have much bigger problem on her hands Medication can still be given through the tube Hemoglobin 7.9, in face of coronary disease will transfuse 1 unit PRBC Patient needs to ambulate and be up and around Patient is probably somewhat fluid overloaded at this point based on clinical indices, generalized edema and lung exam with some crackles over the bases. On the other hand it is very hard to tell from the intake output summaries for these are completely incorrect and unreliable 12/12/2017 Patient doing better this morning Incisions are clean and dry Excellent distal pulses Patient still has some degree of generalized edema. Abdomen is soft hypoactive bowel sounds somewhat tender on palpation but patient is more complaining by the NG tube and is extremely anxious Persistent postoperative ileus although bowel movement yesterday Had to place an NG tube which drained about a liter over the last 24 hours of green succus entericus We will leave the NG tube until ileus resolves With retroperitoneal surgery ileus is common and only time will fix it Decrease IV rate and place on daily Lasix 12/13/2017 Patient better today Awake alert but somewhat unusual affect very anxious had hallucinations We will be seeing Dilyasid because this might be the culprit and switched to morphine Excellent proximal and distal pulses Incisions are clean and dry abdomen is softer but still moderately distended with very hypoactive bowel sounds consistent with prolonged paralytic ileus in face of extensive abdominal surgery NG tube over a liter in last 24 hours however this is been the cause of problems because of nurses inability to properly manage the NG tube On top of it NG tube somehow "came out" and needs to be reinserted KUB confirms paralytic ileus which is of course combination of surgery and narcotics administration for mobilization of the patient I am also worried about the ileus resolving but I am worried about patient developing atelectasis and eventually pneumonia it is absolutely Critical the patient walks in the choroid hours and have time devoted to him by physical therapy as well as nursing, rather than laying in bed 12/14/2017 Patient doing much better today He was very confused yesterday but much better today Abdomen soft hypoactive bowel sounds distention definitely decreased Ileus slowly resolving patient passing gas but no bowel movements NG tube about 800 cc over 24 hours We will keep NG tube for another day patient needs to ambulate and be out of bed to prevent pneumonia Probably NG tube will come out tomorrow all things equal 12/15/2017 Patient awake alert and oriented and slightly confused Abdomen soft hypoactive bowel sounds definitely decompressed but on percussion tympanic with obviously small bowel and colonic ileus We will give some laxatives to help patient along Cannot remove the NG tube to patient passes gas and has good bowel movement Incisions are clean and dry and patient has good peripheral perfusion 12/16/2017 Patient is a febrile White count elevated 14,000 with some left shift due to bilateral atelectasis left more than the right He is awake alert and oriented in time space and person Patient has a very unusual affect with lots of grimacing and inability to truly express very well although he answers simple questions normally Appears has encephalopathy on top of patient's early cognitive deficits from time before the surgery We will consult neuropsychology to evaluate the patient this may be effective the medications Incisions are clean and dry Abdomen is soft active bowel sounds and nasogastric drainage is decreased Patient is passing large amounts of gas and having 3 bowel movements today Ileus is resolving Patient will need active and very aggressive rehabilitation in order to be functional again Plan Neuropsychology consult DC NG tube Clear liquid diet Will stop morphine and Xanax at this point because patient is pinpoint and acting in the usual fashion Check liver function studies as well as ammonia level Patient will need rehab the next few days for this set him back physically significantly Bilateral breath sounds decreased over the both lung ramon basally Patient is developing atelectasis for he is unwilling to get out of bed walk and work with physical therapy and all Every day he spends more in chair instead of walking will be 1 week longer for rehabilitation 12/17/17 VSS WBC 14 K Patient awake and alert but sometimes confused and talks about some fantasies. Bilateral BS decreased over the R and L base. Patient has some atelectasis due to inactivity and BR Abdomen soft, ileus resolved. Incision clean/dry healing nicely. Patient has had 8 BMs today. Refuses to eat because he "burps" and cigars will come out.... Neuropsychology Dr Juarez consult greatly appreciated Patient is very slaow to work with PT/OT Once on diet can transfer to rehab. 12/19/17 Patient doing better RUQ suprahepatic collection 6x5 cm aspirated successfully by radiology. Abdomen soft, active BS Aorto-bifem open good perfusion of legs SS drainage popliteal upper part of incision Tolerates diet better and encouraged to take p.o. Encouraged to work with PT/OT On Zosyn IV Plan to transfer to rehab once all issues cleared up. 12/23/2017 Patient definitely doing better at this time Bilateral breath sounds good inspiratory effort Patient moving around with ease Having regular bowel movements semi-formed Abdomen soft active bowel sounds in incision is clean and dry Leg incision is clean well-healed As noted above patient developed right upper quadrant abscess and I believe patient must have had a perforated diverticulum in the right upper quadrant as a result of ileus and bowel dilatation for he does have diffuse diverticula throughout the bowel also on the right side. This is almost completely sealed off at this time for there is no gas in it however drain is to remain in place for the time being until this completely disappears As far as this closing and disappearing nutritional status is of paramount importance Unfortunately patient is not taking well p.o. for he says that food does not taste good We will place on some Reglan for gastric motility the patient does have chronic gastroparesis Continue antibiotics In addition patient is a tiny decubitus on his sacrum and wound care input and management is greatly appreciated 12/24/2017 Patient doing better today Awake alert and oriented but somewhat confused at times asking unusual questions Tolerates diet better and he is varying much being encouraged to take high caloric supplements with each meal but still not eating as I would like him to Ambulating around the room and in the corridor with physical therapy Abdomen soft active bowel sounds incision clean and dry Will remove ander Saturday Drainage from the right upper quadrant collection is only but 100 cc per 24 hours and this is slowly drying up Patient remains afebrile with normal white count At this point the only issue is the drain which should stay in for another few days then once it is removed patient can be transferred to rehab Objective: Vital Signs Date Time Temp Pulse Resp B/P (MAP) Pulse Ox O2 Delivery O2 Flow Rate FiO2 12/24/17 13:15 18 12/24/17 13:14 86 12/24/17 12:11 68 12/24/17 11:39 99 21 12/24/17 11:35 73 12/24/17 11:35 98.0 71 18 122/58 (79) 99 12/24/17 10:04 81 12/24/17 09:52 81 12/24/17 08:15 98.2 82 18 128/60 (82) 95 12/24/17 08:15 77 12/24/17 06:02 84 12/24/17 05:00 85 12/24/17 04:00 89 12/24/17 03:00 99.8 83 16 149/66 (93) 98 12/24/17 03:00 79 12/24/17 02:00 77 12/24/17 01:00 77 12/24/17 00:00 76 12/23/17 23:00 99.5 75 18 109/56 (73) 97 12/23/17 23:00 86 12/23/17 22:00 82 12/23/17 21:00 82 12/23/17 20:22 93 21 12/23/17 20:00 97 12/23/17 19:00 99.1 97 18 158/73 (101) 100 12/23/17 19:00 86 12/23/17 18:01 90 12/23/17 17:00 94 12/23/17 16:01 68 12/23/17 15:15 98.8 85 18 144/63 (90) 6 12/23/17 15:00 83 Labs: Laboratory Tests Test 12/24/17 08:42 Potassium Level 2.9 MEQ/L (3.5-5.1) Result Diagram: 12/23/17 0345 12/24/17 0842 (1) Sinus tachycardia (2) Right upper quadrant abscess (3) PAD (peripheral artery disease) (4) S/P femoral-popliteal bypass surgery (5) CAD S/P percutaneous coronary angioplasty (6) HTN (hypertension) (7) HLD (hyperlipidemia) Madi Anna MD Dec 24, 2017 14:30
--- NOTE | 2017-12-24 16:24 | PD.CARD.PN ---
Subjective Subjective Remarks No CP or SOB, ambulating in the halls Objective Medications Current Medications Medications (Trade) Dose Ordered Sig/Tess Route Start Time Stop Time Status Last Admin (Zofran Inj) 4 mg Q6H PRN IV PUSH 12/04/17 15:00 12/20/17 09:34 (Lovenox Inj) 40 mg Q24H SQ 12/05/17 13:00 12/24/17 12:33 (Hytrin) 20 mg HS PO 12/04/17 21:00 Future hold 12/23/17 21:16 (Prinivil) 40 mg DAILY PO 12/05/17 09:00 Future Hold 12/06/17 09:08 (Brethine Inj) 1 mg UNSCH PRN SQ 12/07/17 11:15 (Plavix) 75 mg DAILY PO 12/07/17 12:00 12/24/17 08:43 (Tylenol) 650 mg Q6H PRN PO 12/08/17 08:00 (Albuterol Neb) 2.5 mg Q2HR NEB PRN NEB 12/08/17 08:15 Potassium Chloride 100 ml @ 50 mls/hr Q2H PRN IV 12/08/17 08:15 Potassium Chloride 100 ml @ 50 mls/hr Q2H PRN IV 12/08/17 08:15 12/24/17 11:48 (K-Lyte Cl Eff) 50 meq UNSCH PRN PO 12/08/17 08:15 12/13/17 07:08 Potassium Chloride 100 ml @ 25 mls/hr UNSCH PRN IV 12/08/17 08:15 Potassium Chloride 100 ml @ 50 mls/hr Q2H PRN IV 12/08/17 08:15 Magnesium Sulfate 4 gm/Sodium Chloride 100 ml @ 50 mls/hr UNSCH PRN IV 12/08/17 08:15 (Mag-Ox) 800 mg UNSCH PRN PO 12/08/17 08:15 Magnesium Sulfate 2 gm/Sodium Chloride 100 ml @ 50 mls/hr UNSCH PRN IV 12/08/17 08:15 12/18/17 03:08 (K-Phos) 2,000 mg Q4H PRN PO 12/08/17 08:15 Sodium Phosphate 30 mmol/Sodium Chloride 250 ml @ 42 mls/hr UNSCH PRN IV 4/8/18 08:15 (K-Phos) 2,000 mg UNSCH PRN PO/TUBE 12/08/17 08:15 Potassium Phosphate 30 mmol/ Sodium Chloride 260 ml @ 42 mls/hr UNSCH PRN IV 12/08/17 08:15 12/09/17 07:30 (Percocet 5-325 Mg) 1 tab Q4H PRN PO 12/10/17 10:45 12/19/17 08:50 (Duragesic 25 Mcg Patch.72 Hr) 1 patch Q3D T-DERMAL 12/12/17 13:00 12/24/17 12:34 Miscellaneous Information 1 Q3D T-DERMAL 12/12/17 13:00 12/24/17 12:34 ([place] Ana) 1 lozenge Q4H PRN BUCCAL 12/12/17 15:30 (Cymbalta Dr) 30 mg BID PO 12/17/17 21:00 12/24/17 08:43 (Lopressor) 50 mg BID PO 12/18/17 00:00 12/24/17 08:43 Lactated Ringer's 1,000 ml @ 75 mls/hr [id number] IV 12/18/17 13:45 12/24/17 07:02 Piperacillin Sod/ Tazobactam Sod 50 ml @ 100 mls/hr Q6H IV 12/18/17 17:00 12/24/17 10:55 Vital Signs / I&O Vital Signs Date Time Temp Pulse Resp B/P (MAP) Pulse Ox O2 Delivery O2 Flow Rate FiO2 12/24/17 15:09 98.6 76 18 141/68 (92) 96 12/24/17 15:09 76 12/24/17 13:15 18 12/24/17 13:14 86 12/24/17 12:11 68 12/24/17 11:39 99 21 12/24/17 11:35 73 12/24/17 11:35 98.0 71 18 122/58 (79) 99 12/24/17 10:04 81 12/24/17 09:52 81 12/24/17 08:15 98.2 82 18 128/60 (82) 95 12/24/17 08:15 77 12/24/17 06:02 84 12/24/17 05:00 85 12/24/17 04:00 89 12/24/17 03:00 99.8 83 16 149/66 (93) 98 12/24/17 03:00 79 12/24/17 02:00 77 12/24/17 01:00 77 12/24/17 00:00 76 12/23/17 23:00 99.5 75 18 109/56 (73) 97 12/23/17 23:00 86 12/23/17 22:00 82 12/23/17 21:00 82 12/23/17 20:22 93 21 12/23/17 20:00 97 12/23/17 19:00 99.1 97 18 158/73 (101) 100 12/23/17 19:00 86 12/23/17 18:01 90 12/23/17 17:00 94 I/O 12/23/17 12/23/17 12/23/17 12/24/17 12/24/17 12/24/17 07:00 15:00 23:00 07:00 15:00 23:00 Intake Total 1100 ml 728 ml 2000 ml 1225 ml 250 ml Output Total 650 ml 400 ml 630 ml Balance 1100 ml 78 ml 1600 ml 595 ml 250 ml Intake Oral 480 ml 480 ml 240 ml IV Total 1100 ml 248 ml 1520 ml 985 ml 250 ml Output Urine Total 600 ml 400 ml 580 ml Drainage Total 50 ml 50 ml # Bowel Movements 2 2 Physical Exam GENERAL: In NAD. SKIN: Warm and dry. HEAD: Normocephalic. EYES: No scleral icterus. No injection or drainage. NECK: Supple, trachea midline. No JVD or lymphadenopathy. CARDIOVASCULAR: Regular rate and rhythm without murmurs, gallops, or rubs. RESPIRATORY: Breath sounds equal bilaterally. No accessory muscle use. GASTROINTESTINAL: Abdomen soft, mildly tender, nondistended. MUSCULOSKELETAL: No cyanosis, or edema. Laboratory Laboratory Tests Test 12/24/17 08:42 Potassium Level 2.9 MEQ/L Assessment and Plan Problem List: (1) Sinus tachycardia ICD Codes: R00.0 - Tachycardia, unspecified (2) Right upper quadrant abscess ICD Codes: K65.1 - Peritoneal abscess (3) PAD (peripheral artery disease) ICD Codes: I73.9 - Peripheral vascular disease, unspecified Status: Chronic (4) S/P femoral-popliteal bypass surgery ICD Codes: Z95.828 - Presence of other vascular implants and grafts Status: Acute (5) CAD S/P percutaneous coronary angioplasty ICD Codes: I25.10 - Atherosclerotic heart disease of [place] coronary artery without angina pectoris; Z98.61 - Coronary angioplasty status Status: Chronic (6) HTN (hypertension) ICD Codes: I10 - Essential (primary) hypertension Status: Chronic (7) HLD (hyperlipidemia) ICD Codes: E78.5 - Hyperlipidemia, unspecified Status: Chronic Assessment and Plan No new cardiac problems. Tele with no arrhythmias, stays in SR. No angina or CHF. Continue current program. Ambulating better, increase activity, PT. QuadratSmita MD Dec 24, 2017 16:24
[2017-12-24] MEDS: TERAZOSIN HCL 5 MG CAP PO SCH (21:56)
[2017-12-25] VITALS (25 sets, daily range): BP systolic 130–155; BP diastolic 63–89; PULSE 70–83; RESP 14–20; TEMP 98.1–99.7; O2SAT 94–98
[2017-12-25] MEDS: PIPERACIL-TAZO 3.375 GM PREMIX 50 ML IV SCH ×4 (05:39→22:20)
[2017-12-25] MEDS: LACTATED RINGER'S 1000 ML INJ 1,000 ML IV SCH ×2 (05:40→18:27)
[2017-12-25] MEDS: METOPROLOL TARTRATE 50 MG TAB PO SCH ×2 (08:58→20:49)
[2017-12-25] MEDS: DULoxetine HCl DR 30 MG CAP PO SCH ×2 (08:58→20:49)
[2017-12-25] MEDS: CLOPIDOGREL 75 MG TAB PO SCH (08:59)
--- NOTE | 2017-12-25 09:17 | PD.CARD.PN ---
Subjective Subjective Remarks No CP or SOB, ambulating in the halls, feels better Objective Medications Current Medications Medications (Trade) Dose Ordered Sig/Tess Route Start Time Stop Time Status Last Admin (Zofran Inj) 4 mg Q6H PRN IV PUSH 12/04/17 15:00 12/20/17 09:34 (Lovenox Inj) 40 mg Q24H SQ 12/05/17 13:00 12/24/17 12:33 (Hytrin) 20 mg HS PO 12/04/17 21:00 Future hold 12/24/17 21:56 (Prinivil) 40 mg DAILY PO 12/05/17 09:00 Future Hold 12/06/17 09:08 (Brethine Inj) 1 mg UNSCH PRN SQ 12/07/17 11:15 (Plavix) 75 mg DAILY PO 12/07/17 12:00 12/25/17 08:59 (Tylenol) 650 mg Q6H PRN PO 12/08/17 08:00 (Albuterol Neb) 2.5 mg Q2HR NEB PRN NEB 12/08/17 08:15 Potassium Chloride 100 ml @ 50 mls/hr Q2H PRN IV 12/08/17 08:15 Potassium Chloride 100 ml @ 50 mls/hr Q2H PRN IV 12/08/17 08:15 12/24/17 18:18 (K-Lyte Cl Eff) 50 meq UNSCH PRN PO 12/08/17 08:15 12/13/17 07:08 Potassium Chloride 100 ml @ 25 mls/hr UNSCH PRN IV 12/08/17 08:15 Potassium Chloride 100 ml @ 50 mls/hr Q2H PRN IV 12/08/17 08:15 Magnesium Sulfate 4 gm/Sodium Chloride 100 ml @ 50 mls/hr UNSCH PRN IV 12/08/17 08:15 (Mag-Ox) 800 mg UNSCH PRN PO 12/08/17 08:15 Magnesium Sulfate 2 gm/Sodium Chloride 100 ml @ 50 mls/hr UNSCH PRN IV 12/08/17 08:15 12/18/17 03:08 (K-Phos) 2,000 mg Q4H PRN PO 12/08/17 08:15 Sodium Phosphate 30 mmol/Sodium Chloride 250 ml @ 42 mls/hr UNSCH PRN IV 12/08/17 08:15 (K-Phos) 2,000 mg UNSCH PRN PO/TUBE 12/08/17 08:15 Potassium Phosphate 30 mmol/ Sodium Chloride 260 ml @ 42 mls/hr UNSCH PRN IV 12/08/17 08:15 12/09/17 07:30 (Percocet 5-325 Mg) 1 tab Q4H PRN PO 12/10/17 10:45 12/19/17 08:50 (Duragesic 25 Mcg Patch.72 Hr) 1 patch Q3D T-DERMAL 12/12/17 13:00 12/24/17 12:34 Miscellaneous Information 1 Q3D T-DERMAL 12/12/17 13:00 12/24/17 12:34 ([place] Ana) 1 lozenge Q4H PRN BUCCAL 12/12/17 15:30 (Cymbalta Dr) 30 mg BID PO 12/17/17 21:00 12/25/17 08:58 (Lopressor) 50 mg BID PO 12/18/17 00:00 12/25/17 08:58 Lactated Ringer's 1,000 ml @ 75 mls/hr [id number] IV 12/18/17 13:45 12/25/17 05:40 Piperacillin Sod/ Tazobactam Sod 50 ml @ 100 mls/hr Q6H IV 12/18/17 17:00 12/25/17 05:39 Vital Signs / I&O Vital Signs Date Time Temp Pulse Resp B/P (MAP) Pulse Ox O2 Delivery O2 Flow Rate FiO2 12/25/17 03:00 99.0 82 14 140/76 (97) 95 12/25/17 03:00 74 12/24/17 23:00 98.0 82 16 145/67 (93) 95 12/24/17 23:00 81 12/24/17 22:15 95 21 12/24/17 19:00 81 12/24/17 19:00 98.7 89 16 144/66 (92) 98 12/24/17 18:04 83 12/24/17 16:00 82 12/24/17 15:09 98.6 76 18 141/68 (92) 96 12/24/17 15:09 76 12/24/17 13:15 18 12/24/17 13:14 86 12/24/17 12:11 68 12/24/17 11:39 99 21 12/24/17 11:35 73 12/24/17 11:35 98.0 71 18 122/58 (79) 99 12/24/17 10:04 81 12/24/17 09:52 81 I/O 12/24/17 12/24/17 12/24/17 12/25/17 12/25/17 12/25/17 07:00 15:00 23:00 07:00 15:00 23:00 Intake Total 1225 ml 250 ml 480 ml 1750 ml Output Total 630 ml 800 ml 775 ml Balance 595 ml 250 ml -320 ml 975 ml Intake Oral 240 ml 480 ml 240 ml IV Total 985 ml 250 ml 1510 ml Output Urine Total 580 ml 800 ml 750 ml Drainage Total 50 ml 25 ml # Bowel Movements 2 7 2 Physical Exam GENERAL: In NAD. SKIN: Warm and dry. HEAD: Normocephalic. EYES: No scleral icterus. No injection or drainage. NECK: Supple, trachea midline. No JVD or lymphadenopathy. CARDIOVASCULAR: Regular rate and rhythm without murmurs, gallops, or rubs. RESPIRATORY: Breath sounds equal bilaterally. No accessory muscle use. GASTROINTESTINAL: Abdomen soft, mildly tender, nondistended. MUSCULOSKELETAL: No cyanosis, or edema. Laboratory Laboratory Tests Test 12/25/17 07:30 Potassium Level 3.3 MEQ/L Assessment and Plan Problem List: (1) Sinus tachycardia ICD Codes: R00.0 - Tachycardia, unspecified (2) Right upper quadrant abscess ICD Codes: K65.1 - Peritoneal abscess (3) PAD (peripheral artery disease) ICD Codes: I73.9 - Peripheral vascular disease, unspecified Status: Chronic (4) S/P femoral-popliteal bypass surgery ICD Codes: Z95.828 - Presence of other vascular implants and grafts Status: Acute (5) CAD S/P percutaneous coronary angioplasty ICD Codes: I25.10 - Atherosclerotic heart disease of [place] coronary artery without angina pectoris; Z98.61 - Coronary angioplasty status Status: Chronic (6) HTN (hypertension) ICD Codes: I10 - Essential (primary) hypertension Status: Chronic (7) HLD (hyperlipidemia) ICD Codes: E78.5 - Hyperlipidemia, unspecified Status: Chronic Assessment and Plan Remains stable from cardiac standpoint. Ambulating well with PT. Tele with no arrhythmias, stays in SR. No angina or CHF. Continue current program. OK to discharge from cardiac standpoint. Smita Minaya MD Dec 25, 2017 09:17
[2017-12-25] MEDS: ENOXAPARIN SODIUM 40 MG/0.4 ML SYRINGE SQ SCH (12:51)
--- NOTE | 2017-12-25 14:03 | PD.CAR.PN ---
CVT Progress Note Subjective/Hospital Course: 12/05/2017 As above noted in the H&P this patient has severe diffuse peripheral vascular disease with claudication at rest Patient has near total occlusion of common iliac arteries and then occlusion of the external iliac artery more distally with severe common femoral near occlusive disease and multilevel stenosis of both SFAs in the range of 90% Proximal popliteal arteries are equally diseased and trifurcations are stenosed in both legs Dominant vessel to left and right foot is anterior tibial artery and rest of the vessels are bits and pieces segmented throughout Patient needs aortobifemoral bypass and essentially bilateral femoral-popliteal bypass but his left leg is more symptomatic even at rest Patient will undergo aortobifemoral bypass and possibly left femoral-popliteal bypass tomorrow There is a small chance that aorta will be so calcified that it would be hard to enter. At that point we would convert to axillobifemoral bypass Discussed with patient at length the benefits and the risks of the procedure 12/07/2017 Patient is status post aortobifemoral bypass and left femoral-popliteal bypass with endarterectomy of the aorta and external iliac/common femoral arteries Patient is extubated since yesterday awake alert and oriented Pain appears to be well controlled Hemodynamically patient is stable requiring small amount of Levophed Abdomen soft few bowel sounds incision is clean and dry Groins are clean dry patient has excellent distal dopplerable pulses in feet are warm We will continue IV hydration n.p.o. status except for medication and general support Would keep patient on bedrest for at least another day considering the extent of surgery his age and comorbidities Doing very well at this time Senior Cytogenetic Technologist help greatly appreciated 12/08/2017 Patient doing very well this morning Awake alert and oriented Abdomen soft incision clean and dry, few bowel sounds Excellent distal pulses in both legs. Feet are warm well perfused good capillary refill Out of bed Patient at this point is fluid overloaded and being third day should start mobilizing third space. We will give Lasix to help along and decrease IV rate to maintenance All things equal patient will be able to leave the unit tomorrow 12/09/2017 Patient doing very well Diuresis fair amount of urine and decreased in third space with some volume extracellular contraction Neurologically remains intact Abdomen soft incision clean and dry Bilateral femoral pulses palpable bilateral popliteal by Doppler Ray pedis posterior tibial by Doppler Feet are nice and warm and patient is well-perfused as opposed to before surgery Still remains somewhat hypervolemic but is gradually going to mobilize Plan Out of bed and ambulate Aggressive physical and occupational therapy Transfer to floor Remove arterial line and central line and dismantle the patient of unnecessary equipment We will start on clear liquids 12/10/2017 Patient doing well at this time Incision abdomen clean and dry Groin incisions clean and dry excellent bilateral perfusion Abdomen soft some hypoactive bowel sounds still persistent partial ileus Remains on clear liquids and will not advance until patient passes gas and has bowel movement Somewhat nauseous Plan Out of bed patient needs to ambulate more actively Adequate change in pain control Urology consult patient has significant swelling of the scrotum and penile skin obviously to do the dependent portion but this may be interfering with the removal of the Parikh catheter Rehab referral [facility] as soon as diet is advanced and patient is well 12/11/2017 Patient doing okay at this time Abdominal groin and leg incisions clean and dry Great pulse in the left femoropopliteal graft and bilateral palpable femoral pulses Bilateral good breath sounds with some crackles over the bases Abdomen is distended and patient has persistent ileus which is not uncommon after large retroperitoneal surgery of the sorts We will reinsert NG tube the patient decompresses for if he throws up he will aspirate and then will have much bigger problem on her hands Medication can still be given through the tube Hemoglobin 7.9, in face of coronary disease will transfuse 1 unit PRBC Patient needs to ambulate and be up and around Patient is probably somewhat fluid overloaded at this point based on clinical indices, generalized edema and lung exam with some crackles over the bases. On the other hand it is very hard to tell from the intake output summaries for these are completely incorrect and unreliable 12/12/2017 Patient doing better this morning Incisions are clean and dry Excellent distal pulses Patient still has some degree of generalized edema. Abdomen is soft hypoactive bowel sounds somewhat tender on palpation but patient is more complaining by the NG tube and is extremely anxious Persistent postoperative ileus although bowel movement yesterday Had to place an NG tube which drained about a liter over the last 24 hours of green succus entericus We will leave the NG tube until ileus resolves With retroperitoneal surgery ileus is common and only time will fix it Decrease IV rate and place on daily Lasix 12/13/2017 Patient better today Awake alert but somewhat unusual affect very anxious had hallucinations We will be seeing Dilyasid because this might be the culprit and switched to morphine Excellent proximal and distal pulses Incisions are clean and dry abdomen is softer but still moderately distended with very hypoactive bowel sounds consistent with prolonged paralytic ileus in face of extensive abdominal surgery NG tube over a liter in last 24 hours however this is been the cause of problems because of nurses inability to properly manage the NG tube On top of it NG tube somehow "came out" and needs to be reinserted KUB confirms paralytic ileus which is of course combination of surgery and narcotics administration for mobilization of the patient I am also worried about the ileus resolving but I am worried about patient developing atelectasis and eventually pneumonia it is absolutely Critical the patient walks in the choroid hours and have time devoted to him by physical therapy as well as nursing, rather than laying in bed 12/14/2017 Patient doing much better today He was very confused yesterday but much better today Abdomen soft hypoactive bowel sounds distention definitely decreased Ileus slowly resolving patient passing gas but no bowel movements NG tube about 800 cc over 24 hours We will keep NG tube for another day patient needs to ambulate and be out of bed to prevent pneumonia Probably NG tube will come out tomorrow all things equal 12/15/2017 Patient awake alert and oriented and slightly confused Abdomen soft hypoactive bowel sounds definitely decompressed but on percussion tympanic with obviously small bowel and colonic ileus We will give some laxatives to help patient along Cannot remove the NG tube to patient passes gas and has good bowel movement Incisions are clean and dry and patient has good peripheral perfusion 12/16/2017 Patient is a febrile White count elevated 14,000 with some left shift due to bilateral atelectasis left more than the right He is awake alert and oriented in time space and person Patient has a very unusual affect with lots of grimacing and inability to truly express very well although he answers simple questions normally Appears has encephalopathy on top of patient's early cognitive deficits from time before the surgery We will consult neuropsychology to evaluate the patient this may be effective the medications Incisions are clean and dry Abdomen is soft active bowel sounds and nasogastric drainage is decreased Patient is passing large amounts of gas and having 3 bowel movements today Ileus is resolving Patient will need active and very aggressive rehabilitation in order to be functional again Plan Neuropsychology consult DC NG tube Clear liquid diet Will stop morphine and Xanax at this point because patient is pinpoint and acting in the usual fashion Check liver function studies as well as ammonia level Patient will need rehab the next few days for this set him back physically significantly 12/25/2017 Status post aortobifemoral and left femoral-popliteal bypass Patient doing quite better today he is awake alert oriented and in good mood Abdomen is soft active bowel sounds Incision is clean and dry and will will remove the ander today Drainage from the right upper quadrant pigtail is very minimal but 20 cc per 24 hours of clear to turbid yellowish fluid and I will leave it in for another few days to completely dries up There is very little question my mind that this patient probably silently perforated diverticulum of transverse colon sometimes with the first week of postoperative care, developed collection and then subsequently diarrhea This probably sealed off early in the course however were still draining the residual fluid from it Good distal pulses feet are warm and swelling is decreased Patient is apparently ambulating much better at this time and once the drain is out he will transfer to rehab [facility] and if patient unable to void will go as per [place] protocol Bilateral breath sounds decreased over the both lung ramon basally Patient is developing atelectasis for he is unwilling to get out of bed walk and work with physical therapy and all Every day he spends more in chair instead of walking will be 1 week longer for rehabilitation 12/17/17 VSS WBC 14 K Patient awake and alert but sometimes confused and talks about some fantasies. Bilateral BS decreased over the R and L base. Patient has some atelectasis due to inactivity and BR Abdomen soft, ileus resolved. Incision clean/dry healing nicely. Patient has had 8 BMs today. Refuses to eat because he "burps" and cigars will come out.... Neuropsychology Dr Juarez consult greatly appreciated Patient is very slaow to work with PT/OT Once on diet can transfer to rehab. 12/19/17 Patient doing better RUQ suprahepatic collection 6x5 cm aspirated successfully by radiology. Abdomen soft, active BS Aorto-bifem open good perfusion of legs SS drainage popliteal upper part of incision Tolerates diet better and encouraged to take p.o. Encouraged to work with PT/OT On Zosyn IV Plan to transfer to rehab once all issues cleared up. 12/23/2017 Patient definitely doing better at this time Bilateral breath sounds good inspiratory effort Patient moving around with ease Having regular bowel movements semi-formed Abdomen soft active bowel sounds in incision is clean and dry Leg incision is clean well-healed As noted above patient developed right upper quadrant abscess and I believe patient must have had a perforated diverticulum in the right upper quadrant as a result of ileus and bowel dilatation for he does have diffuse diverticula throughout the bowel also on the right side. This is almost completely sealed off at this time for there is no gas in it however drain is to remain in place for the time being until this completely disappears As far as this closing and disappearing nutritional status is of paramount importance Unfortunately patient is not taking well p.o. for he says that food does not taste good We will place on some Reglan for gastric motility the patient does have chronic gastroparesis Continue antibiotics In addition patient is a tiny decubitus on his sacrum and wound care input and management is greatly appreciated 12/24/2017 Patient doing better today Awake alert and oriented but somewhat confused at times asking unusual questions Tolerates diet better and he is varying much being encouraged to take high caloric supplements with each meal but still not eating as I would like him to Ambulating around the room and in the corridor with physical therapy Abdomen soft active bowel sounds incision clean and dry Will remove ander Saturday Drainage from the right upper quadrant collection is only but 100 cc per 24 hours and this is slowly drying up Patient remains afebrile with normal white count At this point the only issue is the drain which should stay in for another few days then once it is removed patient can be transferred to rehab Objective: Vital Signs Date Time Temp Pulse Resp B/P (MAP) Pulse Ox O2 Delivery O2 Flow Rate FiO2 12/25/17 13:00 77 12/25/17 12:00 72 12/25/17 11:00 70 12/25/17 11:00 98.5 71 19 145/70 (95) 96 12/25/17 10:00 73 12/25/17 09:00 83 12/25/17 08:00 74 12/25/17 07:00 80 12/25/17 07:00 98.1 81 16 137/68 (91) 96 12/25/17 03:00 99.0 82 14 140/76 (97) 95 12/25/17 03:00 74 12/24/17 23:00 98.0 82 16 145/67 (93) 95 12/24/17 23:00 81 12/24/17 22:15 95 21 12/24/17 19:00 81 12/24/17 19:00 98.7 89 16 144/66 (92) 98 12/24/17 18:04 83 12/24/17 16:00 82 12/24/17 15:09 98.6 76 18 141/68 (92) 96 12/24/17 15:09 76 Labs: Laboratory Tests Test 12/25/17 07:30 Potassium Level 3.3 MEQ/L (3.5-5.1) Result Diagram: 12/23/17 0345 12/25/17 0730 (1) Sinus tachycardia (2) Right upper quadrant abscess (3) PAD (peripheral artery disease) (4) S/P femoral-popliteal bypass surgery (5) CAD S/P percutaneous coronary angioplasty (6) HTN (hypertension) (7) HLD (hyperlipidemia) Madi Anna MD Dec 25, 2017 14:03
[2017-12-25] MEDS: ONDANSETRON HCL 4 MG/2 ML VIAL IV PUSH PRN (17:00)
[2017-12-25] MEDS: TERAZOSIN HCL 5 MG CAP PO SCH (20:49)
[2017-12-25] MEDS: POTASSIUM CHLOR 20 MEQ PREMIX 100 ML IV PRN (22:51)
[2017-12-26] VITALS (26 sets, daily range): BP systolic 133–151; BP diastolic 61–77; PULSE 67–96; RESP 16–20; TEMP 98–99.1; O2SAT 96–99
[2017-12-26] MEDS: POTASSIUM CHLOR 20 MEQ PREMIX 100 ML IV PRN ×3 (00:51→05:39)
[2017-12-26] MEDS: oxyCODONE/ACETAMINOPHEN 5 MG/325 MG TAB PO PRN ×3 (02:47→21:47)
[2017-12-26] MEDS: PIPERACIL-TAZO 3.375 GM PREMIX 50 ML IV SCH ×4 (05:08→22:27)
[2017-12-26] MEDS: ONDANSETRON HCL 4 MG/2 ML VIAL IV PUSH PRN (08:30)
[2017-12-26] MEDS: CLOPIDOGREL 75 MG TAB PO SCH (09:55)
[2017-12-26] MEDS: METOPROLOL TARTRATE 50 MG TAB PO SCH ×2 (09:55→21:47)
[2017-12-26] MEDS: DULoxetine HCl DR 30 MG CAP PO SCH ×2 (09:55→21:47)
[2017-12-26] MEDS: LACTATED RINGER'S 1000 ML INJ 1,000 ML IV SCH (09:56)
[2017-12-26 11:57] LABS: HEMATOCRIT 27.1 % (39.0-51.0); HEMOGLOBIN 9.2 GM/DL (13.0-17.0); MEAN CELL VOLUME 97.4 FL (80.0-100.0); MEAN CORPUSCULAR HEMOGLOBIN 33.3 PG (27.0-34.0); MEAN CORPUSCULAR HGB CONC 34.2 % (32.0-36.0); PLATELET COUNT 328 TH/MM3 (150-450); RED BLOOD COUNT 2.78 MIL/MM3 (4.50-5.90); RED CELL DISTRIBUTION WIDTH 17.1 % (11.6-17.2)
[2017-12-26 12:07] LABS: BICARBONATE 24.8 MEQ/L (21.0-32.0); CALCIUM 7.6 MG/DL (8.5-10.1); CREATININE 0.92 MG/DL (0.60-1.30)
[2017-12-26] MEDS: ENOXAPARIN SODIUM 40 MG/0.4 ML SYRINGE SQ SCH (14:03)
[2017-12-26] MEDS ORDERED: POTASSIUM CHLORIDE 20 MEQ CONTROLLED RELEASE TAB PO PRN (19:30)
--- NOTE | 2017-12-26 20:12 | PD.CAR.PN ---
CVT Progress Note Subjective/Hospital Course: 12/05/2017 As above noted in the H&P this patient has severe diffuse peripheral vascular disease with claudication at rest Patient has near total occlusion of common iliac arteries and then occlusion of the external iliac artery more distally with severe common femoral near occlusive disease and multilevel stenosis of both SFAs in the range of 90% Proximal popliteal arteries are equally diseased and trifurcations are stenosed in both legs Dominant vessel to left and right foot is anterior tibial artery and rest of the vessels are bits and pieces segmented throughout Patient needs aortobifemoral bypass and essentially bilateral femoral-popliteal bypass but his left leg is more symptomatic even at rest Patient will undergo aortobifemoral bypass and possibly left femoral-popliteal bypass tomorrow There is a small chance that aorta will be so calcified that it would be hard to enter. At that point we would convert to axillobifemoral bypass Discussed with patient at length the benefits and the risks of the procedure 12/07/2017 Patient is status post aortobifemoral bypass and left femoral-popliteal bypass with endarterectomy of the aorta and external iliac/common femoral arteries Patient is extubated since yesterday awake alert and oriented Pain appears to be well controlled Hemodynamically patient is stable requiring small amount of Levophed Abdomen soft few bowel sounds incision is clean and dry Groins are clean dry patient has excellent distal dopplerable pulses in feet are warm We will continue IV hydration n.p.o. status except for medication and general support Would keep patient on bedrest for at least another day considering the extent of surgery his age and comorbidities Doing very well at this time [employer] help greatly appreciated 12/08/2017 Patient doing very well this morning Awake alert and oriented Abdomen soft incision clean and dry, few bowel sounds Excellent distal pulses in both legs. Feet are warm well perfused good capillary refill Out of bed Patient at this point is fluid overloaded and being third day should start mobilizing third space. We will give Lasix to help along and decrease IV rate to maintenance All things equal patient will be able to leave the unit tomorrow 12/09/2017 Patient doing very well Diuresis fair amount of urine and decreased in third space with some volume extracellular contraction Neurologically remains intact Abdomen soft incision clean and dry Bilateral femoral pulses palpable bilateral popliteal by Doppler Ray pedis posterior tibial by Doppler Feet are nice and warm and patient is well-perfused as opposed to before surgery Still remains somewhat hypervolemic but is gradually going to mobilize Plan Out of bed and ambulate Aggressive physical and occupational therapy Transfer to floor Remove arterial line and central line and dismantle the patient of unnecessary equipment We will start on clear liquids 12/10/2017 Patient doing well at this time Incision abdomen clean and dry Groin incisions clean and dry excellent bilateral perfusion Abdomen soft some hypoactive bowel sounds still persistent partial ileus Remains on clear liquids and will not advance until patient passes gas and has bowel movement Somewhat nauseous Plan Out of bed patient needs to ambulate more actively Adequate change in pain control Urology consult patient has significant swelling of the scrotum and penile skin obviously to do the dependent portion but this may be interfering with the removal of the Parikh catheter Rehab referral patient [facility] transfer [facility] as soon as diet is advanced and patient is well 12/11/2017 Patient doing okay at this time Abdominal groin and leg incisions clean and dry Great pulse in the left femoropopliteal graft and bilateral palpable femoral pulses Bilateral good breath sounds with some crackles over the bases Abdomen is distended and patient has persistent ileus which is not uncommon after large retroperitoneal surgery of the sorts We will reinsert NG tube the patient decompresses for if he throws up he will aspirate and then will have much bigger problem on her hands Medication can still be given through the tube Hemoglobin 7.9, in face of coronary disease will transfuse 1 unit PRBC Patient needs to ambulate and be up and around Patient is probably somewhat fluid overloaded at this point based on clinical indices, generalized edema and lung exam with some crackles over the bases. On the other hand it is very hard to tell from the intake output summaries for these are completely incorrect and unreliable 12/12/2017 Patient doing better this morning Incisions are clean and dry Excellent distal pulses Patient still has some degree of generalized edema. Abdomen is soft hypoactive bowel sounds somewhat tender on palpation but patient is more complaining by the NG tube and is extremely anxious Persistent postoperative ileus although bowel movement yesterday Had to place an NG tube which drained about a liter over the last 24 hours of green succus entericus We will leave the NG tube until ileus resolves With retroperitoneal surgery ileus is common and only time will fix it Decrease IV rate and place on daily Lasix 12/13/2017 Patient better today Awake alert but somewhat unusual affect very anxious had hallucinations We will be seeing Dilyasid because this might be the culprit and switched to morphine Excellent proximal and distal pulses Incisions are clean and dry abdomen is softer but still moderately distended with very hypoactive bowel sounds consistent with prolonged paralytic ileus in face of extensive abdominal surgery NG tube over a liter in last 24 hours however this is been the cause of problems because of nurses inability to properly manage the NG tube On top of it NG tube somehow "came out" and needs to be reinserted KUB confirms paralytic ileus which is of course combination of surgery and narcotics administration for mobilization of the patient I am also worried about the ileus resolving but I am worried about patient developing atelectasis and eventually pneumonia it is absolutely Critical the patient walks in the choroid hours and have time devoted to him by physical therapy as well as nursing, rather than laying in bed 12/14/2017 Patient doing much better today He was very confused yesterday but much better today Abdomen soft hypoactive bowel sounds distention definitely decreased Ileus slowly resolving patient passing gas but no bowel movements NG tube about 800 cc over 24 hours We will keep NG tube for another day patient needs to ambulate and be out of bed to prevent pneumonia Probably NG tube will come out tomorrow all things equal 12/15/2017 Patient awake alert and oriented and slightly confused Abdomen soft hypoactive bowel sounds definitely decompressed but on percussion tympanic with obviously small bowel and colonic ileus We will give some laxatives to help patient along Cannot remove the NG tube to patient passes gas and has good bowel movement Incisions are clean and dry and patient has good peripheral perfusion 12/16/2017 Patient is a febrile White count elevated 14,000 with some left shift due to bilateral atelectasis left more than the right He is awake alert and oriented in time space and person Patient has a very unusual affect with lots of grimacing and inability to truly express very well although he answers simple questions normally Appears has encephalopathy on top of patient's early cognitive deficits from time before the surgery We will consult neuropsychology to evaluate the patient this may be effective the medications Incisions are clean and dry Abdomen is soft active bowel sounds and nasogastric drainage is decreased Patient is passing large amounts of gas and having 3 bowel movements today Ileus is resolving Patient will need active and very aggressive rehabilitation in order to be functional again Plan Neuropsychology consult DC NG tube Clear liquid diet Will stop morphine and Xanax at this point because patient is pinpoint and acting in the usual fashion Check liver function studies as well as ammonia level Patient will need rehab the next few days for this set him back physically significantly 12/25/2017 Status post aortobifemoral and left femoral-popliteal bypass Patient doing quite better today he is awake alert oriented and in good mood Abdomen is soft active bowel sounds Incision is clean and dry and will will remove the ander today Drainage from the right upper quadrant pigtail is very minimal but 20 cc per 24 hours of clear to turbid yellowish fluid and I will leave it in for another few days to completely dries up There is very little question my mind that this patient probably silently perforated diverticulum of transverse colon sometimes with the first week of postoperative care, developed collection and then subsequently diarrhea This probably sealed off early in the course however were still draining the residual fluid from it Good distal pulses feet are warm and swelling is decreased Patient is apparently ambulating much better at this time and once the drain is out he will transfer to rehab [facility] and if patient unable to void will go as per Parikh protocol 12/26/2017 Patient doing very well at this time Abdomen is soft active bowel sounds Palpable bilateral femoral pulses strong dopplerable popliteal dorsalis pedis and posterior tibial pulses left better than right in face of femoropopliteal bypass Feet are warm Patient is taking better diet but still having some problems with diarrhea probably due to high caloric supplements which can give diarrhea Right upper quadrant drain is not draining anything anymore it is dried up and will be removed Patient can transfer to rehab tomorrow on p.o. antibiotics for another week Bilateral breath sounds decreased over the both lung ramon basally Patient is developing atelectasis for he is unwilling to get out of bed walk and work with physical therapy and all Every day he spends more in chair instead of walking will be 1 week longer for rehabilitation 12/17/17 VSS WBC 14 K Patient awake and alert but sometimes confused and talks about some fantasies. Bilateral BS decreased over the R and L base. Patient has some atelectasis due to inactivity and BR Abdomen soft, ileus resolved. Incision clean/dry healing nicely. Patient has had 8 BMs today. Refuses to eat because he "burps" and cigars will come out.... Neuropsychology Dr Juarez consult greatly appreciated Patient is very slaow to work with PT/OT Once on diet can transfer to rehab. 12/19/17 Patient doing better RUQ suprahepatic collection 6x5 cm aspirated successfully by radiology. Abdomen soft, active BS Aorto-bifem open good perfusion of legs SS drainage popliteal upper part of incision Tolerates diet better and encouraged to take p.o. Encouraged to work with PT/OT On Zosyn IV Plan to transfer to rehab once all issues cleared up. 12/23/2017 Patient definitely doing better at this time Bilateral breath sounds good inspiratory effort Patient moving around with ease Having regular bowel movements semi-formed Abdomen soft active bowel sounds in incision is clean and dry Leg incision is clean well-healed As noted above patient developed right upper quadrant abscess and I believe patient must have had a perforated diverticulum in the right upper quadrant as a result of ileus and bowel dilatation for he does have diffuse diverticula throughout the bowel also on the right side. This is almost completely sealed off at this time for there is no gas in it however drain is to remain in place for the time being until this completely disappears As far as this closing and disappearing nutritional status is of paramount importance Unfortunately patient is not taking well p.o. for he says that food does not taste good We will place on some Reglan for gastric motility the patient does have chronic gastroparesis Continue antibiotics In addition patient is a tiny decubitus on his sacrum and wound care input and management is greatly appreciated 12/24/2017 Patient doing better today Awake alert and oriented but somewhat confused at times asking unusual questions Tolerates diet better and he is varying much being encouraged to take high caloric supplements with each meal but still not eating as I would like him to Ambulating around the room and in the corridor with physical therapy Abdomen soft active bowel sounds incision clean and dry Will remove ander Saturday Drainage from the right upper quadrant collection is only but 100 cc per 24 hours and this is slowly drying up Patient remains afebrile with normal white count At this point the only issue is the drain which should stay in for another few days then once it is removed patient can be transferred to rehab Objective: Vital Signs Date Time Temp Pulse Resp B/P (MAP) Pulse Ox O2 Delivery O2 Flow Rate FiO2 12/26/17 18:00 78 12/26/17 17:00 72 12/26/17 16:00 73 12/26/17 15:00 98.0 79 16 151/70 (97) 98 12/26/17 15:00 84 12/26/17 14:00 72 12/26/17 13:00 71 12/26/17 12:52 98 21 12/26/17 12:00 74 12/26/17 11:00 98.1 68 18 135/77 (96) 99 12/26/17 11:00 81 12/26/17 10:00 78 12/26/17 09:00 80 12/26/17 08:00 81 12/26/17 07:00 80 12/26/17 07:00 98.5 83 18 151/72 (98) 96 12/26/17 06:00 74 12/26/17 05:00 76 12/26/17 04:00 98.8 80 20 138/65 (89) 96 12/26/17 04:00 80 12/26/17 03:00 72 12/26/17 02:00 76 12/26/17 01:00 74 12/26/17 00:00 82 12/26/17 00:00 99.1 82 20 150/65 (93) 96 12/25/17 22:00 80 Labs: Laboratory Tests Test 12/26/17 11:00 White Blood Count 8.0 TH/MM3 (4.0-11.0) Red Blood Count 2.78 MIL/MM3 (4.50-5.90) Hemoglobin 9.2 GM/DL (13.0-17.0) Hematocrit 27.1 % (39.0-51.0) Mean Corpuscular Volume 97.4 FL (80.0-100.0) Mean Corpuscular Hemoglobin 33.3 PG (27.0-34.0) Mean Corpuscular Hemoglobin Concent 34.2 % (32.0-36.0) Red Cell Distribution Width 17.1 % (11.6-17.2) Platelet Count 328 TH/MM3 (150-450) Mean Platelet Volume 9.0 FL (7.0-11.0) Blood Urea Nitrogen 4 MG/DL (7-18) Creatinine 0.92 MG/DL (0.60-1.30) Random Glucose 97 MG/DL (74-106) Calcium Level 7.6 MG/DL (8.5-10.1) Sodium Level 136 MEQ/L (136-145) Potassium Level 3.3 MEQ/L (3.5-5.1) Chloride Level 103 MEQ/L (98-107) Carbon Dioxide Level 24.8 MEQ/L (21.0-32.0) Anion Gap 8 MEQ/L (5-15) Estimat Glomerular Filtration Rate 80 ML/MIN (>89) Result Diagram: 12/26/17 1100 12/26/17 1100 (1) Sinus tachycardia (2) Right upper quadrant abscess (3) PAD (peripheral artery disease) (4) S/P femoral-popliteal bypass surgery (5) CAD S/P percutaneous coronary angioplasty (6) HTN (hypertension) (7) HLD (hyperlipidemia) Madi Anna MD Dec 26, 2017 20:12
[2017-12-26] MEDS ORDERED: LOPERAMIDE HCL 2 MG CAP PO ONE (21:00)
[2017-12-26] MEDS: TERAZOSIN HCL 5 MG CAP PO SCH (21:46)
--- NOTE | 2017-12-26 21:47 | PD.ID.CON ---
History of Present Illness Service ID Consult Requested By Reason for Consult Evaluation and Mment of drain organisms ? infection Primary Care Physician [facility] Diagnoses: History of Present Illness is a 77 yo WM with PMH HTN, PAD who was experiencing rest claudication due to severe stenosis bilateral common femoral artery stenosis. He underwent aortobifemoral bypass and left femoral popliteal bypass by Dr. Anna. He had postoperative hypotension and was placed on aggressive IVF resuscitation and neosynephrine. Post operatively he developed ileus and a fluid collection below the right hemidiaphragm. He underwent IR guided drainage of this fluid collection on 12/18/2017 by and another IR guided drainage on 2017. Cultures sent from 12/18/2017 are positive for E.coli, Entero fecalis, Enterobacter cloacae with no anaerobes. I do not see cultures from 12/21/2017 and per radiology notes these were 20 ml and discarded. ID consulted for evaluation and Mment of multiple gram negatives from 2 abscesses intra abdominal. Review of Systems ROS Limitations: Poor Historian Constitutional: DENIES: Diaphoretic episodes, Fatigue, Fever, Weight gain, Weight loss, Chills, Dizziness, Change in appetite, Night Sweats Endocrine: DENIES: Heat/cold intolerance, Polydipsia, Polyuria, Polyphagia Eyes: DENIES: Blurred vision, Diplopia, Eye inflammation, Eye pain, Vision loss , Photosensitivity, Double Vision Ears, nose, mouth, throat: DENIES: Tinnitus, Hearing loss, Vertigo, Nasal discharge, Oral lesions, Throat pain, Hoarseness, Ear Pain, Running Nose, Epistaxis, Sinus Pain, Toothache, Odynophagia Respiratory: DENIES: Apneas, Cough, Snoring, Wheezing, Hemoptysis, Sputum production, Shortness of breath Cardiovascular: DENIES: Chest pain, Palpitations, Syncope, Dyspnea on Exertion , PND, Lower Extremity Edema, Orthopnea, Claudication Gastrointestinal: COMPLAINS OF: Nausea, Vomiting, DENIES: Abdominal pain, Black stools, Bloody stools, Constipation, Diarrhea, Difficulty Swallowing, Anorexia Genitourinary: DENIES: Sexual dysfunction, Urinary frequency, Urinary incontinence, Urgency, Hematuria, Dysuria, Nocturia, Penile Discharge, Testicular Pain, Testicular Swelling Musculoskeletal: DENIES: Joint pain, Muscle aches, Stiffness, Joint Swelling, Back pain, Neck pain Integumentary: DENIES: Abnormal pigmentation, Nail changes, Pruritus, Rash Hematologic/lymphatic: DENIES: Bruising, Lymphadenopathy Immunologic/allergic: DENIES: Eczema, Urticaria Neurologic: DENIES: Abnormal gait, Headache, Localized weakness, Paresthesias, Seizures, Speech Problems, Tremor, Poor Balance Psychiatric: DENIES: Anxiety, Confusion, Mood changes, Depression, Hallucinations, Agitation, Suicidal Ideation, Homicidal Ideation, Delusions Except as stated in HPI: all other systems reviewed are Neg Past Family Social History Allergies: Coded Allergies: No Known Allergies (Unverified , 12/04/17) Past Medical History Coronary artery disease with prior myocardial infarction 2002 with stents Hypertension Hyperlipidemia BPH Peripheral arterial disease Past Surgical History Toe surgery Reported Medications Reported Meds & Active Scripts Active Reported Terazosin (Terazosin HCl) 10 Mg Cap 20 Mg PO HS Lisinopril 40 Mg Tab 40 Mg PO DAILY Active Ordered Medications Current Medications Medications (Trade) Dose Ordered Sig/Tess Route Start Time Stop Time Status Last Admin (Zofran Inj) 4 mg Q6H PRN IV PUSH 12/04/17 15:00 12/26/17 08:30 (Lovenox Inj) 40 mg Q24H SQ 12/05/17 13:00 12/26/17 14:03 (Hytrin) 20 mg HS PO 12/04/17 21:00 Future hold 12/26/17 21:46 (Prinivil) 40 mg DAILY PO 12/05/17 09:00 Future Hold 12/06/17 09:08 (Brethine Inj) 1 mg UNSCH PRN SQ 12/07/17 11:15 (Plavix) 75 mg DAILY PO 12/07/17 12:00 12/26/17 09:55 (Tylenol) 650 mg Q6H PRN PO 12/08/17 08:00 (Albuterol Neb) 2.5 mg Q2HR NEB PRN NEB 12/08/17 08:15 Potassium Chloride 100 ml @ 50 mls/hr Q2H PRN IV 12/08/17 08:15 Potassium Chloride 100 ml @ 50 mls/hr Q2H PRN IV 12/08/17 08:15 12/26/17 05:39 (K-Lyte Cl Eff) 50 meq UNSCH PRN PO 12/08/17 08:15 12/13/17 07:08 Potassium Chloride 100 ml @ 25 mls/hr UNSCH PRN IV 12/08/17 08:15 Potassium Chloride 100 ml @ 50 mls/hr Q2H PRN IV 12/08/17 08:15 Magnesium Sulfate 4 gm/Sodium Chloride 100 ml @ 50 mls/hr UNSCH PRN IV 12/08/17 08:15 (Mag-Ox) 800 mg UNSCH PRN PO 12/08/17 08:15 Magnesium Sulfate 2 gm/Sodium Chloride 100 ml @ 50 mls/hr UNSCH PRN IV 12/08/17 08:15 12/18/17 03:08 (K-Phos) 2,000 mg Q4H PRN PO 12/08/17 08:15 Sodium Phosphate 30 mmol/Sodium Chloride 250 ml @ 42 mls/hr UNSCH PRN IV 12/08/17 08:15 (K-Phos) 2,000 mg UNSCH PRN PO/TUBE 12/08/17 08:15 Potassium Phosphate 30 mmol/ Sodium Chloride 260 ml @ 42 mls/hr UNSCH PRN IV 12/08/17 08:15 12/09/17 07:30 (Percocet 5-325 Mg) 1 tab Q4H PRN PO 12/10/17 10:45 12/26/17 21:47 (Duragesic 25 Mcg Patch.72 Hr) 1 patch Q3D T-DERMAL 12/12/17 13:00 12/24/17 12:34 Miscellaneous Information 1 Q3D T-DERMAL 12/12/17 13:00 12/24/17 12:34 ([place] Ana) 1 lozenge Q4H PRN BUCCAL 12/12/17 15:30 (Cymbalta [address]) 30 mg BID PO 12/17/17 21:00 12/26/17 21:47 (Lopressor) 50 mg BID PO 12/18/17 00:00 12/26/17 21:47 Lactated Ringer's 1,000 ml @ 75 mls/hr [id number] IV 12/18/17 13:45 12/26/17 09:56 Piperacillin Sod/ Tazobactam Sod 50 ml @ 100 mls/hr Q6H IV 12/18/17 17:00 12/26/17 22:27 (KCl) 40 meq DAILY PRN PO 12/26/17 19:30 12/26/17 21:52 Family History reviewed and NC to current ID problems. Social History Quit smoking "years ago". States he smoked a pack of cigarettes per day for 30 years States he occasionally has a drink in the evening Denies illicit drug use Physical Exam Vital Signs Vital Signs Date Time Temp Pulse Resp B/P (MAP) Pulse Ox O2 Delivery O2 Flow Rate FiO2 12/26/17 18:00 78 12/26/17 17:00 72 12/26/17 16:00 73 12/26/17 15:00 98.0 79 16 151/70 (97) 98 12/26/17 15:00 84 12/26/17 14:00 72 12/26/17 13:00 71 12/26/17 12:52 98 21 12/26/17 12:00 74 12/26/17 11:00 98.1 68 18 135/77 (96) 99 12/26/17 11:00 81 12/26/17 10:00 78 12/26/17 09:00 80 12/26/17 08:00 81 12/26/17 07:00 80 12/26/17 07:00 98.5 83 18 151/72 (98) 96 12/26/17 06:00 74 12/26/17 05:00 76 12/26/17 04:00 98.8 80 20 138/65 (89) 96 12/26/17 04:00 80 12/26/17 03:00 72 12/26/17 02:00 76 12/26/17 01:00 74 12/26/17 00:00 82 12/26/17 00:00 99.1 82 20 150/65 (93) 96 12/25/17 22:00 80 Physical Exam GENERAL: This is a well-nourished, well-developed patient, in no apparent distress. SKIN: No rashes, ecchymoses or lesions. Cool and dry. HEAD: Atraumatic. Normocephalic. No temporal or scalp tenderness. EYES: Pupils equal round and reactive. Extraocular motions intact. No scleral icterus. No injection or drainage. ENT: Nose without bleeding, purulent drainage or septal hematoma. Throat without erythema, tonsillar hypertrophy or exudate. Uvula midline. Airway patent. NECK: Trachea midline. Supple, nontender, no meningeal signs. CARDIOVASCULAR: HS audible. RESPIRATORY: Clear to auscultation. Breath sounds equal bilaterally. No wheezes , rales, or rhonchi. GASTROINTESTINAL: Abdomen soft, diffuse tenderness, drain with green looking fluid. Midline surgical scar intact. MUSCULOSKELETAL: Extremities without clubbing, cyanosis, or edema. No joint tenderness, effusion, or edema noted. No calf tenderness. Negative Homans sign bilaterally. NEUROLOGICAL: Awake and alert. Cranial nerves II through XII intact. Motor and sensory grossly within normal limits. Five out of 5 muscle strength in all muscle groups. Normal speech. Cooperative IV line sites with no e.o infection. Laboratory Laboratory Tests Test 12/26/17 11:00 12/26/17 20:23 White Blood Count 8.0 Red Blood Count 2.78 Hemoglobin 9.2 Hematocrit 27.1 Mean Corpuscular Volume 97.4 Mean Corpuscular Hemoglobin 33.3 Mean Corpuscular Hemoglobin Concent 34.2 Red Cell Distribution Width 17.1 Platelet Count 328 Mean Platelet Volume 9.0 Blood Urea Nitrogen 4 Creatinine 0.92 Random Glucose 97 Calcium Level 7.6 Sodium Level 136 Potassium Level 3.3 3.4 Chloride Level 103 Carbon Dioxide Level 24.8 Anion Gap 8 Estimat Glomerular Filtration Rate 80 Date/Time Source Procedure Growth Status 12/18/17 17:14 Abscess Abdomen Gram Stain - Final Complete 12/18/17 17:14 Wound Culture - Final Escherichia Coli Enterococcus Faecalis Enterobacter Cloacae Complete Result Diagram: 12/26/17 1100 12/26/172022 Imaging Last Impressions Retroperitoneal Abscess Drainage 12/21/17 0000 Signed Impressions: Service Date/Time: Thursday, December 21, 2017 18:15 - CONCLUSION: Uncomplicated CT guided drainage. Sidney Mehta MD Abdomen/Pelvis CT 12/21/17 0000 Signed Impressions: Service Date/Time: Thursday, December 21, 2017 09:08 - CONCLUSION: 1. Mild interval decrease in the size of the loculated air-fluid collection below the right hemidiaphragm with no definite free air now identified. 2. Stable appearance of the abnormal cystic collection in the pelvis. 3. Mildly nonspecific bowel gas pattern again noted with small amount of free fluid in the pelvis. There is moderate diverticulosis again noted. 4. Small pleural effusions again noted right greater than left with mild consolidation in the posterior lung bases. Main Souza MD Abscess Drainage CT 12/18/17 0000 Signed Impressions: Service Date/Time: Monday, December 18, 2017 16:57 - CONCLUSION: Uncomplicated CT guided drainage. Patrice Turner MD CT Angiography 12/17/17 0000 Signed Impressions: Service Date/Time: Monday, December 18, 2017 00:34 - CONCLUSION: 1. No pulmonary embolus. 2. Cavitary mass in the superior segment of the right lower lobe. The differential would include malignancy and infection. 3. Right lower lobe pneumonia. 4. Chronic fibroemphysematous changes. 5. Small right pleural effusion. 6. Suspected colitis, only partly visualized. There is also apparent distention of the visualized colon and a colonic obstruction is possible. Abdomen radiographs are recommended. These colonic findings appear new from the comparison runoff. 7. Chronic appearing pericardial calcification. Coronary artery atherosclerotic calcification. Patrice Colmenares MD Chest X-Ray 12/16/17 0000 Signed Impressions: Service Date/Time: Saturday, December 16, 2017 14:30 - CONCLUSION: 1. Improving bibasilar airspace disease, particularly on the left where there also appears to be a resolving pleural effusion. 2. Heart size is normal. No overt findings of failure. 3. Stable calcification of the right apex pleura. Sidney Mehta MD Abdomen X-Ray 12/12/17 0000 Signed Impressions: Service Date/Time: December 15:46 - CONCLUSION: Multiple air-filled minimally dilated loops of small bowel and colon are noted suggesting possible postoperative ileus. Clinical correlation is recommended. Carlos Bell MD Aorta w/Runoff CTA 12/04/17 0000 Signed Impressions: Service Date/Time: Monday, December 04, 2017 20:18 - CONCLUSION: Significant aortoiliac disease with inflow stenosis compromising inflow. Poor SFA runoff to the foot on the right. Short segment common femoral occlusion on the left with poor SFA runoff to the foot. Danny Holley MD FACR Assessment and Plan Assessment and Plan Intra abdominal abscesses (RUQ abscess plus Retroperitoneal abscess) Gram negative infection (E.fecalis, E.coli and Enterobacter cloacae) severe stenosis bilateral common femoral artery stenosis. s/p aortobifemoral bypass and left femoral popliteal bypass by Dr. Jazarevic. Post op ileus: still with nausea and vomiting. Recs DC Zosyn IV Start Ampicillin IV for now. Start Oral levaquin if patient does not tolerate orally ok to change to IV formulation Dw intraop findings. If being sent to rehab will consider oral regimen if patient can tolerate and absorption reliable. Dr Maher to cover for me 12/27 to 12/29/17. Jacquelyn Mcnair MD Dec 26, 2017 21:47
[2017-12-27] VITALS (10 sets, daily range): BP systolic 130–149; BP diastolic 63–72; PULSE 67–79; RESP 20; TEMP 97.9–98.7; O2SAT 96–97
[2017-12-27] MEDS: AMPICILLIN INJ 2,000 MG in SODIUM CHLORIDE 0.9% INJ 100 ML IV SCH ×4 (02:24→13:46)
[2017-12-27] MEDS: ONDANSETRON HCL 4 MG/2 ML VIAL IV PUSH PRN (06:49)
[2017-12-27] MEDS ORDERED: LEVOFLOXACIN 500 MG TAB PO SCH (09:00)
[2017-12-27] MEDS: DULoxetine HCl DR 30 MG CAP PO SCH (09:10)
[2017-12-27] MEDS: CLOPIDOGREL 75 MG TAB PO SCH (09:11)
[2017-12-27] MEDS: METOPROLOL TARTRATE 50 MG TAB PO SCH (09:11)
[2017-12-27] MEDS: ENOXAPARIN SODIUM 40 MG/0.4 ML SYRINGE SQ SCH (13:39)
[2017-12-27] MEDS: fentaNYL 25 MCG/HR PATCH T-DERMAL SCH (13:41)
[2017-12-27] MEDS: REMOVE OLD PATCH T-DERMAL SCH (13:45)
[2017-12-27] MEDS: LACTATED RINGER'S 1000 ML INJ 1,000 ML IV SCH (13:46)
[2017-12-27] MEDS ORDERED: METOCLOPRAMIDE HCL 10 MG TAB PO SCH (14:30)
[2017-12-27] MEDS ORDERED: METO-309 PO (14:46)
[2017-12-27] MEDS ORDERED: METO10TA PO (14:46)
--- NOTE | 2017-12-27 14:48 | PD.CAR.PN ---
CVT Progress Note Subjective/Hospital Course: 12/05/2017 As above noted in the H&P this patient has severe diffuse peripheral vascular disease with claudication at rest Patient has near total occlusion of common iliac arteries and then occlusion of the external iliac artery more distally with severe common femoral near occlusive disease and multilevel stenosis of both SFAs in the range of 90% Proximal popliteal arteries are equally diseased and trifurcations are stenosed in both legs Dominant vessel to left and right foot is anterior tibial artery and rest of the vessels are bits and pieces segmented throughout Patient needs aortobifemoral bypass and essentially bilateral femoral-popliteal bypass but his left leg is more symptomatic even at rest Patient will undergo aortobifemoral bypass and possibly left femoral-popliteal bypass tomorrow There is a small chance that aorta will be so calcified that it would be hard to enter. At that point we would convert to axillobifemoral bypass Discussed with patient at length the benefits and the risks of the procedure 12/07/2017 Patient is status post aortobifemoral bypass and left femoral-popliteal bypass with endarterectomy of the aorta and external iliac/common femoral arteries Patient is extubated since yesterday awake alert and oriented Pain appears to be well controlled Hemodynamically patient is stable requiring small amount of Levophed Abdomen soft few bowel sounds incision is clean and dry Groins are clean dry patient has excellent distal dopplerable pulses in feet are warm We will continue IV hydration n.p.o. status except for medication and general support Would keep patient on bedrest for at least another day considering the extent of surgery his age and comorbidities Doing very well at this time Help Desk Team Leader help greatly appreciated 12/08/2017 Patient doing very well this morning Awake alert and oriented Abdomen soft incision clean and dry, few bowel sounds Excellent distal pulses in both legs. Feet are warm well perfused good capillary refill Out of bed Patient at this point is fluid overloaded and being third day should start mobilizing third space. We will give Lasix to help along and decrease IV rate to maintenance All things equal patient will be able to leave the unit tomorrow 12/09/2017 Patient doing very well Diuresis fair amount of urine and decreased in third space with some volume extracellular contraction Neurologically remains intact Abdomen soft incision clean and dry Bilateral femoral pulses palpable bilateral popliteal by Doppler Ray pedis posterior tibial by Doppler Feet are nice and warm and patient is well-perfused as opposed to before surgery Still remains somewhat hypervolemic but is gradually going to mobilize Plan Out of bed and ambulate Aggressive physical and occupational therapy Transfer to floor Remove arterial line and central line and dismantle the patient of unnecessary equipment We will start on clear liquids 12/10/2017 Patient doing well at this time Incision abdomen clean and dry Groin incisions clean and dry excellent bilateral perfusion Abdomen soft some hypoactive bowel sounds still persistent partial ileus Remains on clear liquids and will not advance until patient passes gas and has bowel movement Somewhat nauseous Plan Out of bed patient needs to ambulate more actively Adequate change in pain control Urology consult patient has significant swelling of the scrotum and penile skin obviously to do the dependent portion but this may be interfering with the removal of the Pairkh catheter Rehab referral patient will transfer to [facility] as soon as diet is advanced and patient is well 12/11/2017 Patient doing okay at this time Abdominal groin and leg incisions clean and dry Great pulse in the left femoropopliteal graft and bilateral palpable femoral pulses Bilateral good breath sounds with some crackles over the bases Abdomen is distended and patient has persistent ileus which is not uncommon after large retroperitoneal surgery of the sorts We will reinsert NG tube the patient decompresses for if he throws up he will aspirate and then will have much bigger problem on her hands Medication can still be given through the tube Hemoglobin 7.9, in face of coronary disease will transfuse 1 unit PRBC Patient needs to ambulate and be up and around Patient is probably somewhat fluid overloaded at this point based on clinical indices, generalized edema and lung exam with some crackles over the bases. On the other hand it is very hard to tell from the intake output summaries for these are completely incorrect and unreliable 12/12/2017 Patient doing better this morning Incisions are clean and dry Excellent distal pulses Patient still has some degree of generalized edema. Abdomen is soft hypoactive bowel sounds somewhat tender on palpation but patient is more complaining by the NG tube and is extremely anxious Persistent postoperative ileus although bowel movement yesterday Had to place an NG tube which drained about a liter over the last 24 hours of green succus entericus We will leave the NG tube until ileus resolves With retroperitoneal surgery ileus is common and only time will fix it Decrease IV rate and place on daily Lasix 12/13/2017 Patient better today Awake alert but somewhat unusual affect very anxious had hallucinations We will be seeing Dilyasid because this might be the culprit and switched to morphine Excellent proximal and distal pulses Incisions are clean and dry abdomen is softer but still moderately distended with very hypoactive bowel sounds consistent with prolonged paralytic ileus in face of extensive abdominal surgery NG tube over a liter in last 24 hours however this is been the cause of problems because of nurses inability to properly manage the NG tube On top of it NG tube somehow "came out" and needs to be reinserted KUB confirms paralytic ileus which is of course combination of surgery and narcotics administration for mobilization of the patient I am also worried about the ileus resolving but I am worried about patient developing atelectasis and eventually pneumonia it is absolutely Critical the patient walks in the choroid hours and have time devoted to him by physical therapy as well as nursing, rather than laying in bed 12/14/2017 Patient doing much better today He was very confused yesterday but much better today Abdomen soft hypoactive bowel sounds distention definitely decreased Ileus slowly resolving patient passing gas but no bowel movements NG tube about 800 cc over 24 hours We will keep NG tube for another day patient needs to ambulate and be out of bed to prevent pneumonia Probably NG tube will come out tomorrow all things equal 12/15/2017 Patient awake alert and oriented and slightly confused Abdomen soft hypoactive bowel sounds definitely decompressed but on percussion tympanic with obviously small bowel and colonic ileus We will give some laxatives to help patient along Cannot remove the NG tube to patient passes gas and has good bowel movement Incisions are clean and dry and patient has good peripheral perfusion 12/16/2017 Patient is a febrile White count elevated 14,000 with some left shift due to bilateral atelectasis left more than the right He is awake alert and oriented in time space and person Patient has a very unusual affect with lots of grimacing and inability to truly express very well although he answers simple questions normally Appears has encephalopathy on top of patient's early cognitive deficits from time before the surgery We will consult neuropsychology to evaluate the patient this may be effective the medications Incisions are clean and dry Abdomen is soft active bowel sounds and nasogastric drainage is decreased Patient is passing large amounts of gas and having 3 bowel movements today Ileus is resolving Patient will need active and very aggressive rehabilitation in order to be functional again Plan Neuropsychology consult DC NG tube Clear liquid diet Will stop morphine and Xanax at this point because patient is pinpoint and acting in the usual fashion Check liver function studies as well as ammonia level Patient will need rehab the next few days for this set him back physically significantly 12/25/2017 Status post aortobifemoral and left femoral-popliteal bypass Patient doing quite better today he is awake alert oriented and in good mood Abdomen is soft active bowel sounds Incision is clean and dry and will will remove the ander today Drainage from the right upper quadrant pigtail is very minimal but 20 cc per 24 hours of clear to turbid yellowish fluid and I will leave it in for another few days to completely dries up There is very little question my mind that this patient probably silently perforated diverticulum of transverse colon sometimes with the first week of postoperative care, developed collection and then subsequently diarrhea This probably sealed off early in the course however were still draining the residual fluid from it Good distal pulses feet are warm and swelling is decreased Patient is apparently ambulating much better at this time and once the drain is out he will transfer to rehab [place] [facility] and if patient unable to void will go as per [facility] protocol 12/26/2017 Patient doing very well at this time Abdomen is soft active bowel sounds Palpable bilateral femoral pulses strong dopplerable popliteal dorsalis pedis and posterior tibial pulses left better than right in face of femoropopliteal bypass Feet are warm Patient is taking better diet but still having some problems with diarrhea probably due to high caloric supplements which can give diarrhea Right upper quadrant drain is not draining anything anymore it is dried up and will be removed Patient can transfer to rehab tomorrow on p.o. antibiotics for another week 12/27/2017 Patient doing very well Abdomen soft active bowel sounds patient complains but belching Tolerating p.o. diet but does not have appetite Bowel movements have hardened up and patient does not have diarrhea as he had before On Levaquin p.o. Transfer to rehab Patient needs extensive physical therapy and ambulation Bilateral breath sounds decreased over the both lung ramon basally Patient is developing atelectasis for he is unwilling to get out of bed walk and work with physical therapy and all Every day he spends more in chair instead of walking will be 1 week longer for rehabilitation 12/17/17 VSS WBC 14 K Patient awake and alert but sometimes confused and talks about some fantasies. Bilateral BS decreased over the R and L base. Patient has some atelectasis due to inactivity and BR Abdomen soft, ileus resolved. Incision clean/dry healing nicely. Patient has had 8 BMs today. Refuses to eat because he "burps" and cigars will come out.... Neuropsychology Dr Juarez consult greatly appreciated Patient is very slaow to work with PT/OT Once on diet can transfer to rehab. 12/19/17 Patient doing better RUQ suprahepatic collection 6x5 cm aspirated successfully by radiology. Abdomen soft, active BS Aorto-bifem open good perfusion of legs SS drainage popliteal upper part of incision Tolerates diet better and encouraged to take p.o. Encouraged to work with PT/OT On Zosyn IV Plan to transfer to rehab once all issues cleared up. 12/23/2017 Patient definitely doing better at this time Bilateral breath sounds good inspiratory effort Patient moving around with ease Having regular bowel movements semi-formed Abdomen soft active bowel sounds in incision is clean and dry Leg incision is clean well-healed As noted above patient developed right upper quadrant abscess and I believe patient must have had a perforated diverticulum in the right upper quadrant as a result of ileus and bowel dilatation for he does have diffuse diverticula throughout the bowel also on the right side. This is almost completely sealed off at this time for there is no gas in it however drain is to remain in place for the time being until this completely disappears As far as this closing and disappearing nutritional status is of paramount importance Unfortunately patient is not taking well p.o. for he says that food does not taste good We will place on some Reglan for gastric motility the patient does have chronic gastroparesis Continue antibiotics In addition patient is a tiny decubitus on his sacrum and wound care input and management is greatly appreciated 12/24/2017 Patient doing better today Awake alert and oriented but somewhat confused at times asking unusual questions Tolerates diet better and he is varying much being encouraged to take high caloric supplements with each meal but still not eating as I would like him to Ambulating around the room and in the corridor with physical therapy Abdomen soft active bowel sounds incision clean and dry Will remove ander Saturday Drainage from the right upper quadrant collection is only but 100 cc per 24 hours and this is slowly drying up Patient remains afebrile with normal white count At this point the only issue is the drain which should stay in for another few days then once it is removed patient can be transferred to rehab Objective: Vital Signs Date Time Temp Pulse Resp B/P (MAP) Pulse Ox O2 Delivery O2 Flow Rate FiO2 12/27/17 11:54 98.0 69 20 149/72 (97) 96 12/27/17 07:15 98.7 71 20 143/64 (90) 97 12/27/17 07:15 71 12/27/17 06:12 74 12/27/17 05:40 79 12/27/17 04:21 68 12/27/17 03:30 98.4 71 20 130/63 (85) 97 12/27/17 03:30 72 12/27/17 02:41 71 12/27/17 01:43 69 12/27/17 00:00 67 12/26/17 23:40 98.6 80 20 133/66 (88) 98 12/26/17 23:00 78 12/26/17 22:00 68 12/26/17 21:00 72 12/26/17 20:00 67 12/26/17 19:10 96 12/26/17 19:10 98.5 79 20 133/61 (85) 98 12/26/17 18:00 78 12/26/17 17:00 72 12/26/17 16:00 73 12/26/17 15:00 98.0 79 16 151/70 (97) 98 12/26/17 15:00 84 Result Diagram: 12/26/17 1100 12/26/172022 (1) Sinus tachycardia (2) Right upper quadrant abscess (3) PAD (peripheral artery disease) (4) S/P femoral-popliteal bypass surgery (5) CAD S/P percutaneous coronary angioplasty (6) HTN (hypertension) (7) HLD (hyperlipidemia) Madi Anna MD Dec 27, 2017 14:48
[2017-12-27] MEDS ORDERED: OXYC1TAB63 PO (16:59)
[2017-12-27] MEDS ORDERED: LEVA500T33 PO (16:59)
[2017-12-27] MEDS ORDERED: PLAV75TA29 PO (16:59)
[2017-12-27] MEDS ORDERED: TERA5CAP3 PO (16:59)
--- NOTE | 2017-12-30 12:01 | PD.NP.DS ---
Discharge Summary Reason for Referral: The patient is a 77 year old right handed male who initially presented with severe claudication and inability to walk more than 30 feet with severe pain in his legs and hips. He has a past medical history of CAD, HTN, hyperlipidemia, GERD, OA and BPH. He underwent aortobifemoral bypass, and now presents with some agitation/restlessness, usual affect with grimacing and problems expressing his desires. Nursing reported some improvement in status since d/ cing certain medications, specifically benzos and narcotics, and that his encephalopathic condition appears improving. At the request of his vascular surgeon, this patient is referred for baseline neurobehavioral status examination to assess cognitive, behavioral and emotional aspects of the injury and to provide treatment recommendations. He was seen throughout his inpatient stay, and consensus was to start him on Cymbalta 30 BID for underlying depression issues. He was stable from a neurobehavioral standpoint, although at times somewhat confused, on discharge. Past Medical History: Please refer to the patient's history and physical for information concerning the patient's past medical, surgical, and psychiatric histories. Education/Learning Hx: The patient completed high school years of education. There is no report of learning difficulties, grade repetitions or behavioral difficulties. The patient was retired. He is . The patient lives in [place], [place]. Premorbid Cognitive, Emotional and Behavioral Status: Stable. The patient has high school years of education and a solid work history prior to this injury. The patient has no prior psychiatric difficulties, as described above. However, there is a report of prior depressive disorder. Substance abuse history is unremarkable. Behavioral Reactions of Patient and Family/Support System: Stable. The patients family is experiencing ongoing issues of adjustment given the nature of the injury, and this aspect of recovery will require ongoing monitoring. Emotional/Behavioral Status of Patient and Family/Support System: Stable. Pertinent issues, if appropriate to this patients clinical care, are described in detail above. Treatment Interventions: During the course of their acute care stay, this patient and their family/ support system were provided information concerning the neuropsychological aspects of the injury, education regarding course of recovery, and psychological support in the form of counseling with the person served and the family/support system as documented in the neuropsychology service progress notes, as deemed clinically appropriate. Current, Cognitive, Emotional and Behavioral Status: Stable. This patient has experienced a severe injury, and will be adjusting to significant cognitive , emotional and behavioral challenges going forward. 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, Unspecified Depressive Disorder CODE: F32.9 The above listed diagnoses are supported by the following clinical criteria: Mild Neurocognitive Disorder: This person demonstrates a significant cognitive decline from a previous level of estimated baseline performance in one or more cognitive domains (complex attention, executive functioning, learning and memory , language, perceptual-motor, or social cognition) based on the patients / informants report, further documented by todays testing results, with these cognitive deficits not interfering with the patients independence in everyday activities. Status of Family/Support System Adjustment: Deferred. The patients family/ support system will experience ongoing issues of adjustment given the nature of the injury, and this aspect of the patients recovery will require ongoing monitoring. Post Acute Recommendations: It is recommended that the patient continue to be monitored for behavioral impulsivity as they continue to be early in their course of recovery. This patients neuropathological challenges may limit their reintegration into work and family life going forward, and these challenges may require specialized therapeutic skills to maximize outcome. Continued psychological follow-up at rehab. Thank you for the opportunity to assist in this patients care. Preston Juarez, Ph.D., ABPP Board Certified in Clinical Neuropsychology [place] [employer] [place] Licensed Psychologist #[id number] Preston Juarez PhD Dec 30, 2017 12:01 pm
== END 2017-12-27 17:23 | DRG 268 ==
LOC: N07B 11:00 → N03B 12-06 17:53 → HCVI 12-06 23:21 → HCPC 12-09 17:49
PROVIDERS: ADMIT Surgery; ATTEND Surgery
PROC: 04CH0ZZ Extirpation of Matter from Right External Iliac Artery, Open Approach (ICD-10-PCS; 2017-12-06)
PROC: 04CL0ZZ Extirpation of Matter from Left Femoral Artery, Open Approach (ICD-10-PCS; 2017-12-06)
PROC: 04CK0ZZ Extirpation of Matter from Right Femoral Artery, Open Approach (ICD-10-PCS; 2017-12-06)
PROC: 04100JK Bypass Abdominal Aorta to Bilateral Femoral Arteries with Synthetic Substitute, Open Approach (ICD-10-PCS; 2017-12-06)
PROC: 041L0JL Bypass Left Femoral Artery to Popliteal Artery with Synthetic Substitute, Open Approach (ICD-10-PCS; 2017-12-06)
PROC: 04C00ZZ Extirpation of Matter from Abdominal Aorta, Open Approach (ICD-10-PCS; principal; 2017-12-06 11:31)
PROC: 04CJ0ZZ Extirpation of Matter from Left External Iliac Artery, Open Approach (ICD-10-PCS; 2017-12-06 11:31)
PROC: 30233N1 Transfusion of Nonautologous Red Blood Cells into Peripheral Vein, Percutaneous Approach (ICD-10-PCS; 2017-12-07)
PROC: 0W9G3ZX Drainage of Peritoneal Cavity, Percutaneous Approach, Diagnostic (ICD-10-PCS; 2017-12-18)
PROC: 0W9H3ZX Drainage of Retroperitoneum, Percutaneous Approach, Diagnostic (ICD-10-PCS; 2017-12-21)
DX: I70.213 Atherosclerosis of native arteries of extremities with intermittent claudication, bilateral legs (principal); K65.1 Peritoneal abscess; K68.19 Other retroperitoneal abscess; G93.40 Encephalopathy, unspecified; L89.159 Pressure ulcer of sacral region, unspecified stage; I11.0 Hypertensive heart disease with heart failure; K56.0 Paralytic ileus; E87.0 Hyperosmolality and hypernatremia; I50.22 Chronic systolic (congestive) heart failure; D62 Acute posthemorrhagic anemia; J98.11 Atelectasis; F33.9 Major depressive disorder, recurrent, unspecified; R44.3 Hallucinations, unspecified; D69.6 Thrombocytopenia, unspecified; E88.09 Other disorders of plasma-protein metabolism, not elsewhere classified; J44.9 Chronic obstructive pulmonary disease, unspecified; E83.51 Hypocalcemia; E86.1 Hypovolemia; I25.10 Atherosclerotic heart disease of native coronary artery without angina pectoris; K21.9 Gastro-esophageal reflux disease without esophagitis; N40.0 Benign prostatic hyperplasia without lower urinary tract symptoms; I70.0 Atherosclerosis of aorta; E78.5 Hyperlipidemia, unspecified; R73.09 Other abnormal glucose; I95.81 Postprocedural hypotension; M19.90 Unspecified osteoarthritis, unspecified site; R00.0 Tachycardia, unspecified; D53.9 Nutritional anemia, unspecified; N48.89 Other specified disorders of penis; N50.89 Other specified disorders of the male genital organs; R41.89 Other symptoms and signs involving cognitive functions and awareness; I25.2 Old myocardial infarction; Z95.5 Presence of coronary angioplasty implant and graft; Z87.891 Personal history of nicotine dependence; Z79.82 Long term (current) use of aspirin
CPT/HCPCS: 36430; 49406; 71045; 71275; 74018; 74177; 75635; 75989; 76937; 80048; 80053; 80076; 82140; 82533; 82550; 82552; 82805; 82948; 83735; 84100; 84132; 84155; 84484; 85007; 85014; 85018; 85025; 85027; 85610; 86850; 86900; 86901; 86920; 87070; 87077; 87186; 87205; 87493; 88304; 88311; 93005; 93306; 94150; 94640; 94664; 99152; 99153; C1729; C1768; C1769; C9113; J0131; J0290; J0610; J0690; J1100; J1170; J1644; J1650; J1940; J2060; J2250; J2270; J2370; J2405; J2543; J2720; J3010; J3475; J3480; J7030; J7040; J7050; J7060; J7120; P9016; P9045; Q9967